=== PATIENT | male | born 1980 | race Caucasian/White ===

== ENCOUNTER 2017-03-18 13:49 | Emergency (ER) | payer MEDICAID ==
[~2017-03-18] VITALS: Ht 182.9 cm; Wt 93.2 kg
[~2017-03-18 13:49] MED LIST: ACET325T21 PO; CHLO10CA6 PO; CYAN500L PO; DIAZ10TA PO; FOLI-17 PO; GABA300C10 PO; HYDR100T25 PO; HYDR10TA4 PO; LEVO750T26 PO; LORA-446 PO; MULT-508 PO; MULT1TAB76 PO; OMEP-110 PO; ONDA4TAB7 PO; ONDA4VIA4 PO; OXYC1TAB7 PO; OXYC5TAB3 PO; PANT40VI PO; SERT100T5 PO; SERT50TA5 PO; SUCR1TAB PO; THIA100T10 PO; THIA50TA PO; TRAM-28 PO; TRAZ100T15 PO; TRAZ150T68 PO
[2017-03-18] MEDS ORDERED: SODIUM CHLORIDE 0.9% 1,000 ML IV ONE (13:57)
[2017-03-18] MEDS ORDERED: SODIUM CHLORIDE 0.9% 1,000ML IVBOLUS ONE (14:00)
[2017-03-18] MEDS ORDERED: THIAMINE 100 MG in SODIUM CHLORIDE 0.9% 50 ML IVPB ONE (14:00)
[2017-03-18] MEDS ORDERED: SODIUM CHLORIDE FLUSH 10ML SYR IVF ONE (14:00)
[2017-03-18 19:13] VITALS: BP 136/72
== END 2017-03-18 19:15 | disposition home or self-care (01) ==
LOC: ED 17:17
DX: F10.129 Alcohol abuse with intoxication, unspecified (principal)
CPT/HCPCS: 96361; 96365; 99285; J3411; J7030

== ENCOUNTER 2017-07-13 20:48 | Emergency (ER) | payer MEDICAID ==
[~2017-07-13] VITALS: Ht 182.9 cm; Wt 100.0 kg
[~2017-07-13 20:48] MED LIST changes: -CYAN500L PO; +CYAN500L2 PO; -TRAM-28 PO; +TRAM-47 PO; +TRAZ150T62 PO; -TRAZ150T68 PO
[2017-07-13] MEDS ORDERED: SODIUM CHLORIDE FLUSH 10ML SYR IVF ONE (21:00)
[2017-07-13] MEDS ORDERED: SODIUM CHLORIDE 0.9% 1,000ML IVBOLUS ONE ×2 (21:00→22:30)
[2017-07-13] MEDS ORDERED: ONDANSETRON 2MG/ML, 2ML IVPush ONE (21:00)
[2017-07-13 21:18] LABS: HEMATOCRIT 45.8 % (39.2-51.8); HEMOGLOBIN 15.9 g/dL (13.7-18.0); WHITE BLOOD COUNT 6.9 x10^3/uL (3.4-10)
[2017-07-13] MEDS ORDERED: ONDANSETRON 2MG/ML, 2ML ONE (21:19)
[2017-07-13 21:26] LABS: ASPARTATE AMINO TRANSFERASE 35 U/L (15-37); BLOOD UREA NITROGEN 8 mg/dL (7-18)
[2017-07-13] MEDS ORDERED: LORazepam 2 MG/ML, 1ML IVPush ONE (21:30)
[2017-07-13] MEDS ORDERED: LORazepam 2 MG/ML, 1ML ONE (22:06)
[2017-07-13 23:39] VITALS: BP 126/77
== END 2017-07-13 23:43 | disposition home or self-care (01) ==
LOC: ED 22:34
DX: R53.1 Weakness (principal); R11.2 Nausea with vomiting, unspecified
CPT/HCPCS: 36415; 80053; 80307; 81001; 83690; 85025; 85610; 85730; 93005; 96361; 96374; 96375; 99285; J2060; J2405; J7030; G0479

== ENCOUNTER 2018-01-19 21:00 | Emergency (ER) | payer MEDICAID ==
[~2018-01-19] VITALS: Ht 185.4 cm; Wt 100.0 kg
[2018-01-19] MEDS ORDERED: ONDANSETRON 2MG/ML, 2ML ONE (22:18)
[2018-01-19] MEDS ORDERED: ONDANSETRON 2MG/ML, 2ML IVPush ONE (22:30)
[2018-01-19] MEDS ORDERED: SODIUM CHLORIDE 0.9% 1,000ML IVBOLUS ONE (22:30)
[2018-01-19 22:52] LABS: MICROSCOPIC AUTO
[2018-01-19 22:52] LABS: BASOPHILS # (AUTO) 0.03 x10^3/uL (0-0.1); BASOPHILS % (AUTO) 0 % (0-1); EOSINOPHILS # (AUTO) 0.01 x10^3/uL (0-0.4); EOSINOPHILS % (AUTO) 0 % (1-7); LYMPHOCYTES # (AUTO) 1.43 x10^3/uL (1-3.4); LYMPHOCYTES % (AUTO) 21 % (22-44); MD NO; MEAN CORPUSCULAR HEMOGLOBIN 31.9 pg (27.5-34.5); MEAN CORPUSCULAR HGB CONC 34.2 g/dL (33.2-36.2); MEAN CORPUSCULAR VOLUME 93.2 fL (81-97); MEAN PLATELET VOLUME 7.8 fL (7.4-10.4); MONOCYTES # (AUTO) 0.71 x10^3/uL (0.2-0.8); MONOCYTES % (AUTO) 10 % (2-9); NEUTROPHILS # (AUTO) 4.63 x10^3/uL (1.8-6.8); NEUTROPHILS % (AUTO) 68 % (42-75); PLATELET COUNT 156 x10^3/uL (130-400); RED BLOOD COUNT 4.47 x10^6/uL (4.38-5.82); RED CELL DISTRIBUTION WIDTH 16.3 % (9.4-14.8)
[2018-01-19 22:54] LABS: CULTURE INDICATED? NO
[2018-01-19 22:56] LABS: AMPHETAMINE SCREEN, URINE Negative (Negative); BARBITURATE SCREEN, URINE Negative (Negative); BENZODIAZEPINE SCREEN, URINE Negative (Negative); CANNABINOID SCREEN, URINE Negative (Negative); COCAINE SCREEN, URINE Negative (Negative); METHADONE SCREEN, URINE Negative (Negative); OPIATE SCREEN, URINE Negative (Negative)
[2018-01-19 23:03] LABS: ALBUMIN 3.4 g/dL (3.4-5.0); ANION GAP 12 mmol/L (5-15); CALCIUM 7.9 mg/dL (8.5-10.1); CHLORIDE 97 mmol/L (98-107); CREATININE 0.81 mg/dL (0.7-1.3)
[2018-01-19 23:04] LABS: ALANINE AMINOTRANSFERASE 41 U/L (12-78)
[2018-01-19 23:06] LABS: ALKALINE PHOSPHATASE 43 U/L (45-117); BILIRUBIN,TOTAL 1.3 mg/dL (0.2-1.0); TOTAL PROTEIN 6.8 g/dL (6.4-8.2)
[2018-01-20 00:04] VITALS: BP 149/91
== END 2018-01-20 00:23 | disposition home or self-care (01) ==
LOC: ED 23:01
DX: K29.20 Alcoholic gastritis without bleeding (principal); Z79.899 Other long term (current) drug therapy
CPT/HCPCS: 36415; 80053; 80307; 81001; 83690; 85025; 96374; 99284; J2405; J7030

== ENCOUNTER 2018-02-06 13:31 | Emergency (ER) | payer MEDICAID ==
[~2018-02-06] VITALS: Ht 188 cm; Wt 108.0 kg
[2018-02-06 13:59] LABS: BASOPHILS # (AUTO) 0.07 x10^3/uL (0-0.1); BASOPHILS % (AUTO) 1 % (0-1); EOSINOPHILS % (AUTO) 0 % (1-7); LYMPHOCYTES # (AUTO) 1.26 x10^3/uL (1-3.4); LYMPHOCYTES % (AUTO) 13 % (22-44); MD NO; MEAN CORPUSCULAR HEMOGLOBIN 30.9 pg (27.5-34.5); MEAN CORPUSCULAR HGB CONC 33.8 g/dL (33.2-36.2); MEAN CORPUSCULAR VOLUME 91.3 fL (81-97); MEAN PLATELET VOLUME 7.1 fL (7.4-10.4); MONOCYTES # (AUTO) 0.47 x10^3/uL (0.2-0.8); MONOCYTES % (AUTO) 5 % (2-9); NEUTROPHILS # (AUTO) 7.68 x10^3/uL (1.8-6.8); NEUTROPHILS % (AUTO) 81 % (42-75); PLATELET COUNT 256 x10^3/uL (130-400); RED BLOOD COUNT 5.13 x10^6/uL (4.38-5.82); RED CELL DISTRIBUTION WIDTH 16.8 % (9.4-14.8)
[2018-02-06] MEDS ORDERED: SODIUM CHLORIDE FLUSH 10ML SYR IVF ONE (14:00)
[2018-02-06] MEDS ORDERED: LORazepam 2 MG/ML, 1ML IVPush PRN (14:00)
[2018-02-06] MEDS ORDERED: THIAMINE 100 MG in SODIUM CHLORIDE 0.9% 50 ML IVPB ONE (14:00)
[2018-02-06 14:12] LABS: ALANINE AMINOTRANSFERASE 41 U/L (12-78); ALBUMIN 3.8 g/dL (3.4-5.0); ANION GAP 16 mmol/L (5-15); CALCIUM 9.2 mg/dL (8.5-10.1); CHLORIDE 99 mmol/L (98-107); CREATININE 1.01 mg/dL (0.7-1.3)
[2018-02-06] MEDS ORDERED: SERT50TA5 PO (14:15)
[2018-02-06] MEDS ORDERED: HYDROXYZINE (14:15)
[2018-02-06] MEDS ORDERED: NALT50TA PO (14:15)
[2018-02-06 14:22] LABS: ALKALINE PHOSPHATASE 53 U/L (45-117); BILIRUBIN,TOTAL 0.7 mg/dL (0.2-1.0); TOTAL PROTEIN 7.4 g/dL (6.4-8.2)
[2018-02-06 14:32] LABS: INTERNATIONAL NORMALIZED RATIO 1.07 (0.93-1.1); PROTHROMBIN TIME 11.1 Seconds (9.6-11.5)
[2018-02-06] MEDS ORDERED: ONDANSETRON ODT 4 MG ONE (14:41)
[2018-02-06] MEDS ORDERED: ONDANSETRON ODT 4 MG PO ONE (15:00)
[2018-02-06 15:18] VITALS: BP 144/96
== END 2018-02-06 15:28 | disposition home or self-care (01) ==
LOC: ED 15:22
DX: F10.239 Alcohol dependence with withdrawal, unspecified (principal); R11.2 Nausea with vomiting, unspecified; F32.9 Major depressive disorder, single episode, unspecified; F41.9 Anxiety disorder, unspecified
CPT/HCPCS: 36415; 80053; 83690; 85025; 85610; 85730; 93005; 96365; 99285; J3411; Q0162

== ENCOUNTER 2018-03-04 22:53 | Emergency (ER) | payer MEDICAID ==
[~2018-03-04] VITALS: Ht 182.9 cm; Wt 109.0 kg
[~2018-03-04 22:53] MED LIST changes: +CHLO25CA9 PO; +HYDROXYZINE; +NALT50TA PO; +THIA100T6 PO
[2018-03-04] MEDS ORDERED: SODIUM CHLORIDE 0.9% 1,000ML IVBOLUS ONE (23:30)
[2018-03-04] MEDS ORDERED: KETOROLAC 30 MG/1 ML IVPush ONE (23:30)
[2018-03-04] MEDS ORDERED: KETOROLAC 30 MG/1 ML ONE (23:51)
[2018-03-04 23:55] LABS: BASOPHILS # (AUTO) 0.01 x10^3/uL (0-0.1); BASOPHILS % (AUTO) 0 % (0-1); EOSINOPHILS % (AUTO) 0 % (1-7); LYMPHOCYTES # (AUTO) 0.96 x10^3/uL (1-3.4); LYMPHOCYTES % (AUTO) 24 % (22-44); MD NO; MEAN CORPUSCULAR HGB CONC 34.1 g/dL (33.2-36.2); MEAN CORPUSCULAR VOLUME 93.9 fL (81-97); MEAN PLATELET VOLUME 7.4 fL (7.4-10.4); MONOCYTES # (AUTO) 0.46 x10^3/uL (0.2-0.8); MONOCYTES % (AUTO) 11 % (2-9); NEUTROPHILS # (AUTO) 2.59 x10^3/uL (1.8-6.8); NEUTROPHILS % (AUTO) 64 % (42-75); PLATELET COUNT 157 x10^3/uL (130-400); RED BLOOD COUNT 4.74 x10^6/uL (4.38-5.82); RED CELL DISTRIBUTION WIDTH 18.3 % (9.4-14.8)
[2018-03-05 00:05] LABS: ANION GAP 14 mmol/L (5-15); CALCIUM 9.8 mg/dL (8.5-10.1); CHLORIDE 97 mmol/L (98-107); CREATININE 1.08 mg/dL (0.7-1.3)
[2018-03-05 00:44] VITALS: BP 156/95
== END 2018-03-05 00:55 | disposition home or self-care (01) ==
LOC: ED 23:22
DX: F41.1 Generalized anxiety disorder (principal); M79.1 Myalgia; R42 Dizziness and giddiness; R11.2 Nausea with vomiting, unspecified; F32.9 Major depressive disorder, single episode, unspecified; Z91.018 Allergy to other foods
CPT/HCPCS: 36415; 80048; 80307; 85025; 93005; 96361; 96374; 99285; J1885; J7030

== ENCOUNTER 2018-03-13 20:29 | Emergency (ER) | payer MEDICAID ==
[~2018-03-13] VITALS: Ht 182.9 cm; Wt 110.0 kg
[2018-03-13 21:24] LABS: MEAN CORPUSCULAR HEMOGLOBIN 32.3 pg (27.5-34.5); MEAN CORPUSCULAR HGB CONC 34.3 g/dL (33.2-36.2); MEAN CORPUSCULAR VOLUME 94.3 fL (81-97); PLATELET COUNT 161 x10^3/uL (130-400); RED BLOOD COUNT 4.49 x10^6/uL (4.38-5.82); RED CELL DISTRIBUTION WIDTH 17.9 % (9.4-14.8)
[2018-03-13] MEDS ORDERED: SODIUM CHLORIDE FLUSH 10ML SYR IVF ONE (21:30)
[2018-03-13] MEDS ORDERED: SODIUM CHLORIDE 0.9% 1,000ML IVBOLUS ONE (21:30)
[2018-03-13 21:34] LABS: D-DIMER 0.36 ug/mlFEU (0.00-0.52); INTERNATIONAL NORMALIZED RATIO 1.07 (0.93-1.1); PROTHROMBIN TIME 11.1 Seconds (9.6-11.5)
[2018-03-13 21:35] LABS: ALANINE AMINOTRANSFERASE 68 U/L (12-78); ALBUMIN 4.1 g/dL (3.4-5.0); ANION GAP 15 mmol/L (5-15); CHLORIDE 99 mmol/L (98-107); CREATININE 1.23 mg/dL (0.7-1.3)
[2018-03-13 21:39] LABS: ALKALINE PHOSPHATASE 49 U/L (45-117); BILIRUBIN,TOTAL 1.2 mg/dL (0.2-1.0); TOTAL PROTEIN 7.6 g/dL (6.4-8.2); TROPONIN I < 0.015 ng/mL (0.000-0.045)
[2018-03-13 21:46] LABS: MD MORPH REVIEW ONLY
[2018-03-13 21:47] LABS: BASOPHILS # (AUTO) 0.02 x10^3/uL (0-0.1); BASOPHILS % (AUTO) 0 % (0-1); EOSINOPHILS % (AUTO) 0 % (1-7); LYMPHOCYTES # (AUTO) 0.89 x10^3/uL (1-3.4); LYMPHOCYTES % (AUTO) 22 % (22-44); MONOCYTES # (AUTO) 0.35 x10^3/uL (0.2-0.8); MONOCYTES % (AUTO) 9 % (2-9); NEUTROPHILS # (AUTO) 2.79 x10^3/uL (1.8-6.8); NEUTROPHILS % (AUTO) 69 % (42-75)
[2018-03-13 21:48] LABS: ANISOCYTOSIS 1+
[2018-03-13 21:49] LABS: <PLATELET ESTIMATE> ADEQUATE; <PLT MORPHOLOGY> NORMAL PLT MORPH
[2018-03-13 22:37] VITALS: BP 131/90
== END 2018-03-13 22:39 | disposition home or self-care (01) ==
LOC: ED 21:57
DX: R07.2 Precordial pain (principal); F10.20 Alcohol dependence, uncomplicated; Z91.018 Allergy to other foods
CPT/HCPCS: 36415; 71045; 80053; 80307; 83690; 84484; 85025; 85379; 85610; 85730; 93005; 99285; J7030

== ENCOUNTER 2018-03-27 13:08 | Inpatient (IN) | payer MEDICAID ==
[~2018-03-27] VITALS: Ht 182.9 cm; Wt 106.1 kg
[2018-03-27] MEDS ORDERED: MAGNESIUM SULFATE 1 GM, THIAMINE 100 MG, FOLIC ACID 1 MG, MVI ADULT 10 ML in SODIUM CHL... IV ONE (13:30)
[2018-03-27] MEDS ORDERED: SODIUM CHLORIDE FLUSH 10ML SYR IVF ONE (13:30)
[2018-03-27] MEDS ORDERED: SODIUM CHLORIDE 0.9% 1,000ML IVBOLUS ONE (13:30)
[2018-03-27] MEDS ORDERED: CHLORDIAZEPOXIDE 25 MG CAPSULE PO ONE (13:30)
[2018-03-27] MEDS ORDERED: LORazepam 2 MG/ML, 1ML ONE ×2 (13:59→14:55)
[2018-03-27] MEDS ORDERED: CHLORDIAZEPOXIDE 25 MG CAPSULE ONE (13:59)
[2018-03-27] MEDS: LORazepam 2 MG/ML, 1ML IVPush PRN ×4 (14:03→17:28)
[2018-03-27 14:22] LABS: BASOPHILS # (AUTO) 0.01 x10^3/uL (0-0.1); BASOPHILS % (AUTO) 0 % (0-1); EOSINOPHILS % (AUTO) 0 % (1-7); LYMPHOCYTES # (AUTO) 0.57 x10^3/uL (1-3.4); LYMPHOCYTES % (AUTO) 12 % (22-44); MD NO; MEAN CORPUSCULAR HEMOGLOBIN 32.5 pg (27.5-34.5); MEAN CORPUSCULAR HGB CONC 33.9 g/dL (33.2-36.2); MEAN CORPUSCULAR VOLUME 95.8 fL (81-97); MEAN PLATELET VOLUME 7.1 fL (7.4-10.4); MONOCYTES # (AUTO) 0.19 x10^3/uL (0.2-0.8); MONOCYTES % (AUTO) 4 % (2-9); NEUTROPHILS # (AUTO) 4.05 x10^3/uL (1.8-6.8); NEUTROPHILS % (AUTO) 84 % (42-75); PLATELET COUNT 147 x10^3/uL (130-400); RED BLOOD COUNT 4.25 x10^6/uL (4.38-5.82); RED CELL DISTRIBUTION WIDTH 18.9 % (9.4-14.8)
[2018-03-27 14:31] LABS: ALBUMIN 4.1 g/dL (3.4-5.0); ANION GAP 19 mmol/L (5-15); CALCIUM 8.2 mg/dL (8.5-10.1); CHLORIDE 95 mmol/L (98-107)
[2018-03-27 14:34] LABS: ALANINE AMINOTRANSFERASE 96 U/L (12-78); ALKALINE PHOSPHATASE 55 U/L (45-117); BILIRUBIN,TOTAL 1.5 mg/dL (0.2-1.0); CREATININE 1.13 mg/dL (0.7-1.3); TOTAL PROTEIN 7.5 g/dL (6.4-8.2)
[2018-03-27 15:09] LABS: ACETONE, SERUM Small (20mg/dL) mg/dL (Negative)
[2018-03-27] MEDS ORDERED: POTASSIUM CHLORIDE IV SCH (15:26)
[2018-03-27] MEDS ORDERED: [UNRECOGNIZED DRUG - OTHER] IV SCH (15:26)
[2018-03-27] MEDS ORDERED: MVI ADULT IV SCH (15:26)
[2018-03-27] MEDS ORDERED: FOLIC ACID IV SCH (15:26)
[2018-03-27] MEDS ORDERED: MAGNESIUM SULFATE IV SCH (15:26)
[2018-03-27] MEDS ORDERED: CHLORDIAZEPOXIDE 25 MG CAPSULE PO PRN ×2 (15:30)
[2018-03-27] MEDS ORDERED: ONDANSETRON 2MG/ML, 2ML IV PRN (15:30)
[2018-03-27] MEDS ORDERED: MAGNESIUM SULFATE PMX 4GM/100M 100 ML IV ONE (15:30)
[2018-03-27] MEDS ORDERED: ACETAMINOPHEN 325 MG TABLET PO PRN (15:30)
[2018-03-27] MEDS ORDERED: hydrOXyzine 10MG TABLET PO PRN (16:00)
[2018-03-27] MEDS ORDERED: ENOXAPARIN 40 MG/0.4 ML ONE (16:04)
[2018-03-27] MEDS: ENOXAPARIN 40 MG/0.4 ML SQ SCH (16:15)
[2018-03-27] MEDS ORDERED: PROMETHAZINE 25MG TABLET PO PRN (16:30)
[2018-03-27 17:44] VITALS: BP 147/81
[2018-03-27 17:57] VITALS: BP 147/81
[2018-03-27] MEDS ORDERED: [UNRECOGNIZED DRUG - OTHER] MC SCH (18:00)
[2018-03-27] MEDS ORDERED: KCL MC SCH (18:00)
[2018-03-27] MEDS: CHLORDIAZEPOXIDE 25 MG CAPSULE PO PRN (18:34)
[2018-03-27 18:58] VITALS: BP 125/81
[2018-03-27] MEDS: TRAZODONE 100MG TABLET PO SCH (23:21)
[2018-03-28] MEDS: D5%-0.45NACL+KCL 20MEQ 1,000 ML IV SCH ×3 (00:22→20:55)
[2018-03-28 00:50] VITALS: BP 144/85
[2018-03-28] MEDS: CHLORDIAZEPOXIDE 25 MG CAPSULE PO PRN ×2 (05:25→10:04)
[2018-03-28 06:08] LABS: CHLORIDE 101 mmol/L (98-107)
[2018-03-28 06:12] LABS: ANION GAP 10 mmol/L (5-15); CREATININE 0.79 mg/dL (0.7-1.3)
[2018-03-28] MEDS ORDERED: POTASSIUM CHLORIDE 20 MEQ TAB.ER.PRT PO ONE (06:30)
[2018-03-28 06:53] VITALS: BP 128/80
[2018-03-28] MEDS: THIAMINE 100MG TABLET PO SCH (09:50)
[2018-03-28] MEDS: FOLIC ACID 1 MG TABLET PO SCH (09:50)
[2018-03-28 12:12] VITALS: BP 136/88
[2018-03-28] MEDS: DOCUSATE 100 MG CAPSULE PO SCH ×2 (13:02→20:55)
[2018-03-28] MEDS: ENOXAPARIN 40 MG/0.4 ML SQ SCH (16:48)
[2018-03-28 18:42] VITALS: BP_SYST 130; BP_SYST 141; BP_DIAS 84; BP_DIAS 99
[2018-03-28] MEDS: TRAZODONE 100MG TABLET PO SCH (20:54)
[2018-03-28] MEDS: CHLORDIAZEPOXIDE 10 MG CAPSULE PO PRN (21:08)
[2018-03-29 00:41] VITALS: BP 114/72
[2018-03-29] MEDS: CHLORDIAZEPOXIDE 10 MG CAPSULE PO PRN (03:30)
[2018-03-29] MEDS: D5%-0.45NACL+KCL 20MEQ 1,000 ML IV SCH (04:44)
[2018-03-29 06:30] LABS: ANION GAP 9 mmol/L (5-15); CALCIUM 7.5 mg/dL (8.5-10.1); CHLORIDE 105 mmol/L (98-107)
[2018-03-29 06:50] VITALS: BP 145/90
[2018-03-29] MEDS: DOCUSATE 100 MG CAPSULE PO SCH ×2 (08:31→19:59)
[2018-03-29] MEDS: THIAMINE 100MG TABLET PO SCH (08:31)
[2018-03-29] MEDS: FOLIC ACID 1 MG TABLET PO SCH (08:32)
[2018-03-29 13:50] VITALS: BP 145/72
[2018-03-29] MEDS: ENOXAPARIN 40 MG/0.4 ML SQ SCH (15:30)
[2018-03-29] MEDS: POTASSIUM CHLORIDE 20 MEQ TAB.ER.PRT PO SCH (16:19)
[2018-03-29] MEDS ORDERED: D5%-0.45NACL+KCL 20MEQ 1,000 ML IV SCH (18:30)
[2018-03-29 19:04] VITALS: BP 156/96
[2018-03-29] MEDS: TRAZODONE 100MG TABLET PO SCH (23:17)
[2018-03-30 03:55] VITALS: BP 103/70
[2018-03-30 06:41] VITALS: BP 138/102
[2018-03-30] MEDS: POTASSIUM CHLORIDE 20 MEQ TAB.ER.PRT PO SCH (08:00)
[2018-03-30] MEDS: DOCUSATE 100 MG CAPSULE PO SCH (08:00)
[2018-03-30] MEDS: FOLIC ACID 1 MG TABLET PO SCH (08:00)
[2018-03-30] MEDS: THIAMINE 100MG TABLET PO SCH (08:00)
[2018-03-30 13:47] VITALS: BP 162/104
[2018-03-30] MEDS: ENOXAPARIN 40 MG/0.4 ML SQ SCH (15:30)
[2018-03-30 16:18] VITALS: BP 151/106
== END 2018-03-30 16:49 | disposition home or self-care (01) | DRG 897 ==
LOC: ED 15:16 → EDIP 15:17 → ED 15:31 → 4WST 17:36
PROVIDERS: ADMIT Family Medicine; ATTEND Internal Medicine
DX: F10.239 Alcohol dependence with withdrawal, unspecified (principal); E87.2 Acidosis; E86.0 Dehydration; E87.6 Hypokalemia; E83.42 Hypomagnesemia; F41.1 Generalized anxiety disorder; F32.9 Major depressive disorder, single episode, unspecified; G47.00 Insomnia, unspecified; F19.10 Other psychoactive substance abuse, uncomplicated; Z82.49 Family history of ischemic heart disease and other diseases of the circulatory system; Z81.8 Family history of other mental and behavioral disorders; Z83.3 Family history of diabetes mellitus; Z82.5 Family history of asthma and other chronic lower respiratory diseases; Z91.018 Allergy to other foods
CPT/HCPCS: 36415; 80048; 80053; 80307; 82010; 83735; 85025; 96372; 96374; 99285; J1650; J3411; J3475; J2060; J3480; J7030

== ENCOUNTER 2018-04-24 00:07 | Emergency (ER) | payer MEDICAID ==
[~2018-04-24] VITALS: Ht 182.9 cm; Wt 107.3 kg
[2018-04-24] MEDS ORDERED: SODIUM CHLORIDE FLUSH 10ML SYR IVF ONE ×2 (00:30→01:30)
[2018-04-24] MEDS ORDERED: SODIUM CHLORIDE 0.9% 1,000ML IVBOLUS ONE ×2 (00:30→01:30)
[2018-04-24] MEDS ORDERED: THIAMINE 100MG TABLET PO ONE (00:30)
[2018-04-24] MEDS ORDERED: THIAMINE 100MG TABLET ONE (00:40)
[2018-04-24 01:45] LABS: BASOPHILS # (AUTO) 0.03 x10^3/uL (0-0.1); BASOPHILS % (AUTO) 1 % (0-1); EOSINOPHILS % (AUTO) 0 % (1-7); LYMPHOCYTES # (AUTO) 2.82 x10^3/uL (1-3.4); LYMPHOCYTES % (AUTO) 51 % (22-44); MD NO; MEAN CORPUSCULAR HEMOGLOBIN 30.9 pg (27.5-34.5); MEAN CORPUSCULAR HGB CONC 33.4 g/dL (33.2-36.2); MEAN CORPUSCULAR VOLUME 92.5 fL (81-97); MONOCYTES % (AUTO) 7 % (2-9); NEUTROPHILS # (AUTO) 2.24 x10^3/uL (1.8-6.8); NEUTROPHILS % (AUTO) 41 % (42-75); PLATELET COUNT 225 x10^3/uL (130-400); RED BLOOD COUNT 4.54 x10^6/uL (4.38-5.82); RED CELL DISTRIBUTION WIDTH 18.7 % (9.4-14.8)
[2018-04-24 01:57] LABS: ALBUMIN 3.9 g/dL (3.4-5.0); ANION GAP 15 mmol/L (5-15); CALCIUM 8.4 mg/dL (8.5-10.1); CHLORIDE 103 mmol/L (98-107); CREATININE 0.96 mg/dL (0.7-1.3)
[2018-04-24 03:30] VITALS: BP 101/69
== END 2018-04-24 03:33 | disposition home or self-care (01) ==
LOC: ED 00:18
DX: F10.220 Alcohol dependence with intoxication, uncomplicated (principal); E86.0 Dehydration
CPT/HCPCS: 36415; 80048; 82040; 85025; 96360; 96361; 99285; J7030

== ENCOUNTER 2018-04-24 09:11 | Inpatient (IN) | payer MEDICAID ==
[~2018-04-24] VITALS: Ht 182.9 cm; Wt 109.1 kg
[2018-04-24] MEDS ORDERED: SODIUM CHLORIDE 0.9% 1,000 ML IV ONE ×2 (09:38→11:34)
[2018-04-24] MEDS ORDERED: SODIUM CHLORIDE 0.9% 1,000ML IVBOLUS ONE (10:00)
[2018-04-24] MEDS ORDERED: SODIUM CHLORIDE FLUSH 10ML SYR IVF ONE (10:00)
[2018-04-24] MEDS ORDERED: LORazepam 2 MG/ML, 1ML ONE ×2 (10:02→11:30)
[2018-04-24] MEDS: LORazepam 2 MG/ML, 1ML IVPush PRN ×4 (10:09→11:52)
[2018-04-24 10:13] LABS: BASOPHILS # (AUTO) 0.02 x10^3/uL (0-0.1); BASOPHILS % (AUTO) 0 % (0-1); EOSINOPHILS % (AUTO) 0 % (1-7); LYMPHOCYTES # (AUTO) 2.18 x10^3/uL (1-3.4); LYMPHOCYTES % (AUTO) 41 % (22-44); MD NO; MEAN CORPUSCULAR HEMOGLOBIN 31.5 pg (27.5-34.5); MEAN CORPUSCULAR HGB CONC 33.7 g/dL (33.2-36.2); MEAN CORPUSCULAR VOLUME 93.6 fL (81-97); MEAN PLATELET VOLUME 7.4 fL (7.4-10.4); MONOCYTES # (AUTO) 0.47 x10^3/uL (0.2-0.8); MONOCYTES % (AUTO) 9 % (2-9); NEUTROPHILS # (AUTO) 2.72 x10^3/uL (1.8-6.8); NEUTROPHILS % (AUTO) 50 % (42-75); PLATELET COUNT 219 x10^3/uL (130-400); RED BLOOD COUNT 4.61 x10^6/uL (4.38-5.82); RED CELL DISTRIBUTION WIDTH 19.1 % (9.4-14.8)
[2018-04-24 10:17] LABS: INTERNATIONAL NORMALIZED RATIO 1.03 (0.93-1.1); PROTHROMBIN TIME 10.7 Seconds (9.6-11.5)
[2018-04-24 10:38] LABS: ALANINE AMINOTRANSFERASE 183 U/L (12-78); ALBUMIN 4.2 g/dL (3.4-5.0); ANION GAP 20 mmol/L (5-15); CALCIUM 9.4 mg/dL (8.5-10.1); CHLORIDE 98 mmol/L (98-107); CREATININE 0.94 mg/dL (0.7-1.3)
[2018-04-24 10:40] LABS: ALKALINE PHOSPHATASE 57 U/L (45-117); BILIRUBIN,TOTAL 0.8 mg/dL (0.2-1.0); TOTAL PROTEIN 7.5 g/dL (6.4-8.2)
[2018-04-24] MEDS ORDERED: POTASSIUM CHLORIDE 20 MEQ, MAGNESIUM SULFATE 2 GM, THIAMINE 100 MG, MVI ADULT 10 ML, FO... IV SCH ×2 (11:46→16:00)
[2018-04-24] MEDS ORDERED: ACETAMINOPHEN 325 MG TABLET PO PRN (12:00)
[2018-04-24] MEDS ORDERED: LORazepam 0.5MG TABLET PO PRN (12:00)
[2018-04-24] MEDS ORDERED: ONDANSETRON ODT 4 MG PO PRN (12:00)
[2018-04-24] MEDS ORDERED: MULTIVITAMINS/MINERALS TABLET PO SCH (12:00)
[2018-04-24] MEDS ORDERED: LORazepam 2 MG/ML, 1ML IV PRN ×5 (12:00)
[2018-04-24] MEDS ORDERED: SODIUM CHLORIDE FLUSH 10ML SYR IVF PRN (12:00)
[2018-04-24] MEDS ORDERED: ENALAPRILAT 1.25 MG/ML, 2ML IVPush PRN (12:00)
[2018-04-24] MEDS ORDERED: ONDANSETRON 2MG/ML, 2ML IVPush PRN (12:00)
[2018-04-24] MEDS ORDERED: PROMETHAZINE 25 MG/ML, 1ML IM PRN (12:00)
[2018-04-24] MEDS ORDERED: POLYETHYLENE GLYCOL 17 GM PACKET PO PRN (12:00)
[2018-04-24] MEDS ORDERED: hydrALAzine 20 MG/ML, 1ML IVPush PRN (12:00)
[2018-04-24] MEDS ORDERED: LORazepam 1MG TABLET PO PRN ×4 (12:00)
[2018-04-24] MEDS ORDERED: FOLIC ACID 5 MG/ML IM ONE (12:00)
[2018-04-24 12:38] LABS: BASOPHILS # (AUTO) 0.02 x10^3/uL (0-0.1); BASOPHILS % (AUTO) 0 % (0-1); EOSINOPHILS % (AUTO) 0 % (1-7); HEMOGRAM NOTE RECHECKED; LYMPHOCYTES # (AUTO) 1.46 x10^3/uL (1-3.4); LYMPHOCYTES % (AUTO) 33 % (22-44); MD NO; MEAN CORPUSCULAR HEMOGLOBIN 31.5 pg (27.5-34.5); MEAN CORPUSCULAR HGB CONC 33.5 g/dL (33.2-36.2); MEAN CORPUSCULAR VOLUME 93.9 fL (81-97); MEAN PLATELET VOLUME 7.4 fL (7.4-10.4); MONOCYTES # (AUTO) 0.43 x10^3/uL (0.2-0.8); MONOCYTES % (AUTO) 10 % (2-9); NEUTROPHILS % (AUTO) 58 % (42-75); PLATELET COUNT 175 x10^3/uL (130-400); RED BLOOD COUNT 4.13 x10^6/uL (4.38-5.82); RED CELL DISTRIBUTION WIDTH 19.2 % (9.4-14.8)
[2018-04-24] MEDS ORDERED: hydrOXyzine 50MG TABLET PO PRN (13:00)
[2018-04-24] MEDS ORDERED: CHLORDIAZEPOXIDE 25 MG CAPSULE PO PRN ×3 (13:30)
[2018-04-24] MEDS ORDERED: CHLORDIAZEPOXIDE 10 MG CAPSULE PO PRN (13:30)
[2018-04-24 14:00] VITALS: BP 139/79
[2018-04-24] MEDS ORDERED: POTASSIUM CHLORIDE 20 MEQ TAB.ER.PRT PO ONE (14:00)
[2018-04-24 14:02] LABS: MICROSCOPIC NOT IND
[2018-04-24 14:07] LABS: CULTURE INDICATED? NO
[2018-04-24 14:30] VITALS: BP 139/79
[2018-04-24] MEDS ORDERED: MAGNESIUM CHLORIDE 64 MG TABLET.DR PO ONE (14:30)
[2018-04-24] MEDS ORDERED: POTASSIUM PHOS 4.4 MEQ/ML IV ONE (14:30)
[2018-04-24] MEDS: ENOXAPARIN 40 MG/0.4 ML SQ SCH (14:44)
[2018-04-24] MEDS ORDERED: NEUTRA PHOS K 250 MG TABLET PO ONE (15:30)
[2018-04-24] MEDS ORDERED: MAGNESIUM SULFATE PMX 2GM/50ML 50 ML IV ONE (19:00)
[2018-04-24 19:18] VITALS: BP 144/90
[2018-04-24] MEDS: TRAZODONE 100MG TABLET PO SCH (21:57)
[2018-04-25 01:26] VITALS: BP 119/79
[2018-04-25] MEDS ORDERED: POTASSIUM CHLORIDE 20 MEQ in LACTATED RINGERS 1,000 ML IV SCH (06:00)
[2018-04-25 06:06] LABS: CHLORIDE 104 mmol/L (98-107)
[2018-04-25 06:18] LABS: ALANINE AMINOTRANSFERASE 144 U/L (12-78); ALBUMIN 3.2 g/dL (3.4-5.0); ALKALINE PHOSPHATASE 50 U/L (45-117); ANION GAP 11 mmol/L (5-15); CALCIUM 8.2 mg/dL (8.5-10.1); CREATININE 0.83 mg/dL (0.7-1.3); TOTAL PROTEIN 6.2 g/dL (6.4-8.2)
[2018-04-25 07:19] VITALS: BP 134/92
[2018-04-25 07:56] LABS: BASOPHILS # (AUTO) 0.01 x10^3/uL (0-0.1); BASOPHILS % (AUTO) 0 % (0-1); EOSINOPHILS # (AUTO) 0.01 x10^3/uL (0-0.4); EOSINOPHILS % (AUTO) 0 % (1-7); LYMPHOCYTES % (AUTO) 45 % (22-44); MD SCAN; MEAN CORPUSCULAR HEMOGLOBIN 31.5 pg (27.5-34.5); MEAN CORPUSCULAR HGB CONC 33.9 g/dL (33.2-36.2); MEAN CORPUSCULAR VOLUME 93.1 fL (81-97); MEAN PLATELET VOLUME 7.4 fL (7.4-10.4); MONOCYTES # (AUTO) 0.23 x10^3/uL (0.2-0.8); MONOCYTES % (AUTO) 6 % (2-9); NEUTROPHILS # (AUTO) 1.87 x10^3/uL (1.8-6.8); NEUTROPHILS % (AUTO) 49 % (42-75); PLATELET COUNT 153 x10^3/uL (130-400); RED BLOOD COUNT 4.32 x10^6/uL (4.38-5.82); RED CELL DISTRIBUTION WIDTH 18.5 % (9.4-14.8)
[2018-04-25] MEDS: MULTIVITAMINS/MINERALS TABLET PO SCH (08:59)
[2018-04-25] MEDS: THIAMINE 100MG TABLET PO SCH (08:59)
[2018-04-25] MEDS: FOLIC ACID 1 MG TABLET PO SCH (09:00)
[2018-04-25] MEDS: SENNA/DOCUSATE TABLET PO SCH (09:00)
[2018-04-25] MEDS: ENOXAPARIN 40 MG/0.4 ML SQ SCH (12:27)
[2018-04-25 13:52] VITALS: BP 128/78
[2018-04-25 14:21] LABS: CLOSTRIDIUM DIFFICILE ANTIGEN POSITIVE; CLOSTRIDIUM DIFFICILE TOXIN NEGATIVE (Negative)
[2018-04-25] MEDS: POTASSIUM CHLORIDE 20 MEQ in LACTATED RINGERS 1,000 ML IV SCH (18:27)
[2018-04-25 19:20] VITALS: BP 115/68
[2018-04-25] MEDS ORDERED: LORazepam 0.5MG TABLET ONE (21:51)
[2018-04-25] MEDS: TRAZODONE 100MG TABLET PO SCH (22:26)
[2018-04-26 01:17] VITALS: BP 147/97
[2018-04-26] MEDS ORDERED: THIAMINE 100 MG in DEXTROSE 5% 50 ML IVPB SCH (09:00)
[2018-04-26] MEDS: POTASSIUM CHLORIDE 20 MEQ in LACTATED RINGERS 1,000 ML IV SCH (09:05)
[2018-04-26] MEDS: SENNA/DOCUSATE TABLET PO SCH (09:05)
[2018-04-26] MEDS: FOLIC ACID 1 MG TABLET PO SCH (09:05)
[2018-04-26] MEDS: MULTIVITAMINS/MINERALS TABLET PO SCH (09:05)
[2018-04-26] MEDS: THIAMINE 100MG TABLET PO SCH (09:06)
[2018-04-26 09:19] VITALS: BP 147/92
[2018-04-26] MEDS: ENOXAPARIN 40 MG/0.4 ML SQ SCH (14:31)
[2018-04-26 17:31] VITALS: BP 138/91
== END 2018-04-26 20:37 | disposition home or self-care (01) | DRG 897 ==
LOC: ED 10:14 → EDIP 11:34 → 4WST 13:24
PROVIDERS: ADMIT Student in an Organized Health Care Education/Training Program; ATTEND Student in an Organized Health Care Education/Training Program
DX: F10.239 Alcohol dependence with withdrawal, unspecified (principal); F33.1 Major depressive disorder, recurrent, moderate; E87.2 Acidosis; E86.0 Dehydration; E11.65 Type 2 diabetes mellitus with hyperglycemia; E66.9 Obesity, unspecified; Z68.32 Body mass index [BMI] 32.0-32.9, adult; Z91.018 Allergy to other foods; F17.200 Nicotine dependence, unspecified, uncomplicated; F40.10 Social phobia, unspecified; G47.00 Insomnia, unspecified; I11.0 Hypertensive heart disease with heart failure; I25.10 Atherosclerotic heart disease of native coronary artery without angina pectoris; I50.9 Heart failure, unspecified; J44.9 Chronic obstructive pulmonary disease, unspecified; Z82.0 Family history of epilepsy and other diseases of the nervous system; Z86.72 Personal history of thrombophlebitis
CPT/HCPCS: 36415; 99285; J7042; 71045; 80053; 80307; 81003; 82140; 83690; 83735; 84100; 85025; 85610; 85730; 87324; 87493; 93005; 96361; 96374; 96376; J1650; J2405; J3411; J3475; J3480; J2060; J7030; J7120

== ENCOUNTER 2018-05-06 11:20 | Inpatient (IN) | payer MEDICAID ==
[~2018-05-06] VITALS: Ht 182.9 cm; Wt 104.1 kg
[2018-05-06] MEDS ORDERED: LORazepam 2 MG/ML, 1ML ONE (11:57)
[2018-05-06] MEDS ORDERED: SODIUM CHLORIDE 0.9% 1,000ML IVBOLUS ONE (12:00)
[2018-05-06] MEDS ORDERED: CHLORDIAZEPOXIDE 25 MG CAPSULE PO ONE (12:00)
[2018-05-06] MEDS ORDERED: SODIUM CHLORIDE FLUSH 10ML SYR IVF ONE (12:00)
[2018-05-06] MEDS ORDERED: LORazepam 2 MG/ML, 1ML IVPush ONE (12:00)
[2018-05-06] MEDS ORDERED: CHLORDIAZEPOXIDE 25 MG CAPSULE ONE (12:01)
[2018-05-06 12:10] LABS: ALANINE AMINOTRANSFERASE 153 U/L (12-78); ALBUMIN 4.1 g/dL (3.4-5.0); ANION GAP 20 mmol/L (5-15); CALCIUM 9.4 mg/dL (8.5-10.1); CHLORIDE 99 mmol/L (98-107); CREATININE 0.95 mg/dL (0.7-1.3)
[2018-05-06 12:12] LABS: ALKALINE PHOSPHATASE 53 U/L (45-117); BILIRUBIN,TOTAL 1.1 mg/dL (0.2-1.0); TOTAL PROTEIN 7.4 g/dL (6.4-8.2)
[2018-05-06] MEDS ORDERED: MAGNESIUM SULFATE 4 GM, THIAMINE 100 MG, FOLIC ACID 1 MG, MVI ADULT 10 ML in SODIUM CHL... IV ONE (12:30)
[2018-05-06 12:48] LABS: ACETONE, SERUM Trace (10mg/dL) mg/dL (Negative)
[2018-05-06] MEDS ORDERED: LACTATED RINGERS 1,000 ML IV SCH (13:00)
[2018-05-06] MEDS ORDERED: CHLORDIAZEPOXIDE 10 MG CAPSULE PO PRN (13:30)
[2018-05-06] MEDS ORDERED: CHLORDIAZEPOXIDE 25 MG CAPSULE PO PRN ×3 (13:30)
[2018-05-06] MEDS ORDERED: PROMETHAZINE 25MG TABLET PO PRN (13:30)
[2018-05-06] MEDS ORDERED: PROMETHAZINE 12.5 MG SUPP PR PRN (13:30)
[2018-05-06 13:50] VITALS: BP 122/82
[2018-05-06] MEDS: ENOXAPARIN 40 MG/0.4 ML SQ SCH (14:12)
[2018-05-06] MEDS ORDERED: BISACODYL 10 MG SUPP PR PRN (17:00)
[2018-05-06 20:39] VITALS: BP 145/82
[2018-05-06] MEDS: SENNA/DOCUSATE TABLET PO SCH (21:09)
[2018-05-06] MEDS: D5%-0.9% NACL+KCL 20MEQ 1,000 ML IV SCH (21:10)
[2018-05-07 03:00] VITALS: BP 128/81
[2018-05-07 05:12] LABS: BASOPHILS # (AUTO) 0.01 x10^3/uL (0-0.1); BASOPHILS % (AUTO) 0 % (0-1); EOSINOPHILS # (AUTO) 0.01 x10^3/uL (0-0.4); EOSINOPHILS % (AUTO) 0 % (1-7); LYMPHOCYTES # (AUTO) 1.57 x10^3/uL (1-3.4); LYMPHOCYTES % (AUTO) 41 % (22-44); MD NO; MEAN CORPUSCULAR HEMOGLOBIN 32.3 pg (27.5-34.5); MEAN CORPUSCULAR HGB CONC 34.3 g/dL (33.2-36.2); MEAN CORPUSCULAR VOLUME 94.2 fL (81-97); MEAN PLATELET VOLUME 7.3 fL (7.4-10.4); MONOCYTES # (AUTO) 0.33 x10^3/uL (0.2-0.8); MONOCYTES % (AUTO) 9 % (2-9); NEUTROPHILS # (AUTO) 1.91 x10^3/uL (1.8-6.8); NEUTROPHILS % (AUTO) 50 % (42-75); PLATELET COUNT 187 x10^3/uL (130-400); RED BLOOD COUNT 4.16 x10^6/uL (4.38-5.82); RED CELL DISTRIBUTION WIDTH 19.2 % (9.4-14.8)
[2018-05-07 05:25] LABS: ALBUMIN 3.6 g/dL (3.4-5.0); ANION GAP 7 mmol/L (5-15); CALCIUM 8.4 mg/dL (8.5-10.1); CHLORIDE 104 mmol/L (98-107)
[2018-05-07] MEDS: D5%-0.9% NACL+KCL 20MEQ 1,000 ML IV SCH ×2 (05:25→12:00)
[2018-05-07 05:31] LABS: ALANINE AMINOTRANSFERASE 109 U/L (12-78); ALKALINE PHOSPHATASE 46 U/L (45-117); BILIRUBIN,TOTAL 2.2 mg/dL (0.2-1.0); CREATININE 0.88 mg/dL (0.7-1.3); TOTAL PROTEIN 6.4 g/dL (6.4-8.2)
[2018-05-07 06:49] VITALS: BP 133/86
[2018-05-07] MEDS: DOCUSATE 100 MG CAPSULE PO SCH (10:12)
[2018-05-07 12:29] VITALS: BP 151/83
[2018-05-07] MEDS: ENOXAPARIN 40 MG/0.4 ML SQ SCH (14:04)
[2018-05-07 19:47] VITALS: BP 154/100
[2018-05-07] MEDS: SENNA/DOCUSATE TABLET PO SCH (19:55)
[2018-05-07 20:55] VITALS: BP 156/109
[2018-05-07 21:33] VITALS: BP 138/90
[2018-05-08 01:58] VITALS: BP 124/81
[2018-05-08 06:30] VITALS: BP 123/84
[2018-05-08] MEDS: DOCUSATE 100 MG CAPSULE PO SCH (09:00)
[2018-05-08 13:10] VITALS: BP 141/96
[2018-05-08] MEDS: ENOXAPARIN 40 MG/0.4 ML SQ SCH (14:00)
== END 2018-05-08 14:54 | disposition home or self-care (01) | DRG 897 ==
LOC: ED 12:42 → EDIP 12:43 → ED 13:10 → 4EST 13:48 → 2N 05-07 19:53 → DCLOUNGE 05-08 14:36
PROVIDERS: ADMIT Family Medicine; ATTEND Family Medicine
DX: F10.230 Alcohol dependence with withdrawal, uncomplicated (principal); E83.42 Hypomagnesemia; E11.9 Type 2 diabetes mellitus without complications; E86.0 Dehydration; F40.240 Claustrophobia; F41.1 Generalized anxiety disorder; F43.10 Post-traumatic stress disorder, unspecified; G47.419 Narcolepsy without cataplexy; I11.0 Hypertensive heart disease with heart failure; I25.10 Atherosclerotic heart disease of native coronary artery without angina pectoris; I50.9 Heart failure, unspecified; J44.9 Chronic obstructive pulmonary disease, unspecified; Z91.018 Allergy to other foods
CPT/HCPCS: 36415; 80053; 80307; 82010; 83735; 84100; 85025; 93005; 96360; 99285; J1650; J3411; J3475; Q0169; J2060; J3480; J7030

== ENCOUNTER 2018-05-22 11:51 | Emergency (ER) | payer MEDICAID ==
[~2018-05-22] VITALS: Ht 170.2 cm; Wt 110.0 kg
[~2018-05-22 11:51] MED LIST changes: -THIA100T6 PO; +THIA100T67 PO; +TRAZ-137 PO; -TRAZ100T15 PO
[2018-05-22] MEDS ORDERED: MULT-6 PO (12:29)
[2018-05-22] MEDS ORDERED: HYDR25TA11 PO (12:29)
[2018-05-22 12:54] LABS: BASOPHILS # (AUTO) 0.01 x10^3/uL (0-0.1); BASOPHILS % (AUTO) 0 % (0-1); EOSINOPHILS % (AUTO) 0 % (1-7); LYMPHOCYTES % (AUTO) 34 % (22-44); MD NO; MEAN CORPUSCULAR HEMOGLOBIN 32.5 pg (27.5-34.5); MEAN CORPUSCULAR HGB CONC 33.9 g/dL (33.2-36.2); MEAN CORPUSCULAR VOLUME 95.9 fL (81-97); MEAN PLATELET VOLUME 6.8 fL (7.4-10.4); MONOCYTES # (AUTO) 0.15 x10^3/uL (0.2-0.8); MONOCYTES % (AUTO) 4 % (2-9); NEUTROPHILS # (AUTO) 2.14 x10^3/uL (1.8-6.8); NEUTROPHILS % (AUTO) 61 % (42-75); PLATELET COUNT 171 x10^3/uL (130-400); RED BLOOD COUNT 4.82 x10^6/uL (4.38-5.82); RED CELL DISTRIBUTION WIDTH 19.1 % (9.4-14.8)
[2018-05-22 13:07] LABS: ALANINE AMINOTRANSFERASE 328 U/L (12-78); ALBUMIN 4.3 g/dL (3.4-5.0); ANION GAP 14 mmol/L (5-15); CALCIUM 8.3 mg/dL (8.5-10.1); CHLORIDE 104 mmol/L (98-107); CREATININE 0.84 mg/dL (0.7-1.3)
[2018-05-22 13:08] LABS: ALKALINE PHOSPHATASE 61 U/L (45-117); BILIRUBIN,TOTAL 0.5 mg/dL (0.2-1.0); TOTAL PROTEIN 7.9 g/dL (6.4-8.2)
[2018-05-22 13:09] LABS: ACETAMINOPHEN < 2 mcg/mL (10-30); SALICYLATE LEVEL < 1.7 mg/dL (2.8-20.0)
[2018-05-22] MEDS ORDERED: CHLORDIAZEPOXIDE 25 MG CAPSULE PO PRN (17:00)
[2018-05-22] MEDS ORDERED: CHLORDIAZEPOXIDE 25 MG CAPSULE ONE (17:04)
[2018-05-22 17:14] LABS: AMPHETAMINE SCREEN, URINE Negative (Negative); BARBITURATE SCREEN, URINE Negative (Negative); BENZODIAZEPINE SCREEN, URINE Positive (Negative); CANNABINOID SCREEN, URINE Negative (Negative); COCAINE SCREEN, URINE Negative (Negative); METHADONE SCREEN, URINE Negative (Negative); OPIATE SCREEN, URINE Negative (Negative)
[2018-05-23 01:47] VITALS: BP 144/81
[2018-05-23] MEDS ORDERED: CHLORDIAZEPOXIDE 25 MG CAPSULE ONE ×2 (03:56→03:57)
[2018-05-23] MEDS ORDERED: CHLORDIAZEPOXIDE 25 MG CAPSULE PO ONE (04:00)
[2018-05-23] MEDS ORDERED: ONDANSETRON ODT 4 MG ONE (04:02)
== END 2018-05-23 04:52 | disposition home or self-care (01) ==
LOC: ED 21:47
DX: F10.129 Alcohol abuse with intoxication, unspecified (principal); F32.89 Other specified depressive episodes; F32.9 Major depressive disorder, single episode, unspecified
CPT/HCPCS: 36415; 80053; 80307; 80329; 85025; 93005; 99285; G0480

== ENCOUNTER 2018-06-02 17:29 | Inpatient (IN) | payer MEDICAID ==
[~2018-06-02] VITALS: Ht 182.9 cm; Wt 103.1 kg
[~2018-06-02 17:29] MED LIST changes: +HYDR25TA11 PO; +MULT-6 PO
[2018-06-02] MEDS ORDERED: ONDANSETRON 2MG/ML, 2ML IVPush ONE (18:30)
[2018-06-02] MEDS ORDERED: SODIUM CHLORIDE 0.9% 1,000ML IVBOLUS ONE (18:30)
[2018-06-02] MEDS ORDERED: LORazepam 2 MG/ML, 1ML IVPush ONE ×3 (18:30→21:00)
[2018-06-02] MEDS ORDERED: ONDANSETRON 2MG/ML, 2ML ONE (18:38)
[2018-06-02] MEDS ORDERED: LORazepam 2 MG/ML, 1ML ONE ×3 (18:39→20:53)
[2018-06-02 18:48] LABS: BASOPHILS # (AUTO) 0.01 x10^3/uL (0-0.1); BASOPHILS % (AUTO) 0 % (0-1); EOSINOPHILS % (AUTO) 0 % (1-7); LYMPHOCYTES # (AUTO) 0.97 x10^3/uL (1-3.4); LYMPHOCYTES % (AUTO) 28 % (22-44); MD NO; MEAN CORPUSCULAR HEMOGLOBIN 33.2 pg (27.5-34.5); MEAN CORPUSCULAR HGB CONC 34.4 g/dL (33.2-36.2); MEAN CORPUSCULAR VOLUME 96.6 fL (81-97); MONOCYTES # (AUTO) 0.34 x10^3/uL (0.2-0.8); MONOCYTES % (AUTO) 10 % (2-9); NEUTROPHILS # (AUTO) 2.12 x10^3/uL (1.8-6.8); NEUTROPHILS % (AUTO) 61 % (42-75); PLATELET COUNT 204 x10^3/uL (130-400); RED BLOOD COUNT 4.76 x10^6/uL (4.38-5.82); RED CELL DISTRIBUTION WIDTH 18.7 % (9.4-14.8)
[2018-06-02 18:55] LABS: ALANINE AMINOTRANSFERASE 249 U/L (12-78); ALBUMIN 4.4 g/dL (3.4-5.0); ANION GAP 20 mmol/L (5-15); CALCIUM 9.8 mg/dL (8.5-10.1); CHLORIDE 97 mmol/L (98-107)
[2018-06-02 18:57] LABS: ALKALINE PHOSPHATASE 66 U/L (45-117); BILIRUBIN,TOTAL 1.1 mg/dL (0.2-1.0); TOTAL PROTEIN 8.2 g/dL (6.4-8.2)
[2018-06-02 21:19] LABS: AMPHETAMINE SCREEN, URINE Negative (Negative); BARBITURATE SCREEN, URINE Negative (Negative); BENZODIAZEPINE SCREEN, URINE Positive (Negative); CANNABINOID SCREEN, URINE Negative (Negative); COCAINE SCREEN, URINE Negative (Negative); METHADONE SCREEN, URINE Negative (Negative); OPIATE SCREEN, URINE Negative (Negative)
[2018-06-02] MEDS ORDERED: LORazepam 2 MG/ML, 1ML IV PRN ×4 (21:30)
[2018-06-02] MEDS ORDERED: LABETALOL 5MG/ML, 20ML IVPush PRN (21:30)
[2018-06-02] MEDS: SODIUM CHLORIDE 0.9% 1,000 ML IV SCH (21:30)
[2018-06-02] MEDS ORDERED: ACETAMINOPHEN 325 MG TABLET PO PRN (21:30)
[2018-06-02] MEDS ORDERED: ENOXAPARIN 40 MG/0.4 ML SQ SCH (21:30)
[2018-06-02] MEDS ORDERED: ONDANSETRON 2MG/ML, 2ML IV PRN (21:30)
[2018-06-02] MEDS ORDERED: ENALAPRILAT 1.25 MG/ML, 2ML IVPush PRN (21:30)
[2018-06-02] MEDS ORDERED: POTASSIUM CHLORIDE 20 MEQ, MAGNESIUM SULFATE 1 GM, MVI ADULT 10 ML, THIAMINE 200 MG, FO... IV SCH (21:30)
[2018-06-02 22:33] VITALS: BP 146/95
[2018-06-02] MEDS: LORazepam 2 MG/ML, 1ML IV PRN (23:48)
[2018-06-03 01:14] VITALS: BP 145/94
[2018-06-03 05:02] LABS: BASOPHILS # (AUTO) 0.02 x10^3/uL (0-0.1); BASOPHILS % (AUTO) 1 % (0-1); EOSINOPHILS % (AUTO) 0 % (1-7); LYMPHOCYTES # (AUTO) 1.15 x10^3/uL (1-3.4); LYMPHOCYTES % (AUTO) 27 % (22-44); MD NO; MEAN CORPUSCULAR HEMOGLOBIN 32.9 pg (27.5-34.5); MEAN CORPUSCULAR HGB CONC 34.6 g/dL (33.2-36.2); MEAN CORPUSCULAR VOLUME 95.3 fL (81-97); MEAN PLATELET VOLUME 7.1 fL (7.4-10.4); MONOCYTES # (AUTO) 0.49 x10^3/uL (0.2-0.8); MONOCYTES % (AUTO) 12 % (2-9); NEUTROPHILS # (AUTO) 2.59 x10^3/uL (1.8-6.8); NEUTROPHILS % (AUTO) 61 % (42-75); PLATELET COUNT 158 x10^3/uL (130-400); RED BLOOD COUNT 4.43 x10^6/uL (4.38-5.82); RED CELL DISTRIBUTION WIDTH 18.8 % (9.4-14.8)
[2018-06-03 05:04] LABS: ALANINE AMINOTRANSFERASE 206 U/L (12-78); ANION GAP 10 mmol/L (5-15); CALCIUM 8.9 mg/dL (8.5-10.1); CHLORIDE 99 mmol/L (98-107)
[2018-06-03 05:07] LABS: ALKALINE PHOSPHATASE 61 U/L (45-117); BILIRUBIN,TOTAL 1.5 mg/dL (0.2-1.0); CREATININE 0.93 mg/dL (0.7-1.3); TOTAL PROTEIN 7.3 g/dL (6.4-8.2)
[2018-06-03 05:54] LABS: HEMOGLOBIN A1C 5.8 % (4.2-6.3)
[2018-06-03] MEDS: SODIUM CHLORIDE 0.9% 1,000 ML IV SCH ×3 (07:00→21:08)
[2018-06-03 07:36] VITALS: BP 147/96
[2018-06-03] MEDS: LORazepam 2 MG/ML, 1ML IV PRN (09:37)
[2018-06-03 12:45] VITALS: BP 144/90
[2018-06-03] MEDS ORDERED: OXCA300T3 PO (17:26)
[2018-06-03 20:32] VITALS: BP 136/91
[2018-06-03] MEDS ORDERED: TRAZODONE 100MG TABLET PO SCH (21:00)
[2018-06-04 01:20] VITALS: BP 158/107
[2018-06-04 02:13] VITALS: BP 145/92
[2018-06-04] MEDS: SODIUM CHLORIDE 0.9% 1,000 ML IV SCH (04:14)
[2018-06-04 06:22] LABS: CHLORIDE 103 mmol/L (98-107)
[2018-06-04 06:29] LABS: ALANINE AMINOTRANSFERASE 155 U/L (12-78); ALBUMIN 3.6 g/dL (3.4-5.0); ALKALINE PHOSPHATASE 54 U/L (45-117); ANION GAP 6 mmol/L (5-15); BILIRUBIN,TOTAL 1.9 mg/dL (0.2-1.0); CALCIUM 8.3 mg/dL (8.5-10.1); CREATININE 0.73 mg/dL (0.7-1.3); TOTAL PROTEIN 6.6 g/dL (6.4-8.2)
[2018-06-04 06:57] VITALS: BP 135/85
[2018-06-04] MEDS ORDERED: MELATONIN 5 MG TABLET PO PRN (07:00)
[2018-06-04 12:17] VITALS: BP 142/95
== END 2018-06-04 15:19 | disposition home or self-care (01) | DRG 392 ==
LOC: ED 18:03 → EDIP 21:41 → 4EST 23:09 → DCLOUNGE 06-04 14:58
PROVIDERS: ADMIT Family Medicine; ATTEND Family Medicine
DX: R11.2 Nausea with vomiting, unspecified (principal); F10.239 Alcohol dependence with withdrawal, unspecified; R17 Unspecified jaundice; G47.00 Insomnia, unspecified; J44.9 Chronic obstructive pulmonary disease, unspecified; R74.0 Nonspecific elevation of levels of transaminase and lactic acid dehydrogenase [LDH]; F32.9 Major depressive disorder, single episode, unspecified; R73.9 Hyperglycemia, unspecified; Y90.9 Presence of alcohol in blood, level not specified; I50.9 Heart failure, unspecified; I25.10 Atherosclerotic heart disease of native coronary artery without angina pectoris; Z82.0 Family history of epilepsy and other diseases of the nervous system; Z87.891 Personal history of nicotine dependence; Z91.018 Allergy to other foods; Z82.49 Family history of ischemic heart disease and other diseases of the circulatory system; Z83.3 Family history of diabetes mellitus
CPT/HCPCS: 36415; 80053; 80307; 83036; 83690; 83735; 84100; 85025; 96361; 96374; 96375; 96376; J2405; J3411; J3475; J3480; 92523-GN; J2060; J7030

== ENCOUNTER 2018-07-16 19:14 | Emergency (ER) | payer MEDICAID ==
[~2018-07-16] VITALS: Ht 182.9 cm; Wt 102.0 kg
[~2018-07-16 19:14] MED LIST changes: -ONDA4VIA4 PO; +ONDA4VIA8 PO; +OXCA300T3 PO
[2018-07-16] MEDS ORDERED: CHLORDIAZEPOXIDE 25 MG CAPSULE PO PRN (19:30)
[2018-07-16] MEDS ORDERED: ONDANSETRON ODT 4 MG PO ONE (19:30)
[2018-07-16] MEDS ORDERED: CHLORDIAZEPOXIDE 25 MG CAPSULE ONE (19:33)
[2018-07-16] MEDS ORDERED: ONDANSETRON ODT 4 MG ONE (19:34)
[2018-07-16 20:03] LABS: BASOPHILS # (AUTO) 0.02 x10^3/uL (0-0.1); BASOPHILS % (AUTO) 0 % (0-1); EOSINOPHILS % (AUTO) 0 % (1-7); LYMPHOCYTES # (AUTO) 1.49 x10^3/uL (1-3.4); LYMPHOCYTES % (AUTO) 18 % (22-44); MD NO; MEAN CORPUSCULAR HEMOGLOBIN 31.8 pg (27.5-34.5); MEAN CORPUSCULAR HGB CONC 34.2 g/dL (33.2-36.2); MEAN CORPUSCULAR VOLUME 93.1 fL (81-97); MEAN PLATELET VOLUME 8.1 fL (7.4-10.4); MONOCYTES # (AUTO) 0.62 x10^3/uL (0.2-0.8); MONOCYTES % (AUTO) 8 % (2-9); NEUTROPHILS % (AUTO) 74 % (42-75); PLATELET COUNT 184 x10^3/uL (130-400); RED BLOOD COUNT 4.74 x10^6/uL (4.38-5.82); RED CELL DISTRIBUTION WIDTH 15.4 % (9.4-14.8)
[2018-07-16 20:15] LABS: ALANINE AMINOTRANSFERASE 63 U/L (12-78); ANION GAP 11 mmol/L (5-15); CALCIUM 9.2 mg/dL (8.5-10.1); CHLORIDE 102 mmol/L (98-107); CREATININE 1.01 mg/dL (0.7-1.3)
[2018-07-16 20:17] LABS: ALKALINE PHOSPHATASE 51 U/L (45-117); BILIRUBIN,TOTAL 0.7 mg/dL (0.2-1.0); TOTAL PROTEIN 7.5 g/dL (6.4-8.2)
[2018-07-16 20:21] VITALS: BP 126/90
== END 2018-07-16 20:54 | disposition home or self-care (01) ==
LOC: ED 20:52
DX: R11.2 Nausea with vomiting, unspecified (principal); R10.84 Generalized abdominal pain; F10.20 Alcohol dependence, uncomplicated; F41.1 Generalized anxiety disorder; F32.9 Major depressive disorder, single episode, unspecified
CPT/HCPCS: 36415; 80053; 83690; 85025; 99284; Q0162

== ENCOUNTER 2018-07-24 19:09 | Emergency (ER) | payer MEDICAID ==
[~2018-07-24] VITALS: Ht 182.9 cm; Wt 100.0 kg
[2018-07-24] MEDS ORDERED: SODIUM CHLORIDE 0.9% 1,000 ML IV ONE (19:19)
[2018-07-24] MEDS ORDERED: SODIUM CHLORIDE 0.9% 1,000ML IVBOLUS ONE (19:30)
[2018-07-24] MEDS ORDERED: SODIUM CHLORIDE FLUSH 10ML SYR IVF ONE (19:30)
[2018-07-24 19:42] LABS: BASOPHILS # (AUTO) 0.03 x10^3/uL (0-0.1); BASOPHILS % (AUTO) 0 % (0-1); EOSINOPHILS % (AUTO) 0 % (1-7); LYMPHOCYTES # (AUTO) 1.52 x10^3/uL (1-3.4); LYMPHOCYTES % (AUTO) 23 % (22-44); MD NO; MEAN CORPUSCULAR HEMOGLOBIN 32.2 pg (27.5-34.5); MEAN CORPUSCULAR HGB CONC 34.5 g/dL (33.2-36.2); MEAN CORPUSCULAR VOLUME 93.3 fL (81-97); MEAN PLATELET VOLUME 7.7 fL (7.4-10.4); MONOCYTES # (AUTO) 0.62 x10^3/uL (0.2-0.8); MONOCYTES % (AUTO) 10 % (2-9); NEUTROPHILS # (AUTO) 4.37 x10^3/uL (1.8-6.8); NEUTROPHILS % (AUTO) 67 % (42-75); PLATELET COUNT 163 x10^3/uL (130-400); RED BLOOD COUNT 4.85 x10^6/uL (4.38-5.82); RED CELL DISTRIBUTION WIDTH 15.4 % (9.4-14.8)
[2018-07-24 19:47] LABS: ALANINE AMINOTRANSFERASE 45 U/L (12-78); ALBUMIN 4.1 g/dL (3.4-5.0); ANION GAP 13 mmol/L (5-15); CALCIUM 9.7 mg/dL (8.5-10.1); CHLORIDE 104 mmol/L (98-107); CREATININE 1.09 mg/dL (0.7-1.3)
[2018-07-24 19:49] LABS: ALKALINE PHOSPHATASE 49 U/L (45-117); BILIRUBIN,TOTAL 0.8 mg/dL (0.2-1.0); TOTAL PROTEIN 7.7 g/dL (6.4-8.2)
[2018-07-24 20:31] LABS: MICROSCOPIC INDICATED
[2018-07-24 20:59] LABS: CULTURE INDICATED? NO
[2018-07-24 21:01] VITALS: BP 136/70
[2018-07-24] MEDS ORDERED: LORazepam 2 MG/ML, 1ML ONE (21:45)
[2018-07-24] MEDS ORDERED: LORazepam 2 MG/ML, 1ML IVPush ONE (22:00)
== END 2018-07-24 22:39 | disposition home or self-care (01) ==
LOC: ED 21:22
DX: K29.20 Alcoholic gastritis without bleeding (principal); F10.239 Alcohol dependence with withdrawal, unspecified; R45.4 Irritability and anger; F41.1 Generalized anxiety disorder
CPT/HCPCS: 36415; 80053; 81001; 82140; 83690; 85025; 93005; 96374; 99285; J2060; J7030

== ENCOUNTER 2018-08-08 16:09 | Emergency (ER) | payer MEDICAID ==
[~2018-08-08] VITALS: Ht 182.9 cm; Wt 100.0 kg
[2018-08-08] MEDS ORDERED: ASPIRIN 81 MG TABLET CHEW PO ONE (16:30)
[2018-08-08 17:16] LABS: BASOPHILS # (AUTO) 0.01 x10^3/uL (0-0.1); BASOPHILS % (AUTO) 0 % (0-1); EOSINOPHILS % (AUTO) 0 % (1-7); LYMPHOCYTES % (AUTO) 25 % (22-44); MD NO; MEAN CORPUSCULAR HEMOGLOBIN 32.3 pg (27.5-34.5); MEAN CORPUSCULAR HGB CONC 34.6 g/dL (33.2-36.2); MEAN CORPUSCULAR VOLUME 93.4 fL (81-97); MEAN PLATELET VOLUME 7.1 fL (7.4-10.4); MONOCYTES # (AUTO) 0.22 x10^3/uL (0.2-0.8); MONOCYTES % (AUTO) 4 % (2-9); NEUTROPHILS # (AUTO) 4.06 x10^3/uL (1.8-6.8); NEUTROPHILS % (AUTO) 71 % (42-75); PLATELET COUNT 230 x10^3/uL (130-400); RED BLOOD COUNT 5.01 x10^6/uL (4.38-5.82); RED CELL DISTRIBUTION WIDTH 14.3 % (9.4-14.8)
[2018-08-08 17:23] LABS: ALBUMIN 3.9 g/dL (3.4-5.0); ANION GAP 18 mmol/L (5-15); CHLORIDE 99 mmol/L (98-107); CREATININE 0.75 mg/dL (0.7-1.3)
[2018-08-08 17:39] VITALS: BP 114/82
== END 2018-08-08 18:00 | disposition home or self-care (01) ==
LOC: ED 17:20
DX: R07.89 Other chest pain (principal); F17.200 Nicotine dependence, unspecified, uncomplicated; F32.9 Major depressive disorder, single episode, unspecified
CPT/HCPCS: 36415; 71045; 80048; 82040; 85025; 93005; 99285

== ENCOUNTER 2018-09-06 09:01 | Emergency (ER) | payer MEDICAID ==
[~2018-09-06] VITALS: Ht 182.9 cm; Wt 102.0 kg
[2018-09-06] MEDS ORDERED: FAMOTIDINE 20 MG/2 ML IVP ONE (09:30)
[2018-09-06] MEDS ORDERED: ONDANSETRON 2MG/ML, 2ML IVPush ONE (09:30)
[2018-09-06 09:31] LABS: BASOPHILS # (AUTO) 0.02 x10^3/uL (0-0.1); BASOPHILS % (AUTO) 0 % (0-1); EOSINOPHILS # (AUTO) 0.01 x10^3/uL (0-0.4); EOSINOPHILS % (AUTO) 0 % (1-7); LYMPHOCYTES # (AUTO) 1.44 x10^3/uL (1-3.4); LYMPHOCYTES % (AUTO) 28 % (22-44); MD NO; MEAN CORPUSCULAR HEMOGLOBIN 31.6 pg (27.5-34.5); MEAN CORPUSCULAR HGB CONC 34.1 g/dL (33.2-36.2); MEAN CORPUSCULAR VOLUME 92.6 fL (81-97); MEAN PLATELET VOLUME 7.6 fL (7.4-10.4); MONOCYTES # (AUTO) 0.34 x10^3/uL (0.2-0.8); MONOCYTES % (AUTO) 7 % (2-9); NEUTROPHILS # (AUTO) 3.31 x10^3/uL (1.8-6.8); NEUTROPHILS % (AUTO) 65 % (42-75); PLATELET COUNT 188 x10^3/uL (130-400); RED BLOOD COUNT 4.74 x10^6/uL (4.38-5.82); RED CELL DISTRIBUTION WIDTH 14.9 % (9.4-14.8)
[2018-09-06] MEDS ORDERED: ONDANSETRON 2MG/ML, 2ML ONE (09:41)
[2018-09-06] MEDS ORDERED: FAMOTIDINE 20 MG/2 ML ONE (09:41)
[2018-09-06 09:43] LABS: ALANINE AMINOTRANSFERASE 49 U/L (12-78); ANION GAP 8 mmol/L (5-15); CALCIUM 9.9 mg/dL (8.5-10.1); CHLORIDE 102 mmol/L (98-107); CREATININE 0.88 mg/dL (0.7-1.3)
[2018-09-06 09:45] LABS: ALKALINE PHOSPHATASE 52 U/L (45-117); BILIRUBIN,TOTAL 1.3 mg/dL (0.2-1.0); TOTAL PROTEIN 7.2 g/dL (6.4-8.2)
[2018-09-06 12:18] VITALS: BP 142/97
== END 2018-09-06 12:28 | disposition home or self-care (01) ==
LOC: ED 09:09
DX: R11.2 Nausea with vomiting, unspecified (principal); R10.84 Generalized abdominal pain; R19.7 Diarrhea, unspecified; R42 Dizziness and giddiness
CPT/HCPCS: 36415; 80053; 83690; 85025; 93005; 96374; 96375; 99284; J2405; J3490

== ENCOUNTER 2019-01-12 16:40 | Emergency (ER) | payer MEDICAID ==
[~2019-01-12] VITALS: Ht 182.9 cm; Wt 100.0 kg
[~2019-01-12 16:40] MED LIST changes: +SERT100T32 PO; -SERT100T5 PO; +SERT50TA28 PO; -SERT50TA5 PO; -THIA50TA PO; +THIA50TA4 PO
[2019-01-12] MEDS ORDERED: DIAZEPAM 5 MG/ML, 2ML IV ONE (17:00)
[2019-01-12] MEDS ORDERED: SODIUM CHLORIDE FLUSH 10ML SYR IVF ONE (17:00)
[2019-01-12] MEDS ORDERED: LORazepam 2 MG/ML, 1ML IVPush ONE (17:00)
--- NOTE | 2019-01-12 17:15 | NUR ---
pt presents to ED via ambulance with c/o dizziness, nausea and left upper/lower abd pain starting this am. 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 pt states he had an etoh binge "a couple of days ago" and has hx pancreatitis. pt placed on all monitors. EKG completed by edt. pt is a&ox 4, calm and cooperative. call light in reach.
[2019-01-12 17:24] LABS: ALANINE AMINOTRANSFERASE 50 U/L (12-78); ALBUMIN 4.4 g/dL (3.4-5.0); ANION GAP 8 mmol/L (5-15); CALCIUM 8.9 mg/dL (8.5-10.1); CHLORIDE 101 mmol/L (98-107); CREATININE 1.17 mg/dL (0.7-1.3)
[2019-01-12] MEDS ORDERED: LORazepam 2 MG/ML, 1ML ONE (17:24)
[2019-01-12 17:27] LABS: ALKALINE PHOSPHATASE 72 U/L (45-117); BILIRUBIN,TOTAL 1.7 mg/dL (0.2-1.0); TOTAL PROTEIN 7.4 g/dL (6.4-8.2)
--- NOTE | 2019-01-12 17:31 | NUR ---
pt medicated per emar, tolerated well. pt instructed to provide clean catch ua, urinal provided at bedside. pt demonstrates understanding.
[2019-01-12 17:52] LABS: MICROSCOPIC AUTO
--- NOTE | 2019-01-12 17:54 | NUR ---
urine collected and sent, results pending. lab to redraw d/t hemolyzed sample. pt a&o, resps even and unlabored, nadn at this time.
[2019-01-12 18:00] LABS: CULTURE INDICATED? NO
[2019-01-12 18:10] LABS: BASOPHILS # (AUTO) 0.03 x10^3/uL (0-0.1); BASOPHILS % (AUTO) 0 % (0-1); EOSINOPHILS % (AUTO) 0 % (1-7); LYMPHOCYTES % (AUTO) 9 % (22-44); MD NO; MEAN CORPUSCULAR HEMOGLOBIN 30.8 pg (27.5-34.5); MEAN CORPUSCULAR HGB CONC 34.1 g/dL (33.2-36.2); MEAN CORPUSCULAR VOLUME 90.3 fL (81-97); MONOCYTES # (AUTO) 0.89 x10^3/uL (0.2-0.8); MONOCYTES % (AUTO) 8 % (2-9); NEUTROPHILS # (AUTO) 8.94 x10^3/uL (1.8-6.8); NEUTROPHILS % (AUTO) 82 % (42-75); PLATELET COUNT 160 x10^3/uL (130-400); RED BLOOD COUNT 4.74 x10^6/uL (4.38-5.82); RED CELL DISTRIBUTION WIDTH 14.9 % (9.4-14.8)
[2019-01-12 18:40] VITALS: BP 121/74
--- NOTE | 2019-01-12 18:51 | NUR ---
pt given dc instructions, educated regarding pcp f/u for blood glucose monitoring. pt instructed not to drive, pt states he is calling cab home.pt is a&ox4, resps even and unlabored, no n/v at dc. pt amb to dc desk with steady gait, nadn at dc. all questions answered.
== END 2019-01-12 18:52 | disposition home or self-care (01) ==
LOC: ED 18:01
DX: F10.239 Alcohol dependence with withdrawal, unspecified (principal); R10.84 Generalized abdominal pain; R73.9 Hyperglycemia, unspecified; F32.9 Major depressive disorder, single episode, unspecified; F41.1 Generalized anxiety disorder; Y90.9 Presence of alcohol in blood, level not specified
CPT/HCPCS: 36415; 80053; 81001; 83690; 85025; 93005; 96374; 99284; J2060

== ENCOUNTER 2019-03-08 21:24 | Emergency (ER) | payer MEDICAID ==
[~2019-03-08] VITALS: Ht 182.9 cm; Wt 100.0 kg
[~2019-03-08 21:24] MED LIST changes: +ONDA4VIA60 PO; -ONDA4VIA8 PO
--- NOTE | 2019-03-08 21:35 | NUR ---
Dr. Pozo at bedside to evaluate pt.
--- NOTE | 2019-03-08 21:48 | NUR ---
Lab at bedside.
[2019-03-08] MEDS ORDERED: MAALOX/HYOSCYAMINE/LIDOCAINE 45 ML BTL ONE (21:55)
[2019-03-08] MEDS ORDERED: ONDANSETRON ODT 4 MG ONE (21:55)
[2019-03-08 21:57] LABS: BASOPHILS # (AUTO) 0.01 x10^3/uL (0-0.1); BASOPHILS % (AUTO) 0 % (0-1); EOSINOPHILS % (AUTO) 0 % (1-7); LYMPHOCYTES # (AUTO) 0.72 x10^3/uL (1-3.4); LYMPHOCYTES % (AUTO) 8 % (22-44); MD NO; MEAN CORPUSCULAR HEMOGLOBIN 32.2 pg (27.5-34.5); MEAN CORPUSCULAR VOLUME 94.6 fL (81-97); MONOCYTES # (AUTO) 0.54 x10^3/uL (0.2-0.8); MONOCYTES % (AUTO) 6 % (2-9); NEUTROPHILS # (AUTO) 7.84 x10^3/uL (1.8-6.8); NEUTROPHILS % (AUTO) 86 % (42-75); PLATELET COUNT 169 x10^3/uL (130-400); RED BLOOD COUNT 5.15 x10^6/uL (4.38-5.82)
--- NOTE | 2019-03-08 21:58 | NUR ---
Pt medicated per MAR. SBAR report given to Dustin maradiaga RN.
[2019-03-08] MEDS ORDERED: ONDANSETRON 2MG/ML, 2ML ONE (21:59)
[2019-03-08] MEDS ORDERED: MAALOX/HYOSCYAMINE/LIDOCAINE 45 ML BTL PO ONE (22:00)
[2019-03-08] MEDS ORDERED: ONDANSETRON 2MG/ML, 2ML IVPush ONE (22:00)
[2019-03-08 22:10] LABS: ALANINE AMINOTRANSFERASE 39 U/L (12-78); ALBUMIN 4.6 g/dL (3.4-5.0); ANION GAP 18 mmol/L (5-15); CALCIUM 9.9 mg/dL (8.5-10.1); CHLORIDE 91 mmol/L (98-107); CREATININE 1.43 mg/dL (0.7-1.3)
[2019-03-08 22:13] LABS: ALKALINE PHOSPHATASE 55 U/L (45-117); BILIRUBIN,TOTAL 1.9 mg/dL (0.2-1.0)
[2019-03-08 22:32] VITALS: BP 124/84
[2019-03-08] MEDS ORDERED: LORazepam 2 MG/ML, 1ML ONE (22:38)
--- NOTE | 2019-03-08 22:42 | NUR ---
Pt medicated per MAR.
[2019-03-08] MEDS ORDERED: LORazepam 2 MG/ML, 1ML IVPush ONE (23:00)
--- NOTE | 2019-03-08 23:33 | NUR ---
Patient/Caregiver given discharge instructions and they have confirmed that they understand the instructions. Patient ambulatory with steady gait.
== END 2019-03-08 23:34 | disposition home or self-care (01) ==
LOC: ED 21:38
DX: K29.20 Alcoholic gastritis without bleeding (principal); F10.129 Alcohol abuse with intoxication, unspecified; R42 Dizziness and giddiness
CPT/HCPCS: 36415; 80053; 80307; 83690; 85025; 93005; 96374; 96375; 99284; J2060; J2405

== ENCOUNTER 2019-04-17 20:00 | Emergency (ER) | payer MEDICAID ==
[~2019-04-17] VITALS: Ht 182.9 cm; Wt 99.7 kg
--- NOTE | 2019-04-17 20:12 | NUR ---
PT HAS BEEN ADMITTED HERE IN PAST FOR ETOH WITHDRAWL, HISTORY DEPRESSION, AND NOTED IN PREVIOUS DISCHARGE SUMMARY "COMPLICATED ETOH WITHDRAWL". PT STATES HE HAS A HX OF PTSD.
[2019-04-17] MEDS ORDERED: TRAZ-137 PO (20:14)
[2019-04-17] MEDS ORDERED: ONDANSETRON 2MG/ML, 2ML IVPush ONE (21:00)
[2019-04-17] MEDS ORDERED: PANTOPRAZOLE 40 MG IV IVPush ONE (21:00)
[2019-04-17 21:12] LABS: BASOPHILS # (AUTO) 0.02 x10^3/uL (0-0.1); BASOPHILS % (AUTO) 0 % (0-1); EOSINOPHILS % (AUTO) 0 % (1-7); LYMPHOCYTES # (AUTO) 1.15 x10^3/uL (1-3.4); LYMPHOCYTES % (AUTO) 23 % (22-44); MD NO; MEAN CORPUSCULAR HEMOGLOBIN 32.2 pg (27.5-34.5); MEAN CORPUSCULAR HGB CONC 33.4 g/dL (33.2-36.2); MEAN CORPUSCULAR VOLUME 96.3 fL (81-97); MEAN PLATELET VOLUME 6.6 fL (7.4-10.4); MONOCYTES # (AUTO) 0.21 x10^3/uL (0.2-0.8); MONOCYTES % (AUTO) 4 % (2-9); NEUTROPHILS # (AUTO) 3.61 x10^3/uL (1.8-6.8); NEUTROPHILS % (AUTO) 72 % (42-75); PLATELET COUNT 258 x10^3/uL (130-400); RED BLOOD COUNT 4.99 x10^6/uL (4.38-5.82); RED CELL DISTRIBUTION WIDTH 14.5 % (9.4-14.8)
[2019-04-17 21:25] LABS: ALANINE AMINOTRANSFERASE 36 U/L (12-78); ALBUMIN 3.8 g/dL (3.4-5.0); ANION GAP 13 mmol/L (5-15); CALCIUM 8.3 mg/dL (8.5-10.1); CHLORIDE 100 mmol/L (98-107); CREATININE 0.98 mg/dL (0.7-1.3)
[2019-04-17] MEDS ORDERED: ONDANSETRON 2MG/ML, 2ML ONE (21:26)
[2019-04-17] MEDS ORDERED: PANTOPRAZOLE 40 MG IV ONE (21:26)
[2019-04-17 21:30] LABS: ALKALINE PHOSPHATASE 69 U/L (45-117); BILIRUBIN,TOTAL 0.5 mg/dL (0.2-1.0); TOTAL PROTEIN 7.9 g/dL (6.4-8.2); TROPONIN I < 0.015 ng/mL (0.000-0.045)
[2019-04-17] MEDS ORDERED: ONDANSETRON ODT 4 MG ONE (21:34)
--- NOTE | 2019-04-17 21:38 | NUR ---
NO N/V SINCE ARRIVAL TO ED. PT STATES HE STOPPED DRINKING EARLIER IN WEEK. PT UPDATED ON LAB WORK, INCLUDING ETOH LEVEL. PT'S IV TAKEN OUT IN LOBBY. ZOFRAN GIVEN ODT AT THIS TIME. VSS/UPDATED IN COMPUTER.
[2019-04-17] MEDS ORDERED: ONDANSETRON ODT 4 MG PO ONE (22:00)
--- NOTE | 2019-04-17 22:13 | NUR ---
REPORT TO FINN BLOOD, TRANSFER OF CARE AT THIS TIME.
[2019-04-17] MEDS ORDERED: MAALOX/HYOSCYAMINE/LIDOCAINE 45 ML BTL PO ONE (22:30)
[2019-04-17] MEDS ORDERED: PROMETHAZINE 25 MG/ML, 1ML IM ONE (22:30)
[2019-04-17] MEDS ORDERED: PROMETHAZINE 25 MG/ML, 1ML ONE (22:37)
[2019-04-17] MEDS ORDERED: MAALOX/HYOSCYAMINE/LIDOCAINE 45 ML BTL ONE (22:37)
[2019-04-17 22:41] VITALS: BP 147/95
--- NOTE | 2019-04-17 22:50 | NUR ---
PT REPORTS HAVING HAD PHENERGAN AND GI COCKTAIL IN THE PAST WO HX OF ADVERSE REACTION. DC EDUCATION PROVIDED, PT DEMONSTRATES UNDERSTANDING. PT AMBULATED STEADILY TO DC WITH RN. PT TO TAXI HOME
== END 2019-04-17 22:52 | disposition home or self-care (01) ==
LOC: ED 21:44
DX: K29.20 Alcoholic gastritis without bleeding (principal); F10.220 Alcohol dependence with intoxication, uncomplicated; Z72.9 Problem related to lifestyle, unspecified; Z91.14 Patient's other noncompliance with medication regimen; Y90.9 Presence of alcohol in blood, level not specified
CPT/HCPCS: 36415; 80053; 80307; 83690; 84484; 85025; 96372; 99283; J2550; Q0162

== ENCOUNTER 2019-10-02 15:28 | Emergency (ER) | payer MEDICAID ==
[~2019-10-02] VITALS: Ht 182.9 cm; Wt 95.0 kg
[~2019-10-02 15:28] MED LIST changes: +ACAM333T7 PO; +HYDR-826 PO; -HYDR25TA11 PO; +PANT40TA5 PO
--- NOTE | 2019-10-02 15:48 | NUR ---
BIB [facility], PT HAD BINGE DRINKING SINCE FRIDAY 09/28. PT NOW NAUSEATED AND DIZZY. PT REPORTS DRINKING 1L VODKA PER DAY. PT DENIES VOMITTING, CP, SOB. PT TO CARD MONITOR, BP, CONT PULSE OX
[2019-10-02 16:40] VITALS: BP 119/66
--- NOTE | 2019-10-02 16:40 | NUR ---
ERMD IN TO EVAL PT ORDERS RECIEVED.
[2019-10-02 17:04] LABS: BASOPHILS # (AUTO) 0.02 x10^3/uL (0-0.1); BASOPHILS % (AUTO) 0 % (0-1); EOSINOPHILS # (AUTO) 0.07 x10^3/uL (0-0.4); EOSINOPHILS % (AUTO) 1 % (1-7); LYMPHOCYTES # (AUTO) 1.04 x10^3/uL (1-3.4); LYMPHOCYTES % (AUTO) 15 % (22-44); MD NO; MEAN CORPUSCULAR HEMOGLOBIN 32.3 pg (27.5-34.5); MEAN CORPUSCULAR HGB CONC 33.5 g/dL (33.2-36.2); MEAN CORPUSCULAR VOLUME 96.4 fL (81-97); MEAN PLATELET VOLUME 7.7 fL (7.4-10.4); MONOCYTES # (AUTO) 0.33 x10^3/uL (0.2-0.8); MONOCYTES % (AUTO) 5 % (2-9); NEUTROPHILS % (AUTO) 79 % (42-75); PLATELET COUNT 169 x10^3/uL (130-400); RED BLOOD COUNT 4.77 x10^6/uL (4.38-5.82); RED CELL DISTRIBUTION WIDTH 13.7 % (9.4-14.8)
[2019-10-02 17:15] LABS: ALBUMIN 4.1 g/dL (3.4-5.0); ANION GAP 16 mmol/L (5-15); CALCIUM 8.3 mg/dL (8.5-10.1); CHLORIDE 102 mmol/L (98-107)
[2019-10-02 17:21] LABS: ALANINE AMINOTRANSFERASE 104 U/L (12-78); ALKALINE PHOSPHATASE 56 U/L (45-117); BILIRUBIN,TOTAL 1.3 mg/dL (0.2-1.0); CREATININE 0.86 mg/dL (0.7-1.3); TOTAL PROTEIN 7.1 g/dL (6.4-8.2); TROPONIN I < 0.015 ng/mL (0.000-0.045)
[2019-10-03] MEDS ORDERED: MELA5TAB14 PO (00:28)
[2019-10-03] MEDS ORDERED: OXCARBAZEPINE (00:28)
== END 2019-10-02 18:04 | disposition home or self-care (01) ==
LOC: ED 17:45
DX: R42 Dizziness and giddiness (principal); F10.120 Alcohol abuse with intoxication, uncomplicated; Y90.9 Presence of alcohol in blood, level not specified
CPT/HCPCS: 36415; 71045; 80053; 83880; 84484; 85025; 93005; 99284

== ENCOUNTER 2019-10-02 23:19 | Emergency (ER) | payer MEDICAID ==
[~2019-10-02] VITALS: Ht 182.9 cm; Wt 98.5 kg
[2019-10-03] MEDS ORDERED: LORazepam 1MG TABLET PO ONE
[2019-10-03] MEDS ORDERED: OXCARBAZEPINE (00:28)
[2019-10-03] MEDS ORDERED: MELA5TAB14 PO (00:28)
[2019-10-03 00:30] VITALS: BP 114/76
[2019-10-03] MEDS ORDERED: LORazepam 1MG TABLET ONE (00:33)
--- NOTE | 2019-10-03 01:01 | NUR ---
PT MEDICATED FOR ANXIETY PER EMAR. PT ABLE TO AMBULATE STEADILY IN HALLWAY. PT WALKED TO BATHROOM ON OWN. STEADY GAIT. ERP AWARE.
== END 2019-10-03 01:23 | disposition home or self-care (01) ==
LOC: ED 10-03 00:46
DX: F41.9 Anxiety disorder, unspecified (principal); F10.10 Alcohol abuse, uncomplicated; R42 Dizziness and giddiness; Y90.0 Blood alcohol level of less than 20 mg/100 ml
CPT/HCPCS: 99283

== ENCOUNTER 2019-10-18 05:30 | Emergency (ER) | payer MEDICAID ==
[~2019-10-18] VITALS: Ht 182.9 cm; Wt 102.6 kg
[~2019-10-18 05:30] MED LIST changes: +MELA5TAB14 PO; +OXCARBAZEPINE
--- NOTE | 2019-10-18 05:37 | NUR ---
38Y M PT BIB EMS FROM HOME FOR ETOH DETOX, USUALLY DRINKS 1 HANDLE A DAY OF VODKA, LAST DRINK WAS YESTERDAY AM. PT STS HE IS IN AN INTENSE PROGRAM FOR ETOH SOBRIETY, HOWEVER STS DOES NOT THINK IT IS WORKING SINCE HE KEEPS RELAPSING AFTER ATTENDING. SCARS NOTED ON PT WRISTS BILAT. PT STS "BEFORE YOU ASK NO I DON'T WANT TO KILL MYSELF AND I WASN'T TRYING TO HURT MYSELF, ITS JUST JAINISM." PT DENIES ALL SI/HI. PT CONNECTED TO ALL MONITORING VSS, NADN.
--- NOTE | 2019-10-18 05:40 | NUR ---
MD AT BEDSIDE TO ASSESS PT
[2019-10-18] MEDS ORDERED: LORazepam 1MG TABLET ONE (05:56)
--- NOTE | 2019-10-18 05:58 | NUR ---
PT MEDICATED PER MAR
[2019-10-18] MEDS ORDERED: LORazepam 1MG TABLET PO ONE (06:00)
[2019-10-18 06:32] LABS: BASOPHILS # (AUTO) 0.04 x10^3/uL (0-0.1); BASOPHILS % (AUTO) 1 % (0-1); EOSINOPHILS % (AUTO) 0 % (1-7); LYMPHOCYTES # (AUTO) 2.12 x10^3/uL (1-3.4); LYMPHOCYTES % (AUTO) 33 % (22-44); MD NO; MEAN CORPUSCULAR HEMOGLOBIN 31.9 pg (27.5-34.5); MEAN CORPUSCULAR HGB CONC 33.8 g/dL (33.2-36.2); MEAN CORPUSCULAR VOLUME 94.3 fL (81-97); MEAN PLATELET VOLUME 7.4 fL (7.4-10.4); MONOCYTES # (AUTO) 0.44 x10^3/uL (0.2-0.8); MONOCYTES % (AUTO) 7 % (2-9); NEUTROPHILS # (AUTO) 3.79 x10^3/uL (1.8-6.8); NEUTROPHILS % (AUTO) 59 % (42-75); PLATELET COUNT 244 x10^3/uL (130-400); RED BLOOD COUNT 4.74 x10^6/uL (4.38-5.82); RED CELL DISTRIBUTION WIDTH 14.1 % (9.4-14.8)
[2019-10-18 06:36] LABS: ALANINE AMINOTRANSFERASE 91 U/L (12-78); ALBUMIN 4.3 g/dL (3.4-5.0); ANION GAP 16 mmol/L (5-15); CALCIUM 8.9 mg/dL (8.5-10.1); CHLORIDE 100 mmol/L (98-107); CREATININE 0.86 mg/dL (0.7-1.3)
[2019-10-18 06:38] LABS: ALKALINE PHOSPHATASE 52 U/L (45-117); BILIRUBIN,TOTAL 1.2 mg/dL (0.2-1.0); TOTAL PROTEIN 7.3 g/dL (6.4-8.2)
--- NOTE | 2019-10-18 07:05 | NUR ---
RECEIVED REPORT FROM STEPH BLOOD, PLAN OF CARE DISCUSSED. PT AWAKE WATCHING TV. STATES "I FEEL TERRIBLE". MEAL ORDERED. PT VERBALIZED NO NEEDS AT THIS TIME
--- NOTE | 2019-10-18 08:48 | NUR ---
REPORT TO EMEKA BLOOD, PLAN OF CARE DISCUSSED
--- NOTE | 2019-10-18 09:38 | NUR ---
PT ALERT, EATING BREAKFAST. NO NEEDS AT THIS TIME.
--- NOTE | 2019-10-18 10:11 | NUR ---
PT AMBULATED TO BATHROOM W STEADY GATE . PT STATES " IM NOT DOING VERY WELL, IM REALLY SWEATY"
[2019-10-18 10:12] VITALS: BP 128/83
--- NOTE | 2019-10-18 11:14 | NUR ---
Patient/Caregiver given discharge instructions and they have confirmed that they understand the instructions. Patient ambulatory with steady gait.
== END 2019-10-18 11:16 | disposition home or self-care (01) ==
LOC: ED 05:59
DX: F10.10 Alcohol abuse, uncomplicated (principal); Y90.0 Blood alcohol level of less than 20 mg/100 ml
CPT/HCPCS: 36415; 80053; 83690; 85025; 99283

== ENCOUNTER 2019-12-11 15:21 | Emergency (ER) | payer MEDICAID ==
[~2019-12-11] VITALS: Ht 182.9 cm; Wt 100.0 kg
[~2019-12-11 15:21] MED LIST changes: +HYDR-2995 PO; -HYDR10TA4 PO; -TRAZ-137 PO; +TRAZ-175 PO
--- NOTE | 2019-12-11 15:30 | NUR ---
SURAJ. REPORT RECEIVED FROM EMS. +ETOH. AFTER EMS LEFT, PT STATES "I PUT SOMETHING IN RECTUM AND I DON'T REMEMBER WHAT IT IS. I HAVE ABD AND GROIN PAIN NOW" PT'S AOX4. RESPS EVEN AND UNLABORED. BP/SPO2 MONITORS IN PLACE. CALL LIGHT WITHIN REACH.
[2019-12-11 16:18] LABS: BASOPHILS # (AUTO) 0.03 x10^3/uL (0-0.1); BASOPHILS % (AUTO) 1 % (0-1); EOSINOPHILS # (AUTO) 0.03 x10^3/uL (0-0.4); EOSINOPHILS % (AUTO) 1 % (1-7); LYMPHOCYTES # (AUTO) 1.65 x10^3/uL (1-3.4); LYMPHOCYTES % (AUTO) 33 % (22-44); MD NO; MEAN CORPUSCULAR HEMOGLOBIN 31.6 pg (27.5-34.5); MEAN CORPUSCULAR HGB CONC 34.2 g/dL (33.2-36.2); MEAN CORPUSCULAR VOLUME 92.2 fL (81-97); MEAN PLATELET VOLUME 6.8 fL (7.4-10.4); MONOCYTES # (AUTO) 0.23 x10^3/uL (0.2-0.8); MONOCYTES % (AUTO) 5 % (2-9); NEUTROPHILS # (AUTO) 3.03 x10^3/uL (1.8-6.8); NEUTROPHILS % (AUTO) 61 % (42-75); PLATELET COUNT 238 x10^3/uL (130-400); RED BLOOD COUNT 5.11 x10^6/uL (4.38-5.82); RED CELL DISTRIBUTION WIDTH 15.2 % (9.4-14.8)
--- NOTE | 2019-12-11 16:20 | NUR ---
PT BACK TO ROOM FROM XRAY AT THIS TIME.
[2019-12-11 16:31] LABS: ALANINE AMINOTRANSFERASE 82 U/L (12-78); ALBUMIN 4.2 g/dL (3.4-5.0); ANION GAP 16 mmol/L (5-15); CALCIUM 8.3 mg/dL (8.5-10.1); CHLORIDE 103 mmol/L (98-107); CREATININE 0.97 mg/dL (0.7-1.3)
[2019-12-11 16:36] LABS: ALKALINE PHOSPHATASE 57 U/L (45-117); BILIRUBIN,TOTAL 0.5 mg/dL (0.2-1.0); TOTAL PROTEIN 7.2 g/dL (6.4-8.2)
--- NOTE | 2019-12-11 17:12 | NUR ---
pt resting in [facility]. pt's aox4. resps even and unlabored. bp/spo2 monitors in place. call light within reach.
--- NOTE | 2019-12-11 17:40 | NUR ---
pt in t1 at this time. ready for sedation. edmd notified.
--- NOTE | 2019-12-11 17:40 | NUR ---
Tiffanie unger in [facility] - 12/11/19 at 1741 by STEVE pt andronak signed
[2019-12-11] MEDS ORDERED: PROPOFOL 10 MG/ML, 20ML ONE ×2 (17:41→17:51)
--- NOTE | 2019-12-11 17:45 | NUR ---
pt and edmd signed on consent form at this time. pt verbally understanding regarding procedure.
--- NOTE | 2019-12-11 18:11 | NUR ---
pt back to baseline. xray in room at this time.
--- NOTE | 2019-12-11 18:11 | NUR ---
moderate sedation and rectal foreign body removal done at bedside by dr jimenes. see paper chart.
--- NOTE | 2019-12-11 19:03 | NUR ---
REPORT OF PT FROM CHERIE AND ASSUMING CARE OF PT AT THIS TIME.
--- NOTE | 2019-12-11 19:20 | NUR ---
PT SLEEPING IN [facility] AT THIS TIME; DIGNA. PT PROCEDURAL SEDATION PACKET WAS NOT FULLY COMPLETED DURING DAY SHIFT BY PHYSICIAN. AUTOMOTIVE PRODUCT SPECIALIST SHAQUILLE AND HEALTH UNIT COORDINATOR REANNA NOTIFIED. CHART TO BE PLACED IN DR. FITZPATRICK'S MAILBOX FOR FURTHER COMPLETION PER INSTRUCTIONS FROM [employer]. PT HAS CALL LIGHT WITHIN REACH AT THIS TIME.
--- NOTE | 2019-12-11 21:49 | NUR ---
PT AMBULATES TO RESTROOM AT THIS TIME WITH STEADY GAIT. PT IS ALERT AND ORIENTED X 4 AND EXPRESSES DESIRE TO GO HOME AT THIS TIME. ERP NOTIFIED.
--- NOTE | 2019-12-11 22:14 | NUR ---
PT D/C WITH D/C SUMMARY. PT IS AMBULATORY AND ALERT AND ORIENTED PRIOR TO D/C AND WALKS TO REGISTRATION DESK WITH A STEADY GAIT. PT PROPERLY DRESSED FOR OUTSIDE AND PROVIDED WITH TAXI VOUCHER TO HOME FOR SAFE D/C HOME. TAXI PHONED FROM [facility] ED. PT DENIES ANY OTHER NEEDS PERTAINING TO THIS VISIT.
[2019-12-11 22:15] VITALS: BP 129/79
== END 2019-12-11 22:17 | disposition home or self-care (01) ==
LOC: ED 21:45
DX: T18.5XXA Foreign body in anus and rectum, initial encounter (principal); F10.229 Alcohol dependence with intoxication, unspecified; Y90.9 Presence of alcohol in blood, level not specified
CPT/HCPCS: 36415; 74021; 80053; 80307; 85025; 99285

== ENCOUNTER 2019-12-29 02:33 | Emergency (ER) | payer MEDICAID ==
[~2019-12-29] VITALS: Ht 175.3 cm; Wt 100.0 kg
[2019-12-29 02:53] LABS: BASOPHILS # (AUTO) 0.04 x10^3/uL (0-0.1); BASOPHILS % (AUTO) 1 % (0-1); EOSINOPHILS % (AUTO) 0 % (1-7); LYMPHOCYTES # (AUTO) 1.74 x10^3/uL (1-3.4); LYMPHOCYTES % (AUTO) 31 % (22-44); MD NO; MEAN CORPUSCULAR HEMOGLOBIN 31.4 pg (27.5-34.5); MEAN CORPUSCULAR HGB CONC 34.1 g/dL (33.2-36.2); MEAN CORPUSCULAR VOLUME 92.1 fL (81-97); MEAN PLATELET VOLUME 7.2 fL (7.4-10.4); MONOCYTES # (AUTO) 0.25 x10^3/uL (0.2-0.8); MONOCYTES % (AUTO) 4 % (2-9); NEUTROPHILS # (AUTO) 3.61 x10^3/uL (1.8-6.8); NEUTROPHILS % (AUTO) 64 % (42-75); PLATELET COUNT 233 x10^3/uL (130-400); RED BLOOD COUNT 5.37 x10^6/uL (4.38-5.82); RED CELL DISTRIBUTION WIDTH 15.1 % (9.4-14.8)
[2019-12-29 03:06] LABS: ALANINE AMINOTRANSFERASE 51 U/L (12-78); ALBUMIN 4.2 g/dL (3.4-5.0); ANION GAP 15 mmol/L (5-15); CALCIUM 8.3 mg/dL (8.5-10.1); CHLORIDE 102 mmol/L (98-107); CREATININE 0.99 mg/dL (0.7-1.3)
[2019-12-29 03:08] LABS: ALKALINE PHOSPHATASE 57 U/L (45-117); BILIRUBIN,TOTAL 0.5 mg/dL (0.2-1.0); TOTAL PROTEIN 7.5 g/dL (6.4-8.2)
--- NOTE | 2019-12-29 04:15 | NUR ---
PT BIB [facility] FOR ACUTE ETOH INTOXICATION. PT REPORTS HISTORY OF ETOH ABUSE AND PTSD. UPON ARRIVAL TO [facility] ED, PT VSS. PT HAS CALL LIGHT WITHIN REACH. PT CHANGED INTO GOWN AND IS IN GURNEY. AWAITING ERP AT THIS TIME.
--- NOTE | 2019-12-29 05:31 | NUR ---
PT ASLEEP IN [facility] AT THIS TIME; NADN. PT CONTINUES TO RIP VS MACHINES AND CARDIAC MONITORS OFF. WILL CONTINUE TO MONITOR PT.
--- NOTE | 2019-12-29 06:09 | NUR ---
PT ASLEEP IN [facility] AT THIS TIME; WALTER. CALL LIGHT IS WIHIN REACH OF PT
--- NOTE | 2019-12-29 06:56 | NUR ---
Received report from JEREMI Lebron.
--- NOTE | 2019-12-29 07:49 | NUR ---
PT RESTING QUIETLY ON GURNEY, TALKING TO RN ABOUT HX. PT CALM AND COOPERATIVE, DISCUSSING W/ RN NECESSARY LIFESTYLE CHANGES. PT PROVIDED W/ WATER AND WARM BLANKET. PT THANKED RN.
--- NOTE | 2019-12-29 09:04 | NUR ---
PT SLEEPING AT THIS TIME. RESPIRATIONS EVEN AND UNLABORED.
--- NOTE | 2019-12-29 09:53 | NUR ---
PT RESTING QUIETLY AT THIS TIME. DRINKING WATER. REPOSITIONS SELF ON GURNEY
[2019-12-29 10:27] VITALS: BP 143/86
--- NOTE | 2019-12-29 10:28 | NUR ---
ATTEMPTED TO SEE IF PT CAN AMBULATE. PT REPORTED FEELING ANXIOUS AND "MAYBE I HAVE CP." PT PLACED ON TIRE BUILDER HEAVY SERVICE. [address] NOTED. PT SPEAKING IN CLEAR FULL SENTENCES.
--- NOTE | 2019-12-29 11:04 | NUR ---
PT AMBULATED SLOWLY THROUGH HALLWAY, DENIED C/O CP. PT PROVIDED W/ WATER AND CRACKERS.
--- NOTE | 2019-12-29 11:21 | NUR ---
REVIEWED DISCHARGE INSTRUCTIONS W/ PT, VERBALIZED UNDERSTANDING TO INFORMATION PROVIDED INCLUDING FOLLOW UP CARE AND HAND HYGIENE, DENIED QUESTIONS/CONCERNS. PT AMBULATED TO REGISTRATION DESK, THANKED RN FOR CARE AND WILL TAKE TO HEART KEEPING NIECE FOCUS OF REMAINING SOBER.
== END 2019-12-29 11:24 | disposition home or self-care (01) ==
LOC: ED 03:13
DX: F10.129 Alcohol abuse with intoxication, unspecified (principal); R10.84 Generalized abdominal pain; R94.31 Abnormal electrocardiogram [ECG] [EKG]
CPT/HCPCS: 36415; 80053; 80307; 83690; 85025; 93005; 99284

== ENCOUNTER 2020-01-22 13:51 | Emergency (ER) | payer MEDICAID ==
[~2020-01-22] VITALS: Ht 182.9 cm; Wt 100.0 kg
--- NOTE | 2020-01-22 14:11 | NUR ---
BREAK RN: PT RESTING IN ROOM. DOG CATCHER ON. SINUS TACH NOTED. PT GIVEN THE CALL LIGHT. WILL CONTINUE TO MONITOR WHILE PRIMARY RN IS ON BREAK.
--- NOTE | 2020-01-22 14:18 | NUR ---
BREAK RN: DR MCKEON IN ROOM
[2020-01-22] MEDS ORDERED: SODIUM CHLORIDE 0.9% 1,000ML IVBOLUS ONE (14:30)
[2020-01-22] MEDS ORDERED: ONDANSETRON 2MG/ML, 2ML IVPush ONE (14:30)
[2020-01-22] MEDS ORDERED: ONDANSETRON 2MG/ML, 2ML ONE (14:32)
--- NOTE | 2020-01-22 14:45 | NUR ---
REPORT GIVEN TO JEREMI MOTA
--- NOTE | 2020-01-22 14:48 | NUR ---
Back from break, patient resting comfortably, remains on monitor, vital signs and heart rate appear stable. Awaiting lab results.
[2020-01-22 14:55] LABS: ANION GAP 11 mmol/L (5-15); CALCIUM 8.2 mg/dL (8.5-10.1); CHLORIDE 104 mmol/L (98-107); CREATININE 0.78 mg/dL (0.7-1.3)
[2020-01-22 15:03] LABS: BASOPHILS # (AUTO) 0.02 x10^3/uL (0-0.1); BASOPHILS % (AUTO) 0 % (0-1); EOSINOPHILS # (AUTO) 0.02 x10^3/uL (0-0.4); EOSINOPHILS % (AUTO) 0 % (1-7); LYMPHOCYTES % (AUTO) 37 % (22-44); MD NO; MEAN CORPUSCULAR HGB CONC 33.5 g/dL (33.2-36.2); MEAN CORPUSCULAR VOLUME 92.5 fL (81-97); MEAN PLATELET VOLUME 7.5 fL (7.4-10.4); MONOCYTES # (AUTO) 0.26 x10^3/uL (0.2-0.8); MONOCYTES % (AUTO) 5 % (2-9); NEUTROPHILS # (AUTO) 3.06 x10^3/uL (1.8-6.8); NEUTROPHILS % (AUTO) 57 % (42-75); PLATELET COUNT 250 x10^3/uL (130-400); RED BLOOD COUNT 5.04 x10^6/uL (4.38-5.82); RED CELL DISTRIBUTION WIDTH 14.2 % (9.4-14.8)
[2020-01-22 15:12] VITALS: BP 116/82
--- NOTE | 2020-01-22 15:13 | NUR ---
RN to bedside, intravenous fluids complete. Vital signs are stable, awaiting reevaluation from provider.
[2020-01-22] MEDS ORDERED: POTASSIUM CHLORIDE 20 MEQ TAB.ER.PRT ONE (15:18)
[2020-01-22] MEDS ORDERED: POTASSIUM CHLORIDE 20 MEQ TAB.ER.PRT PO ONE (15:30)
== END 2020-01-22 15:27 | disposition home or self-care (01) ==
LOC: ED 14:16
DX: F10.229 Alcohol dependence with intoxication, unspecified (principal); E87.6 Hypokalemia; R11.2 Nausea with vomiting, unspecified; R42 Dizziness and giddiness; R19.7 Diarrhea, unspecified; Z72.9 Problem related to lifestyle, unspecified; Y90.0 Blood alcohol level of less than 20 mg/100 ml
CPT/HCPCS: 36415; 80048; 80307; 83735; 85025; 96361; 96374; 99283; J2405; J7030

== ENCOUNTER 2020-01-23 05:12 | Emergency (ER) | payer MEDICAID ==
[~2020-01-23] VITALS: Ht 193 cm; Wt 100.0 kg
--- NOTE | 2020-01-23 05:25 | NUR ---
THIS IS A 39Y M BIB EMS FROM HOME FOR DIFFUSE ABD PAIN. PT WAS SEEN FOR THIS RECENTLY AND DX WITH PANCREATITIS. PT NOW STS CP AND L HAND NUMBNESS ONSET WHEN EMS ARRIVED. PER PT PAIN 05/24. PT WAS SEEN AND DC FROM ER FOR THIS SAME ABD PAIN. PT STS HE HAS NOT BEEN DRINKING SINCE WE LAST TOLD HIM NOT TO. PT CONNECTED TO ALL MONITORING, VSS, NADN.
[2020-01-23] MEDS ORDERED: LORazepam 2 MG/ML, 1ML IVPush ONE (05:30)
[2020-01-23] MEDS ORDERED: PANTOPRAZOLE 40 MG IV IV ONE (05:30)
[2020-01-23] MEDS ORDERED: MAALOX/HYOSCYAMINE/LIDOCAINE 45 ML BTL PO ONE (05:30)
[2020-01-23] MEDS ORDERED: MAALOX/HYOSCYAMINE/LIDOCAINE 45 ML BTL ONE (05:35)
[2020-01-23] MEDS ORDERED: PANTOPRAZOLE 40 MG IV ONE (05:35)
[2020-01-23] MEDS ORDERED: LORazepam 2 MG/ML, 1ML ONE (05:35)
--- NOTE | 2020-01-23 05:55 | NUR ---
PIV STARTED, PT MEDICATED PER MAR.
[2020-01-23 06:30] LABS: BASOPHILS # (AUTO) 0.01 x10^3/uL (0-0.1); BASOPHILS % (AUTO) 0 % (0-1); EOSINOPHILS % (AUTO) 0 % (1-7); LYMPHOCYTES # (AUTO) 1.03 x10^3/uL (1-3.4); LYMPHOCYTES % (AUTO) 25 % (22-44); MD NO; MEAN CORPUSCULAR HEMOGLOBIN 30.9 pg (27.5-34.5); MEAN CORPUSCULAR HGB CONC 33.5 g/dL (33.2-36.2); MEAN CORPUSCULAR VOLUME 92.3 fL (81-97); MEAN PLATELET VOLUME 7.6 fL (7.4-10.4); MONOCYTES # (AUTO) 0.36 x10^3/uL (0.2-0.8); MONOCYTES % (AUTO) 9 % (2-9); NEUTROPHILS # (AUTO) 2.68 x10^3/uL (1.8-6.8); NEUTROPHILS % (AUTO) 66 % (42-75); PLATELET COUNT 177 x10^3/uL (130-400); RED BLOOD COUNT 4.61 x10^6/uL (4.38-5.82); RED CELL DISTRIBUTION WIDTH 13.9 % (9.4-14.8)
[2020-01-23 06:34] LABS: ALANINE AMINOTRANSFERASE 44 U/L (12-78); ALBUMIN 3.7 g/dL (3.4-5.0); ANION GAP 12 mmol/L (5-15); CALCIUM 8.8 mg/dL (8.5-10.1); CHLORIDE 101 mmol/L (98-107); CREATININE 0.91 mg/dL (0.7-1.3)
[2020-01-23 06:39] LABS: ALKALINE PHOSPHATASE 50 U/L (45-117); BILIRUBIN,TOTAL 1.2 mg/dL (0.2-1.0); TOTAL PROTEIN 6.8 g/dL (6.4-8.2); TROPONIN I < 0.015 ng/mL (0.000-0.045)
--- NOTE | 2020-01-23 06:42 | NUR ---
PT RESTING ON [facility]AT[facility].
--- NOTE | 2020-01-23 07:16 | NUR ---
bedside report from therese BLOOD, pt resting in [facility], no needs at this time.
[2020-01-23] MEDS ORDERED: PROMETHAZINE 25 MG/ML, 1ML IM ONE (07:30)
[2020-01-23] MEDS ORDERED: POTASSIUM CHLORIDE 20 MEQ, MAGNESIUM SULFATE 1 GM, FOLIC ACID 1 MG, THIAMINE 200 MG, MV... IV SCH (07:33)
[2020-01-23] MEDS ORDERED: PROMETHAZINE 25 MG/ML, 1ML ONE (08:00)
[2020-01-23 08:06] VITALS: BP 132/72
--- NOTE | 2020-01-23 08:25 | NUR ---
Alexey elam started, pt medicated per DEC. pt resting in [facility], no needs at this time. call light within reach.
[2020-01-23 10:33] LABS: TROPONIN I < 0.015 ng/mL (0.000-0.045)
--- NOTE | 2020-01-23 10:35 | NUR ---
pt tolerated PO well with no n/v, notified. Repeat troponin pending. pt resting in [facility].
== END 2020-01-23 11:48 | disposition home or self-care (01) ==
LOC: ED 05:35
DX: K29.20 Alcoholic gastritis without bleeding (principal); F10.239 Alcohol dependence with withdrawal, unspecified; R10.31 Right lower quadrant pain; R11.2 Nausea with vomiting, unspecified; R07.89 Other chest pain; Z87.891 Personal history of nicotine dependence; Y90.0 Blood alcohol level of less than 20 mg/100 ml
CPT/HCPCS: 36415; 71045; 80053; 80307; 83690; 83735; 83880; 84484; 85025; 93005; 96361; 96372; 96374; 96375; 99285; C9113; J2060; J2550; J3411; J3475; J3480; J7042

== ENCOUNTER 2020-02-04 05:55 | Emergency (ER) | payer MEDICAID ==
[~2020-02-04] VITALS: Ht 182.9 cm; Wt 100.0 kg
[2020-02-04] MEDS ORDERED: SODIUM CHLORIDE 0.9% 1,000ML IVBOLUS ONE (06:30)
[2020-02-04] MEDS ORDERED: SODIUM CHLORIDE FLUSH 10ML SYR IVF ONE (06:30)
[2020-02-04 06:53] LABS: BASOPHILS # (AUTO) 0.04 x10^3/uL (0-0.1); BASOPHILS % (AUTO) 1 % (0-1); EOSINOPHILS % (AUTO) 0 % (1-7); LYMPHOCYTES # (AUTO) 2.72 x10^3/uL (1-3.4); LYMPHOCYTES % (AUTO) 40 % (22-44); MD NO; MEAN CORPUSCULAR HEMOGLOBIN 31.5 pg (27.5-34.5); MEAN CORPUSCULAR HGB CONC 34.1 g/dL (33.2-36.2); MEAN CORPUSCULAR VOLUME 92.3 fL (81-97); MEAN PLATELET VOLUME 6.8 fL (7.4-10.4); MONOCYTES # (AUTO) 0.63 x10^3/uL (0.2-0.8); MONOCYTES % (AUTO) 9 % (2-9); NEUTROPHILS # (AUTO) 3.39 x10^3/uL (1.8-6.8); NEUTROPHILS % (AUTO) 50 % (42-75); PLATELET COUNT 246 x10^3/uL (130-400); RED BLOOD COUNT 5.05 x10^6/uL (4.38-5.82); RED CELL DISTRIBUTION WIDTH 14.2 % (9.4-14.8)
[2020-02-04 06:57] LABS: ALANINE AMINOTRANSFERASE 35 U/L (12-78); ALBUMIN 4.1 g/dL (3.4-5.0); ANION GAP 14 mmol/L (5-15); CALCIUM 8.6 mg/dL (8.5-10.1); CHLORIDE 104 mmol/L (98-107)
[2020-02-04 07:00] LABS: ALKALINE PHOSPHATASE 58 U/L (45-117); BILIRUBIN,TOTAL 0.6 mg/dL (0.2-1.0); CREATININE 0.86 mg/dL (0.7-1.3); TOTAL PROTEIN 7.9 g/dL (6.4-8.2)
[2020-02-04] MEDS ORDERED: POTASSIUM CHLORIDE 20 MEQ TAB.ER.PRT ONE (07:29)
[2020-02-04] MEDS ORDERED: POTASSIUM CHLORIDE 20 MEQ TAB.ER.PRT PO ONE (07:30)
--- NOTE | 2020-02-04 08:19 | NUR ---
PT ETOH. IVF. GIVEN MEAL TRAY. VSS
--- NOTE | 2020-02-04 09:38 | NUR ---
pt sleeping off and on, intoxicated. vss.
--- NOTE | 2020-02-04 10:30 | NUR ---
PT STEADY ON FEET. READY FOR DC.
--- NOTE | 2020-02-04 10:58 | NUR ---
Patient/Caregiver given discharge instructions and they have confirmed that they understand the instructions. Patient ambulatory with steady gait.
[2020-02-04 11:06] VITALS: BP 154/83
== END 2020-02-04 11:10 | disposition home or self-care (01) ==
LOC: ED 06:23
DX: F10.120 Alcohol abuse with intoxication, uncomplicated (principal); E87.6 Hypokalemia; R00.0 Tachycardia, unspecified; Y90.9 Presence of alcohol in blood, level not specified
CPT/HCPCS: 36415; 80053; 80307; 83690; 83735; 85025; 93005; 96360; 96361; 99284; J7030

== ENCOUNTER 2020-02-04 18:37 | Emergency (ER) | payer MEDICAID ==
[~2020-02-04] VITALS: Ht 182.9 cm; Wt 99.2 kg
[2020-02-04 20:50] VITALS: BP 161/99
[2020-02-04] MEDS ORDERED: LORazepam 1MG TABLET ONE (22:09)
[2020-02-04] MEDS ORDERED: PROMETHAZINE 25 MG/ML, 1ML ONE (22:09)
--- NOTE | 2020-02-04 22:12 | NUR ---
PT RESTING ON [facility], MONITORS IN PLACE, MEDICATED PER DEC, CALL LIGHT WITHIN REACH
[2020-02-04] MEDS ORDERED: PROMETHAZINE 25 MG/ML, 1ML IM ONE (22:30)
[2020-02-04] MEDS ORDERED: LORazepam 1MG TABLET PO ONE (22:30)
[2020-02-04 22:43] LABS: ALANINE AMINOTRANSFERASE 33 U/L (12-78); ALBUMIN 4.3 g/dL (3.4-5.0); ANION GAP 11 mmol/L (5-15); CALCIUM 9.3 mg/dL (8.5-10.1); CHLORIDE 102 mmol/L (98-107); CREATININE 1.06 mg/dL (0.7-1.3)
[2020-02-04 22:45] LABS: ALKALINE PHOSPHATASE 56 U/L (45-117); BASOPHILS % (AUTO) 0 % (0-1); BILIRUBIN,TOTAL 0.9 mg/dL (0.2-1.0); EOSINOPHILS # (AUTO) 0.06 x10^3/uL (0-0.4); EOSINOPHILS % (AUTO) 0 % (1-7); LYMPHOCYTES # (AUTO) 0.76 x10^3/uL (1-3.4); LYMPHOCYTES % (AUTO) 6 % (22-44); MD NO; MEAN CORPUSCULAR HEMOGLOBIN 30.9 pg (27.5-34.5); MEAN CORPUSCULAR HGB CONC 33.5 g/dL (33.2-36.2); MEAN CORPUSCULAR VOLUME 92.1 fL (81-97); MEAN PLATELET VOLUME 7.4 fL (7.4-10.4); MONOCYTES # (AUTO) 0.79 x10^3/uL (0.2-0.8); MONOCYTES % (AUTO) 6 % (2-9); NEUTROPHILS # (AUTO) 11.44 x10^3/uL (1.8-6.8); NEUTROPHILS % (AUTO) 88 % (42-75); PLATELET COUNT 216 x10^3/uL (130-400); RED BLOOD COUNT 4.81 x10^6/uL (4.38-5.82); RED CELL DISTRIBUTION WIDTH 14.5 % (9.4-14.8); TOTAL PROTEIN 7.7 g/dL (6.4-8.2)
== END 2020-02-04 23:21 | disposition home or self-care (01) ==
LOC: ED 22:29
DX: F10.239 Alcohol dependence with withdrawal, unspecified (principal); R42 Dizziness and giddiness; R55 Syncope and collapse; R73.9 Hyperglycemia, unspecified; R11.0 Nausea; R10.9 Unspecified abdominal pain; R00.0 Tachycardia, unspecified; Y90.0 Blood alcohol level of less than 20 mg/100 ml
CPT/HCPCS: 36415; 80053; 80307; 85025; 93005; 96372; 99284; J2550

== ENCOUNTER 2020-02-17 23:40 | Emergency (ER) | payer MEDICAID ==
[~2020-02-17] VITALS: Ht 182.9 cm; Wt 85.0 kg
--- NOTE | 2020-02-17 23:41 | NUR ---
PATIENT ARRIVES TO ER WITH A HISTORY OF PANCREATITIS, AND IS NOTICABLY INTOXICATED. HE IS SLURRING SPEECH, MOVES IN SWAYING CLUMSY MOTIONS, AND SMELLS OF ETOH. HE IS RESPONDING BUT WITH SHORT SLURRED ANSWERS. ON MONITOR, RAILS UP
[2020-02-18 00:11] LABS: BASOPHILS # (AUTO) 0.02 x10^3/uL (0-0.1); BASOPHILS % (AUTO) 0 % (0-1); EOSINOPHILS # (AUTO) 0.01 x10^3/uL (0-0.4); EOSINOPHILS % (AUTO) 0 % (1-7); LYMPHOCYTES # (AUTO) 1.42 x10^3/uL (1-3.4); LYMPHOCYTES % (AUTO) 23 % (22-44); MD NO; MEAN CORPUSCULAR HEMOGLOBIN 30.8 pg (27.5-34.5); MEAN CORPUSCULAR HGB CONC 33.7 g/dL (33.2-36.2); MEAN CORPUSCULAR VOLUME 91.5 fL (81-97); MEAN PLATELET VOLUME 7.2 fL (7.4-10.4); MONOCYTES % (AUTO) 6 % (2-9); NEUTROPHILS # (AUTO) 4.42 x10^3/uL (1.8-6.8); NEUTROPHILS % (AUTO) 71 % (42-75); PLATELET COUNT 233 x10^3/uL (130-400); RED CELL DISTRIBUTION WIDTH 14.9 % (9.4-14.8)
[2020-02-18 00:18] LABS: ALBUMIN 4.1 g/dL (3.4-5.0); ANION GAP 10 mmol/L (5-15); CALCIUM 8.2 mg/dL (8.5-10.1); CHLORIDE 102 mmol/L (98-107); CREATININE 0.95 mg/dL (0.7-1.3)
--- NOTE | 2020-02-18 00:45 | NUR ---
attempted to wake patient to see if he can walk. patient took light tactile stimulation to wake up, and when he woke up he is moving very slowly and slurring speech wondering where he is. asked him if he thinks he could sit up as patient is on side sleeping, and patient moves very slowly and clumsily. he attempted to sit up and is slow, and fine motor skill lacking. let him get back to sleep.
--- NOTE | 2020-02-18 01:21 | NUR ---
RECEIVED REPORT FROM JEREMI FINN TO ASSUME CARE OF PT. PT. RESTING ON GURNEY WITH EYES CLOSED. NO DISTRESS NOTED. RESPIATIONS VISIBLE AND NON-LABORED.
--- NOTE | 2020-02-18 03:06 | NUR ---
Patient sleeping in room. Respirations easy/unlabored. In no sign of distress. On rn cardiac rehab. VSS.Will continue to monitor.
--- NOTE | 2020-02-18 04:05 | NUR ---
Patient is ambulatory around ED with steady gait. VSS.
[2020-02-18 04:16] VITALS: BP 125/88
== END 2020-02-18 04:19 | disposition home or self-care (01) ==
LOC: ED 02-18 00:13
DX: F10.220 Alcohol dependence with intoxication, uncomplicated (principal); R42 Dizziness and giddiness; Y90.9 Presence of alcohol in blood, level not specified
CPT/HCPCS: 36415; 80048; 82040; 85025; 93005; 99284

== ENCOUNTER 2020-02-18 17:39 | Emergency (ER) | payer MEDICAID ==
[~2020-02-18] VITALS: Ht 182.9 cm; Wt 100.0 kg
[2020-02-18 18:14] LABS: BASOPHILS # (AUTO) 0.02 x10^3/uL (0-0.1); BASOPHILS % (AUTO) 0 % (0-1); EOSINOPHILS # (AUTO) 0.03 x10^3/uL (0-0.4); EOSINOPHILS % (AUTO) 1 % (1-7); LYMPHOCYTES % (AUTO) 26 % (22-44); MD NO; MEAN CORPUSCULAR HEMOGLOBIN 30.9 pg (27.5-34.5); MEAN CORPUSCULAR HGB CONC 33.6 g/dL (33.2-36.2); MEAN CORPUSCULAR VOLUME 91.9 fL (81-97); MEAN PLATELET VOLUME 7.2 fL (7.4-10.4); MONOCYTES # (AUTO) 0.23 x10^3/uL (0.2-0.8); MONOCYTES % (AUTO) 4 % (2-9); NEUTROPHILS # (AUTO) 3.99 x10^3/uL (1.8-6.8); NEUTROPHILS % (AUTO) 69 % (42-75); PLATELET COUNT 244 x10^3/uL (130-400); RED CELL DISTRIBUTION WIDTH 15.2 % (9.4-14.8)
[2020-02-18 18:20] LABS: ALANINE AMINOTRANSFERASE 37 U/L (12-78); ALBUMIN 4.1 g/dL (3.4-5.0); ANION GAP 13 mmol/L (5-15); CALCIUM 8.2 mg/dL (8.5-10.1); CHLORIDE 102 mmol/L (98-107); CREATININE 0.95 mg/dL (0.7-1.3)
[2020-02-18 18:22] LABS: SALICYLATE LEVEL < 1.7 mg/dL (2.8-20.0)
[2020-02-18 18:36] LABS: ALKALINE PHOSPHATASE 63 U/L (45-117); BILIRUBIN,TOTAL 0.4 mg/dL (0.2-1.0); TOTAL PROTEIN 7.7 g/dL (6.4-8.2)
--- NOTE | 2020-02-18 18:41 | NUR ---
RELIEF RN: pt changed into gown, resting on gurney on monitor. Pt NAD, RESP WNL, DODGE, P/W/D, call light on lap. Lights dimmed for comfort, pt given urinal and informed that a urine sample is needed, pt states that "i cant pee right now". WCTM.
[2020-02-18 19:33] LABS: AMPHETAMINE SCREEN, URINE Negative (Negative); BARBITURATE SCREEN, URINE Negative (Negative); BENZODIAZEPINE SCREEN, URINE Positive (Negative); CANNABINOID SCREEN, URINE Negative (Negative); COCAINE SCREEN, URINE Negative (Negative); METHADONE SCREEN, URINE Negative (Negative); OPIATE SCREEN, URINE Negative (Negative)
--- NOTE | 2020-02-18 23:00 | NUR ---
PT AOX4. PT AMBULATORY AND SOBER. PT STATES HE IS READY TO GO HOME. GAVE PT DC INSTRUCTIONS. PT VERBALIZED UNDERSTANDING.
[2020-02-18 23:01] VITALS: BP 118/74
== END 2020-02-18 23:03 | disposition home or self-care (01) ==
LOC: ED 19:03
DX: F10.120 Alcohol abuse with intoxication, uncomplicated (principal); R41.82 Altered mental status, unspecified; Y90.0 Blood alcohol level of less than 20 mg/100 ml
CPT/HCPCS: 36415; 80053; 80307; 85025; 99285

== ENCOUNTER 2020-03-04 06:18 | Emergency (ER) | payer MEDICAID ==
[~2020-03-04] VITALS: Ht 182.9 cm; Wt 100.0 kg
[~2020-03-04 06:18] MED LIST changes: +ACET-2274 PO; -ACET325T21 PO; -PANT40TA5 PO; +PANT40TA6 PO
[2020-03-04] MEDS ORDERED: SODIUM CHLORIDE 0.9% 1,000ML IVBOLUS ONE ×2 (06:30→07:00)
[2020-03-04] MEDS ORDERED: ONDANSETRON 2MG/ML, 2ML IVPush ONE (06:30)
[2020-03-04] MEDS ORDERED: LORazepam 2 MG/ML, 1ML IVPush ONE (06:30)
--- NOTE | 2020-03-04 06:36 | NUR ---
PT BIB [facility] FOR DETOX. PT CHANGED INTO GOWN, RESTING ON AMRITA, NAD, RESP WNL, P/W/D, DARIO ALONSO AT FOR EVLA AND DISCUSSING POC. GIVEN WARM BLANKET FOR COMFORT, CALL LIGHT ON LAP. WCTM
[2020-03-04] MEDS ORDERED: LORazepam 2 MG/ML, 1ML ONE (06:47)
[2020-03-04] MEDS ORDERED: ONDANSETRON 2MG/ML, 2ML ONE (06:47)
--- NOTE | 2020-03-04 06:59 | NUR ---
bedside report to Tuan BLOOD. pt care transferred at this point.
[2020-03-04] MEDS ORDERED: MAALOX/HYOSCYAMINE/LIDOCAINE 45 ML BTL PO ONE (07:00)
--- NOTE | 2020-03-04 07:02 | NUR ---
I AM ASSUMING CARE OF THIS PT FROM RUSTY (JEREMI) AT THIS TIME. SBAR REPORT WAS EXCHANGED AT THE BEDSIDE.
[2020-03-04] MEDS ORDERED: MAALOX/HYOSCYAMINE/LIDOCAINE 45 ML BTL ONE (07:22)
[2020-03-04 07:27] LABS: BASOPHILS # (AUTO) 0.02 x10^3/uL (0-0.1); BASOPHILS % (AUTO) 0 % (0-1); EOSINOPHILS % (AUTO) 0 % (1-7); LYMPHOCYTES # (AUTO) 1.69 x10^3/uL (1-3.4); LYMPHOCYTES % (AUTO) 26 % (22-44); MD NO; MEAN CORPUSCULAR HEMOGLOBIN 31.3 pg (27.5-34.5); MEAN CORPUSCULAR HGB CONC 33.6 g/dL (33.2-36.2); MEAN PLATELET VOLUME 6.8 fL (7.4-10.4); MONOCYTES # (AUTO) 0.52 x10^3/uL (0.2-0.8); MONOCYTES % (AUTO) 8 % (2-9); NEUTROPHILS # (AUTO) 4.32 x10^3/uL (1.8-6.8); NEUTROPHILS % (AUTO) 66 % (42-75); PLATELET COUNT 251 x10^3/uL (130-400); RED BLOOD COUNT 4.86 x10^6/uL (4.38-5.82); RED CELL DISTRIBUTION WIDTH 15.4 % (9.4-14.8)
[2020-03-04 07:38] LABS: ALBUMIN 3.7 g/dL (3.4-5.0); ANION GAP 14 mmol/L (5-15); CALCIUM 8.9 mg/dL (8.5-10.1); CHLORIDE 103 mmol/L (98-107)
[2020-03-04 07:41] LABS: ALANINE AMINOTRANSFERASE 38 U/L (12-78); ALKALINE PHOSPHATASE 56 U/L (45-117); BILIRUBIN,TOTAL 0.6 mg/dL (0.2-1.0); CREATININE 0.96 mg/dL (0.7-1.3); TOTAL PROTEIN 7.2 g/dL (6.4-8.2)
[2020-03-04 09:17] VITALS: BP 146/90
--- NOTE | 2020-03-04 09:17 | NUR ---
Patient/Caregiver given discharge instructions and they have confirmed that they understand the instructions. Patient ambulatory with steady gait.
== END 2020-03-04 09:19 | disposition home or self-care (01) ==
LOC: ED 07:37
DX: F10.10 Alcohol abuse, uncomplicated (principal); F41.9 Anxiety disorder, unspecified; R11.2 Nausea with vomiting, unspecified; R42 Dizziness and giddiness; R10.9 Unspecified abdominal pain; R45.1 Restlessness and agitation; F32.9 Major depressive disorder, single episode, unspecified; I48.91 Unspecified atrial fibrillation; R73.9 Hyperglycemia, unspecified; Y90.0 Blood alcohol level of less than 20 mg/100 ml
CPT/HCPCS: 36415; 80053; 80307; 82140; 83690; 85025; 93005; 96361; 96374; 96375; 99284; J2060; J2405; J7030

== ENCOUNTER 2020-04-30 17:19 | Emergency (ER) | payer MEDICAID ==
[~2020-04-30] VITALS: Ht 182.9 cm; Wt 99.2 kg
[2020-04-30 17:35] VITALS: BP 117/87
[2020-04-30] MEDS ORDERED: ONDANSETRON ODT 4 MG PO ONE (18:30)
[2020-04-30] MEDS ORDERED: ONDANSETRON ODT 4 MG ONE (18:31)
[2020-04-30 18:33] LABS: BASOPHILS # (AUTO) 0.03 x10^3/uL (0-0.1); BASOPHILS % (AUTO) 1 % (0-1); EOSINOPHILS % (AUTO) 0 % (1-7); LYMPHOCYTES # (AUTO) 1.36 x10^3/uL (1-3.4); LYMPHOCYTES % (AUTO) 24 % (22-44); MD NO; MEAN CORPUSCULAR HEMOGLOBIN 30.3 pg (27.5-34.5); MEAN CORPUSCULAR HGB CONC 33.7 g/dL (33.2-36.2); MEAN PLATELET VOLUME 7.6 fL (7.4-10.4); MONOCYTES # (AUTO) 0.46 x10^3/uL (0.2-0.8); MONOCYTES % (AUTO) 8 % (2-9); NEUTROPHILS # (AUTO) 3.79 x10^3/uL (1.8-6.8); NEUTROPHILS % (AUTO) 67 % (42-75); PLATELET COUNT 196 x10^3/uL (130-400); RED BLOOD COUNT 5.08 x10^6/uL (4.38-5.82); RED CELL DISTRIBUTION WIDTH 14.5 % (9.4-14.8)
[2020-04-30 18:39] LABS: ALANINE AMINOTRANSFERASE 37 U/L (12-78); ALBUMIN 4.2 g/dL (3.4-5.0); ANION GAP 10 mmol/L (5-15); CALCIUM 9.4 mg/dL (8.5-10.1); CHLORIDE 100 mmol/L (98-107); CREATININE 0.98 mg/dL (0.7-1.3)
[2020-04-30 18:43] LABS: ALKALINE PHOSPHATASE 61 U/L (45-117); BILIRUBIN,TOTAL 0.8 mg/dL (0.2-1.0); TOTAL PROTEIN 7.6 g/dL (6.4-8.2); TROPONIN I < 0.015 ng/mL (0.000-0.045)
--- NOTE | 2020-04-30 19:29 | NUR ---
PT AMB TO RESTROOM W/STEADY GAIT NO ASSIST REQ AT THIS TIME
--- NOTE | 2020-04-30 19:43 | NUR ---
PT PROVIDED WATER FOR PO CHALLENGE PER .
== END 2020-04-30 20:14 | disposition home or self-care (01) ==
LOC: ED 20:09
DX: R42 Dizziness and giddiness (principal); R10.84 Generalized abdominal pain; R11.2 Nausea with vomiting, unspecified; R07.9 Chest pain, unspecified; R00.0 Tachycardia, unspecified
CPT/HCPCS: 36415; 71045; 80053; 83690; 84484; 85025; 93005; 99285; Q0162

== ENCOUNTER 2020-06-04 12:42 | Emergency (ER) | payer MEDICAID ==
[~2020-06-04] VITALS: Ht 182.9 cm; Wt 100.0 kg
[~2020-06-04 12:42] MED LIST changes: +PANT40TA5 PO; -PANT40TA6 PO
[2020-06-04 14:41] LABS: BASOPHILS # (AUTO) 0.04 x10^3/uL (0-0.1); BASOPHILS % (AUTO) 1 % (0-1); EOSINOPHILS % (AUTO) 0 % (1-7); LYMPHOCYTES # (AUTO) 1.54 x10^3/uL (1-3.4); LYMPHOCYTES % (AUTO) 21 % (22-44); MD NO; MEAN CORPUSCULAR HEMOGLOBIN 29.6 pg (27.5-34.5); MEAN CORPUSCULAR HGB CONC 33.1 g/dL (33.2-36.2); MEAN CORPUSCULAR VOLUME 89.3 fL (81-97); MEAN PLATELET VOLUME 7.5 fL (7.4-10.4); MONOCYTES # (AUTO) 0.55 x10^3/uL (0.2-0.8); MONOCYTES % (AUTO) 8 % (2-9); NEUTROPHILS # (AUTO) 5.13 x10^3/uL (1.8-6.8); NEUTROPHILS % (AUTO) 71 % (42-75); PLATELET COUNT 238 x10^3/uL (130-400); RED BLOOD COUNT 5.25 x10^6/uL (4.38-5.82); RED CELL DISTRIBUTION WIDTH 14.3 % (9.4-14.8)
--- NOTE | 2020-06-04 14:43 | NUR ---
PT IN HOSPITAL GOWN. LAB HAS DRAWN BLOOD. PT GIVEN WATER FOR PO CHALLANGE
[2020-06-04 14:54] LABS: ALBUMIN 4.5 g/dL (3.4-5.0); ANION GAP 10 mmol/L (5-15); CALCIUM 9.7 mg/dL (8.5-10.1); CHLORIDE 104 mmol/L (98-107)
[2020-06-04 15:00] LABS: ALANINE AMINOTRANSFERASE 73 U/L (12-78); ALKALINE PHOSPHATASE 72 U/L (45-117); BILIRUBIN,TOTAL 0.5 mg/dL (0.2-1.0); CREATININE 1.03 mg/dL (0.7-1.3); TOTAL PROTEIN 7.9 g/dL (6.4-8.2)
--- NOTE | 2020-06-04 15:15 | NUR ---
PT AMBULATED STEADILY TO BATHROOM. HAS DRANK SOME WATER, NO C/O NAUSEA AT THIS TIME.
[2020-06-04 16:09] VITALS: BP 114/90
[2020-06-04] MEDS ORDERED: LORazepam 1MG TABLET ONE (16:26)
[2020-06-04] MEDS ORDERED: LORazepam 1MG TABLET PO ONE (16:30)
== END 2020-06-04 16:55 | disposition home or self-care (01) ==
LOC: ED 14:02
DX: R42 Dizziness and giddiness (principal); F10.220 Alcohol dependence with intoxication, uncomplicated; R00.0 Tachycardia, unspecified; R94.31 Abnormal electrocardiogram [ECG] [EKG]; Y90.9 Presence of alcohol in blood, level not specified
CPT/HCPCS: 36415; 80053; 80307; 85025; 93005; 99283; 99284

== ENCOUNTER 2020-08-14 14:22 | Inpatient (IN) | payer MEDICAID ==
[~2020-08-14] VITALS: Ht 182.9 cm; Wt 104.0 kg
[~2020-08-14 14:22] MED LIST changes: -PANT40TA5 PO; +PANT40TA6 PO
[2020-08-14] MEDS ORDERED: ONDANSETRON 2MG/ML, 2ML ONE (15:50)
[2020-08-14] MEDS ORDERED: LORazepam 2 MG/ML, 1ML ONE (15:51)
[2020-08-14] MEDS ORDERED: SODIUM CHLORIDE 0.9% 1,000ML IVBOLUS ONE (16:00)
[2020-08-14] MEDS ORDERED: ONDANSETRON 2MG/ML, 2ML IVPush ONE (16:00)
[2020-08-14] MEDS ORDERED: THIAMINE 100 MG in SODIUM CHLORIDE 0.9% 50 ML IVPB ONE (16:00)
[2020-08-14] MEDS ORDERED: LORazepam 2 MG/ML, 1ML IVPush PRN ×2 (16:00→18:30)
[2020-08-14] MEDS ORDERED: SODIUM CHLORIDE FLUSH 10ML SYR IVF ONE (16:00)
[2020-08-14 16:07] LABS: BASOPHILS % (AUTO) 0 % (0-1); EOSINOPHILS % (AUTO) 0 % (1-7); LYMPHOCYTES % (AUTO) 19 % (22-44); MEAN CORPUSCULAR HEMOGLOBIN 29.1 pg (27.5-34.5); MEAN PLATELET VOLUME 7.7 fL (7.4-10.4); MONOCYTES % (AUTO) 10 % (2-9); NEUTROPHILS % (AUTO) 71 % (42-75); PLATELET COUNT 205 x10^3/uL (130-400); RED BLOOD COUNT 5.01 x10^6/uL (4.38-5.82); RED CELL DISTRIBUTION WIDTH 15.2 % (9.4-14.8)
[2020-08-14 16:09] LABS: MD NO
[2020-08-14 16:10] LABS: ALANINE AMINOTRANSFERASE 48 U/L (12-78); ALBUMIN 4.1 g/dL (3.4-5.0); ANION GAP 16 mmol/L (5-15); CALCIUM 9.5 mg/dL (8.5-10.1); CHLORIDE 98 mmol/L (98-107)
[2020-08-14 16:13] LABS: ALKALINE PHOSPHATASE 66 U/L (45-117); BILIRUBIN,TOTAL 1.4 mg/dL (0.2-1.0); TOTAL PROTEIN 7.7 g/dL (6.4-8.2)
[2020-08-14 17:00] LABS: INTERNATIONAL NORMALIZED RATIO 1.05 (0.93-1.1); PROTHROMBIN TIME 11.1 Seconds (9.6-11.5)
[2020-08-14] MEDS: POTASSIUM CHLORIDE 20 MEQ, MAGNESIUM SULFATE 1 GM, THIAMINE 200 MG, FOLIC ACID 1 MG, MV... IV SCH (18:30)
[2020-08-14] MEDS ORDERED: LORazepam 2 MG/ML, 1ML IV PRN ×5 (18:30)
[2020-08-14] MEDS ORDERED: POLYETHYLENE GLYCOL 17 GM PACKET PO PRN (18:30)
[2020-08-14] MEDS ORDERED: LABETALOL 5MG/ML, 20ML IV PRN (18:30)
[2020-08-14] MEDS ORDERED: ENALAPRILAT 1.25 MG/ML, 2ML IVPush PRN (18:30)
[2020-08-14] MEDS ORDERED: LABETALOL 5MG/ML, 20ML IVPush PRN ×2 (18:30→19:00)
[2020-08-14] MEDS ORDERED: BISACODYL 10 MG SUPP PR PRN (18:30)
[2020-08-14] MEDS ORDERED: OXYcodone IR 5MG TABLET PO PRN (18:30)
[2020-08-14] MEDS ORDERED: ONDANSETRON 2MG/ML, 2ML IVPush PRN (18:30)
[2020-08-14] MEDS ORDERED: ENOXAPARIN 40 MG/0.4 ML SQ SCH (18:30)
[2020-08-14] MEDS ORDERED: HEPARIN 5,000 UNITS/ML, 1ML SQ SCH (18:30)
[2020-08-14] MEDS ORDERED: CHLORDIAZEPOXIDE 25 MG CAPSULE ONE (18:52)
[2020-08-14] MEDS: CHLORDIAZEPOXIDE 25 MG CAPSULE PO SCH (18:56)
[2020-08-14] MEDS ORDERED: SEROQUEL PO (18:59)
[2020-08-14] MEDS: ENOXAPARIN 40 MG/0.4 ML SQ SCH (19:00)
[2020-08-14] MEDS ORDERED: ENOXAPARIN 40 MG/0.4 ML ONE (20:23)
[2020-08-14 20:51] VITALS: BP 124/84
[2020-08-14] MEDS ORDERED: TRAZODONE 100MG TABLET PO SCH (21:00)
[2020-08-14] MEDS ORDERED: MELATONIN 5 MG TABLET PO SCH (21:00)
[2020-08-14] MEDS: TRAZODONE 100MG TABLET PO SCH (21:04)
[2020-08-15 01:05] VITALS: BP 125/83
[2020-08-15] MEDS: CHLORDIAZEPOXIDE 25 MG CAPSULE PO SCH ×3 (02:01→17:20)
[2020-08-15 05:51] LABS: BASOPHILS % (AUTO) 0 % (0-1); EOSINOPHILS % (AUTO) 0 % (1-7); LYMPHOCYTES % (AUTO) 40 % (22-44); MEAN CORPUSCULAR HEMOGLOBIN 29.2 pg (27.5-34.5); MEAN CORPUSCULAR HGB CONC 33.6 g/dL (33.2-36.2); MEAN PLATELET VOLUME 7.5 fL (7.4-10.4); MONOCYTES % (AUTO) 9 % (2-9); NEUTROPHILS % (AUTO) 50 % (42-75); PLATELET COUNT 160 x10^3/uL (130-400); RED BLOOD COUNT 4.44 x10^6/uL (4.38-5.82); RED CELL DISTRIBUTION WIDTH 15.4 % (9.4-14.8)
[2020-08-15 05:57] LABS: ALANINE AMINOTRANSFERASE 34 U/L (12-78); ALBUMIN 3.4 g/dL (3.4-5.0); ANION GAP 6 mmol/L (5-15); CALCIUM 8.2 mg/dL (8.5-10.1); CHLORIDE 104 mmol/L (98-107); CREATININE 0.92 mg/dL (0.7-1.3)
[2020-08-15 05:58] LABS: ALKALINE PHOSPHATASE 64 U/L (45-117); TOTAL PROTEIN 6.1 g/dL (6.4-8.2)
[2020-08-15 06:02] LABS: MD NO
[2020-08-15] MEDS ORDERED: LORazepam 0.5MG TABLET PO PRN (07:30)
[2020-08-15] MEDS ORDERED: LORazepam 1MG TABLET PO PRN ×4 (07:30)
[2020-08-15 08:12] VITALS: BP 130/83
[2020-08-15] MEDS: PANTOPRAZOLE 40MG TABLET PO SCH (08:15)
[2020-08-15] MEDS: MULTIVITAMINS/MINERALS TABLET PO SCH (08:15)
[2020-08-15] MEDS: SENNA/DOCUSATE TABLET PO SCH (08:15)
[2020-08-15] MEDS: THIAMINE 100MG TABLET PO SCH (08:15)
[2020-08-15] MEDS: FOLIC ACID 1 MG TABLET PO SCH (08:15)
[2020-08-15] MEDS ORDERED: POTASSIUM CHLORIDE 20 MEQ, MAGNESIUM SULFATE 1 GM, THIAMINE 200 MG, FOLIC ACID 1 MG, MV... IV SCH (09:00)
[2020-08-15 15:59] VITALS: BP 122/75
[2020-08-15] MEDS: ENOXAPARIN 40 MG/0.4 ML SQ SCH (17:20)
[2020-08-15] MEDS: POTASSIUM CHLORIDE 20 MEQ, MAGNESIUM SULFATE 1 GM, THIAMINE 200 MG, FOLIC ACID 1 MG, MV... IV SCH (17:54)
[2020-08-15 20:27] VITALS: BP 145/95
[2020-08-15] MEDS: TRAZODONE 100MG TABLET PO SCH (20:49)
[2020-08-16 00:54] VITALS: BP 127/84
[2020-08-16] MEDS: PANTOPRAZOLE 40MG TABLET PO SCH (05:39)
[2020-08-16 06:19] LABS: CHLORIDE 109 mmol/L (98-107)
[2020-08-16 06:22] LABS: BASOPHILS % (AUTO) 1 % (0-1); EOSINOPHILS % (AUTO) 0 % (1-7); LYMPHOCYTES % (AUTO) 42 % (22-44); MEAN CORPUSCULAR HEMOGLOBIN 29.4 pg (27.5-34.5); MEAN CORPUSCULAR HGB CONC 33.5 g/dL (33.2-36.2); MEAN PLATELET VOLUME 8.1 fL (7.4-10.4); MONOCYTES % (AUTO) 6 % (2-9); NEUTROPHILS % (AUTO) 52 % (42-75); PLATELET COUNT 137 x10^3/uL (130-400); RED BLOOD COUNT 4.27 x10^6/uL (4.38-5.82); RED CELL DISTRIBUTION WIDTH 15.3 % (9.4-14.8)
[2020-08-16 06:26] LABS: ALANINE AMINOTRANSFERASE 28 U/L (12-78); ALBUMIN 3.3 g/dL (3.4-5.0); ALKALINE PHOSPHATASE 65 U/L (45-117); ANION GAP 8 mmol/L (5-15); CALCIUM 8.6 mg/dL (8.5-10.1); CREATININE 0.88 mg/dL (0.7-1.3)
[2020-08-16 06:41] LABS: MD NO
[2020-08-16 07:35] VITALS: BP 125/85
[2020-08-16] MEDS ORDERED: OMEP-110 PO (08:33)
[2020-08-16] MEDS ORDERED: THIA100T67 PO (08:33)
[2020-08-16] MEDS: SENNA/DOCUSATE TABLET PO SCH (09:00)
[2020-08-16] MEDS: THIAMINE 100MG TABLET PO SCH (09:26)
[2020-08-16] MEDS: FOLIC ACID 1 MG TABLET PO SCH (09:26)
[2020-08-16] MEDS: MULTIVITAMINS/MINERALS TABLET PO SCH (09:26)
== END 2020-08-16 10:39 | disposition home or self-care (01) | DRG 896 ==
LOC: ED 16:29 → EDIP 18:06 → 5SO 20:33 → DCLOUNGE 08-16 10:24
PROVIDERS: ADMIT Internal Medicine; ATTEND Family Medicine
DX: F10.231 Alcohol dependence with withdrawal delirium (principal); G93.41 Metabolic encephalopathy; E87.1 Hypo-osmolality and hyponatremia; E87.2 Acidosis; F31.9 Bipolar disorder, unspecified; F12.90 Cannabis use, unspecified, uncomplicated; K70.10 Alcoholic hepatitis without ascites; Z80.0 Family history of malignant neoplasm of digestive organs; Z82.0 Family history of epilepsy and other diseases of the nervous system; Z82.49 Family history of ischemic heart disease and other diseases of the circulatory system; Z83.3 Family history of diabetes mellitus; Z87.891 Personal history of nicotine dependence
CPT/HCPCS: 36415; 80053; 80307; 82140; 83690; 83735; 84100; 85025; 85610; 85730; 93005; 96361; 96365; 96366; 96375; 99285; G0378; J1650; J2405; J3411; J3475; J3480; J2060; J7030; Q0177

== ENCOUNTER 2020-08-23 20:44 | Emergency (ER) | payer MEDICAID ==
[~2020-08-23] VITALS: Ht 182.9 cm; Wt 103.0 kg
[~2020-08-23 20:44] MED LIST changes: +SEROQUEL PO
--- NOTE | 2020-08-23 20:58 | NUR ---
PT BIB EMS. PT STATES HAVING NAUSEA AND VOMITING SINCE LAST NIGHT. PT STATED VOMITNG LAST AT 1100 TODAY. PT STATED DRINKING AN UNKNOWN AMOUNT OF VODKA LAST NIGHT. PT GIVEN 4MG ORAL ZOFRAN, IV LINE, AND 300 ML NS PER EMS. ALL MONITORS PLACED, RESP EVEN/UNLABORED. AWAITING ERP EVAL
[2020-08-23] MEDS ORDERED: ONDANSETRON 2MG/ML, 2ML IVPush ONE (21:30)
[2020-08-23] MEDS ORDERED: THIAMINE 100 MG/ML, 2ML IM ONE (21:30)
[2020-08-23] MEDS ORDERED: SODIUM CHLORIDE 0.9% 1,000ML IVBOLUS ONE (21:30)
[2020-08-23] MEDS ORDERED: FAMOTIDINE 20 MG/2 ML IV ONE (21:30)
[2020-08-23] MEDS ORDERED: LORazepam 2 MG/ML, 1ML IVPush ONE (21:30)
[2020-08-23 21:40] LABS: BASOPHILS % (AUTO) 0 % (0-1); EOSINOPHILS % (AUTO) 0 % (1-7); LYMPHOCYTES % (AUTO) 32 % (22-44); MEAN CORPUSCULAR HEMOGLOBIN 29.3 pg (27.5-34.5); MEAN CORPUSCULAR HGB CONC 33.3 g/dL (33.2-36.2); MEAN PLATELET VOLUME 7.5 fL (7.4-10.4); MONOCYTES % (AUTO) 9 % (2-9); NEUTROPHILS % (AUTO) 58 % (42-75); PLATELET COUNT 186 x10^3/uL (130-400); RED BLOOD COUNT 5.39 x10^6/uL (4.38-5.82); RED CELL DISTRIBUTION WIDTH 16.3 % (9.4-14.8)
[2020-08-23 21:44] LABS: MD NO
--- NOTE | 2020-08-23 21:47 | NUR ---
PT MEDICATED PER EMAR, PT STATING WANTING TO GET BETTER BUT HAVING BAD COPING MECHANISMS, PT STATES TRYING EVERYTHING BUT NOTHING SEEMS TO WORK. PT REASSURING PT TO CONTINUE LOOKING AT THE BRIGHT SIDE AND CONTINUING TO TRY TO BETTER SELF. PT AGREEABLE. ULTRASOUND AT BEDSIDE.
[2020-08-23 21:50] LABS: ALANINE AMINOTRANSFERASE 36 U/L (12-78); ALBUMIN 3.9 g/dL (3.4-5.0); ANION GAP 12 mmol/L (5-15); CALCIUM 8.5 mg/dL (8.5-10.1); CHLORIDE 103 mmol/L (98-107)
[2020-08-23 21:53] LABS: ALKALINE PHOSPHATASE 69 U/L (45-117); BILIRUBIN,TOTAL 0.6 mg/dL (0.2-1.0); CREATININE 0.98 mg/dL (0.7-1.3); TOTAL PROTEIN 7.6 g/dL (6.4-8.2)
[2020-08-23 23:08] VITALS: BP 109/74
== END 2020-08-23 23:51 | disposition home or self-care (01) ==
LOC: ED 21:21
DX: K29.20 Alcoholic gastritis without bleeding (principal); F10.120 Alcohol abuse with intoxication, uncomplicated; R00.0 Tachycardia, unspecified; Y90.0 Blood alcohol level of less than 20 mg/100 ml
CPT/HCPCS: 36415; 76700; 80053; 80307; 83690; 85025; 96361; 96372; 96374; 96375; 99285; J2060; J2405; J3411; J7030

== ENCOUNTER 2020-09-12 12:02 | Emergency (ER) | payer MEDICAID ==
[~2020-09-12] VITALS: Ht 182.9 cm; Wt 100.0 kg
--- NOTE | 2020-09-12 12:07 | NUR ---
PT BIBA FOR NAUSEA AND DIZZINESS, PT REPORTS ETOH WITHDRAWALS, LAST DRINK YESTERDAY. PT ON CARDIAC AND VITALS MONITORS, FALL PRECAUTIONS IN PLACE. CALL LIGHT WITHIN REACH.
[2020-09-12] MEDS ORDERED: PROCHLORPERAZINE 5 MG/ML, 2ML ONE (12:17)
[2020-09-12] MEDS ORDERED: PROCHLORPERAZINE 5 MG/ML, 2ML IVPush ONE (12:30)
[2020-09-12] MEDS ORDERED: SODIUM CHLORIDE 0.9% 1,000ML IVBOLUS ONE (12:30)
[2020-09-12] MEDS ORDERED: SODIUM CHLORIDE FLUSH 10ML SYR IVF ONE (12:30)
[2020-09-12 12:53] LABS: BASOPHILS % (AUTO) 1 % (0-1); EOSINOPHILS % (AUTO) 0 % (1-7); LYMPHOCYTES % (AUTO) 26 % (22-44); MEAN CORPUSCULAR HEMOGLOBIN 29.7 pg (27.5-34.5); MEAN PLATELET VOLUME 7.7 fL (7.4-10.4); MONOCYTES % (AUTO) 7 % (2-9); NEUTROPHILS % (AUTO) 67 % (42-75); PLATELET COUNT 209 x10^3/uL (130-400); RED BLOOD COUNT 4.87 x10^6/uL (4.38-5.82); RED CELL DISTRIBUTION WIDTH 16.1 % (9.4-14.8)
[2020-09-12 12:58] LABS: MD NO
[2020-09-12 13:00] LABS: ALANINE AMINOTRANSFERASE 35 U/L (12-78); ALBUMIN 3.7 g/dL (3.4-5.0); ANION GAP 10 mmol/L (5-15); CHLORIDE 103 mmol/L (98-107)
[2020-09-12 13:02] LABS: ALKALINE PHOSPHATASE 65 U/L (45-117); BILIRUBIN,TOTAL 0.6 mg/dL (0.2-1.0)
[2020-09-12 13:22] VITALS: BP 159/99
== END 2020-09-12 13:31 | disposition home or self-care (01) ==
LOC: ED 12:48
DX: R11.2 Nausea with vomiting, unspecified (principal); F10.221 Alcohol dependence with intoxication delirium; R19.7 Diarrhea, unspecified; R00.0 Tachycardia, unspecified; Y90.0 Blood alcohol level of less than 20 mg/100 ml; Z87.891 Personal history of nicotine dependence
CPT/HCPCS: 36415; 80053; 80320; 83735; 85025; 93005; 96361; 96374; 99284; J0780; J7030; G0480

== ENCOUNTER 2020-10-21 21:32 | Emergency (ER) | payer MEDICAID ==
[~2020-10-21] VITALS: Ht 182.9 cm; Wt 102.0 kg
[2020-10-21] MEDS ORDERED: SODIUM CHLORIDE FLUSH 10ML SYR IVF ONE (22:00)
[2020-10-21] MEDS ORDERED: LORazepam 2 MG/ML, 1ML ONE ×2 (22:07→23:22)
[2020-10-21] MEDS: LORazepam 2 MG/ML, 1ML IVPush PRN ×2 (22:11→22:53)
--- NOTE | 2020-10-21 22:11 | NUR ---
pt ambulated to room 38. pt shaky and states he feels weak. placed on cr monitor, and in [facility]. to juan pt.
--- NOTE | 2020-10-21 22:12 | NUR ---
piv started to right forearm, x3 attempts. meds given, per MD order. pt tolerated well, on cr monitor. call light within reach.
[2020-10-21 22:22] LABS: BASOPHILS % (AUTO) 0 % (0-1); EOSINOPHILS % (AUTO) 0 % (1-7); LYMPHOCYTES % (AUTO) 9 % (22-44); MEAN CORPUSCULAR HEMOGLOBIN 29.6 pg (27.5-34.5); MEAN CORPUSCULAR HGB CONC 34.2 g/dL (33.2-36.2); MEAN PLATELET VOLUME 7.7 fL (7.4-10.4); MONOCYTES % (AUTO) 9 % (2-9); NEUTROPHILS % (AUTO) 82 % (42-75); PLATELET COUNT 215 x10^3/uL (130-400); RED BLOOD COUNT 4.92 x10^6/uL (4.38-5.82); RED CELL DISTRIBUTION WIDTH 15.9 % (9.4-14.8)
[2020-10-21 22:24] LABS: MD NO
[2020-10-21 22:26] LABS: ALANINE AMINOTRANSFERASE 74 U/L (12-78); ALBUMIN 4.5 g/dL (3.4-5.0); ANION GAP 15 mmol/L (5-15); CALCIUM 9.7 mg/dL (8.5-10.1); CHLORIDE 102 mmol/L (98-107)
[2020-10-21 22:28] LABS: ALKALINE PHOSPHATASE 77 U/L (45-117); BILIRUBIN,TOTAL 1.1 mg/dL (0.2-1.0); TOTAL PROTEIN 7.9 g/dL (6.4-8.2)
[2020-10-21] MEDS ORDERED: MAGNESIUM SULFATE 1 GM, THIAMINE 100 MG, FOLIC ACID 1 MG, MVI ADULT 10 ML in SODIUM CHL... IV ONE (22:57)
[2020-10-21] MEDS ORDERED: MAGNESIUM SULFATE 1 GM, THIAMINE 100 MG, FOLIC ACID 1 MG in SODIUM CHLORIDE 0.9% 1,000 ML IV ONE (22:58)
[2020-10-21] MEDS ORDERED: SODIUM CHLORIDE 0.9% 1,000ML IVBOLUS ONE (23:00)
--- NOTE | 2020-10-21 23:09 | NUR ---
pt up to commode, no distress. 1liter NS started via piv and flat and soft, no redness. dressing cdi
[2020-10-21 23:13] LABS: PH, VENOUS 7.366 pH (7.320-7.420)
[2020-10-21 23:17] LABS: ACETONE, SERUM Trace (Negative)
--- NOTE | 2020-10-21 23:47 | NUR ---
ivf hung and infusing over 1 hour, per IV pump. pt awake and alert, and also given dose of ativan, per EMAR for ill feeling and nausea. pt alert and awake, on cr monitor, and call light within reach. iv site intact, no swelling, no redness and dressing cdi
[2020-10-22 01:17] VITALS: BP 143/81
--- NOTE | 2020-10-22 01:18 | NUR ---
Break RN: IV infusion complete. Patient states, "I feel much better." Patient discharge instructions given. All questions and concerns addressed. Patient ambulatory with a steady gait. Belongings with patient.
== END 2020-10-22 01:25 | disposition home or self-care (01) ==
LOC: ED 10-22 01:00
DX: F10.139 Alcohol abuse with withdrawal, unspecified (principal); R11.2 Nausea with vomiting, unspecified; E86.0 Dehydration; Z87.891 Personal history of nicotine dependence; Y90.9 Presence of alcohol in blood, level not specified
CPT/HCPCS: 36415; 80053; 80320; 82010; 82803; 85025; 96365; 96375; 99284; J2060; J3411; J3475; J7030; G0480

== ENCOUNTER 2020-11-03 23:35 | Emergency (ER) | payer MEDICAID ==
[~2020-11-03] VITALS: Ht 188 cm; Wt 95.0 kg
--- NOTE | 2020-11-03 23:41 | NUR ---
INITIAL PT CONTACT. SURAJ C/O ABD PAIN AND VOMITING X5 HOURS. RECENTLY SEEN 2 TIMES TODAY AT ANOTHER FACILITY FOR SAME, GIVEN IV FLUIDS AND ZOFRAN. PT REPORTS DRINKING "A WHOLE HANDLE A DAY, I GOING ON BENDERS WHERE I DRINK A LOT THEN I STOP". PT SITTING UPRIGHT ON GUCAREY, NADGabriela, VSS. CALL LIGHT AND PERSONAL BELONGINGS WITHIN REACH. ERP AT BEDSIDE.
[2020-11-03] MEDS ORDERED: PROMETHAZINE 25 MG/ML, 1ML ONE (23:50)
[2020-11-03] MEDS ORDERED: MAALOX/HYOSCYAMINE/LIDOCAINE 45 ML BTL ONE (23:50)
[2020-11-04] MEDS ORDERED: PROMETHAZINE 25 MG/ML, 1ML IM ONE
[2020-11-04] MEDS ORDERED: MAALOX/HYOSCYAMINE/LIDOCAINE 45 ML BTL PO ONE
[2020-11-04 00:29] LABS: ALANINE AMINOTRANSFERASE 52 U/L (12-78); ALBUMIN 4.2 g/dL (3.4-5.0); ANION GAP 16 mmol/L (5-15); CALCIUM 9.3 mg/dL (8.5-10.1); CHLORIDE 97 mmol/L (98-107); CREATININE 1.06 mg/dL (0.7-1.3)
[2020-11-04 00:32] LABS: ALKALINE PHOSPHATASE 67 U/L (45-117); BILIRUBIN,TOTAL 1.6 mg/dL (0.2-1.0); TOTAL PROTEIN 7.5 g/dL (6.4-8.2)
[2020-11-04 00:39] LABS: BASOPHILS % (AUTO) 1 % (0-1); EOSINOPHILS % (AUTO) 0 % (1-7); LYMPHOCYTES % (AUTO) 18 % (22-44); MEAN CORPUSCULAR HEMOGLOBIN 29.9 pg (27.5-34.5); MEAN PLATELET VOLUME 7.5 fL (7.4-10.4); MONOCYTES % (AUTO) 6 % (2-9); NEUTROPHILS % (AUTO) 76 % (42-75); PLATELET COUNT 235 x10^3/uL (130-400); RED BLOOD COUNT 4.91 x10^6/uL (4.38-5.82); RED CELL DISTRIBUTION WIDTH 15.9 % (9.4-14.8)
[2020-11-04 00:40] LABS: MD NO
--- NOTE | 2020-11-04 00:40 | NUR ---
PT AMBULATORY WITH STEADY GAIT TO BATHROOM. NO ADDITIONAL NEEDS AT THIS TIME. CALL LIGHT IN REACH
[2020-11-04] MEDS ORDERED: THIAMINE 100MG TABLET ONE (00:46)
[2020-11-04] MEDS ORDERED: CHLORDIAZEPOXIDE 25 MG CAPSULE ONE (00:46)
[2020-11-04 00:59] VITALS: BP 138/42
[2020-11-04] MEDS ORDERED: THIAMINE 100MG TABLET PO ONE (01:00)
[2020-11-04] MEDS ORDERED: CHLORDIAZEPOXIDE 25 MG CAPSULE PO PRN (01:00)
== END 2020-11-04 01:07 | disposition home or self-care (01) ==
LOC: ED 11-04 01:05
DX: K29.20 Alcoholic gastritis without bleeding (principal); R11.2 Nausea with vomiting, unspecified; F10.20 Alcohol dependence, uncomplicated; Y90.9 Presence of alcohol in blood, level not specified
CPT/HCPCS: 36415; 80053; 85025; 96372; 99284; J2550

== ENCOUNTER 2021-01-06 16:15 | Emergency (ER) | payer MEDICAID ==
[~2021-01-06] VITALS: Ht 177.8 cm; Wt 100.0 kg
[~2021-01-06 16:15] MED LIST changes: -FOLI-17 PO; +FOLI0.4T5 PO; +FOLI1TAB32 PO; +MULT-484 PO; -OXYC5TAB3 PO; +OXYC5TAB98 PO; +POTA20TA14 PO
[2021-01-06 17:41] LABS: BASOPHILS % (AUTO) 1 % (0-1); EOSINOPHILS % (AUTO) 0 % (1-7); LYMPHOCYTES % (AUTO) 17 % (22-44); MEAN CORPUSCULAR HEMOGLOBIN 29.8 pg (27.5-34.5); MEAN CORPUSCULAR HGB CONC 34.2 g/dL (33.2-36.2); MEAN PLATELET VOLUME 7.2 fL (7.4-10.4); MONOCYTES % (AUTO) 5 % (2-9); NEUTROPHILS % (AUTO) 77 % (42-75); PLATELET COUNT 258 x10^3/uL (130-400); RED BLOOD COUNT 4.94 x10^6/uL (4.38-5.82); RED CELL DISTRIBUTION WIDTH 15.4 % (9.4-14.8)
[2021-01-06 17:42] LABS: MD NO
[2021-01-06 17:49] LABS: ALBUMIN 3.7 g/dL (3.4-5.0); ANION GAP 18 mmol/L (5-15); CHLORIDE 100 mmol/L (98-107); CREATININE 1.08 mg/dL (0.7-1.3)
[2021-01-06] MEDS ORDERED: ONDANSETRON 2MG/ML, 2ML ONE ×2 (17:50→18:46)
[2021-01-06] MEDS ORDERED: ONDANSETRON 2MG/ML, 2ML IVPush ONE ×2 (18:00→19:00)
[2021-01-06] MEDS ORDERED: SODIUM CHLORIDE 0.9% 1,000ML IVBOLUS ONE (18:00)
[2021-01-06] MEDS ORDERED: SODIUM CHLORIDE FLUSH 10ML SYR IVF ONE (18:30)
[2021-01-06 19:27] VITALS: BP 129/76
--- NOTE | 2021-01-06 19:27 | NUR ---
Patient given discharge instructions and they have confirmed that they understand the instructions. Patient ambulatory with steady gait.
== END 2021-01-06 19:30 | disposition home or self-care (01) ==
LOC: ED 19:07
DX: F10.120 Alcohol abuse with intoxication, uncomplicated (principal); E86.0 Dehydration; R11.2 Nausea with vomiting, unspecified; R42 Dizziness and giddiness; R51.9 Headache, unspecified; I10 Essential (primary) hypertension; Z87.891 Personal history of nicotine dependence; Y90.0 Blood alcohol level of less than 20 mg/100 ml
CPT/HCPCS: 36415; 80048; 80320; 82040; 85025; 96361; 96374; 96375; 99284; J2405; J7030; G0480

== ENCOUNTER 2021-01-07 03:41 | Emergency (ER) | payer MEDICAID ==
[~2021-01-07] VITALS: Ht 182.9 cm; Wt 102.0 kg
[2021-01-07] MEDS ORDERED: PROMETHAZINE 25 MG/ML, 1ML ONE (03:58)
[2021-01-07] MEDS ORDERED: MAALOX/HYOSCYAMINE/LIDOCAINE 45 ML BTL ONE (03:58)
[2021-01-07] MEDS ORDERED: PROMETHAZINE 25 MG/ML, 1ML IM ONE (04:00)
[2021-01-07] MEDS ORDERED: MAALOX/HYOSCYAMINE/LIDOCAINE 45 ML BTL PO ONE (04:00)
--- NOTE | 2021-01-07 04:15 | NUR ---
patient resting in bed in NAD. CIWA 10. 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 states he took both of these "a few hours ago". Dr. mari notified and instructed to give ordered phenergan. patient having frequent PVC's on monitor. lab at bedside to draw labs. side rails up for safety and bed in lowest position. call will in reach. patient denies having a history of withdrawal seizure. no seizure precautions followed at this time. patient is seen her frequently for same complaint as today. was at [facility] ER last night for same
[2021-01-07 04:27] LABS: BASOPHILS % (AUTO) 1 % (0-1); EOSINOPHILS % (AUTO) 0 % (1-7); LYMPHOCYTES % (AUTO) 9 % (22-44); MEAN CORPUSCULAR HEMOGLOBIN 29.9 pg (27.5-34.5); MEAN CORPUSCULAR HGB CONC 33.7 g/dL (33.2-36.2); MEAN PLATELET VOLUME 7.6 fL (7.4-10.4); MONOCYTES % (AUTO) 10 % (2-9); NEUTROPHILS % (AUTO) 81 % (42-75); PLATELET COUNT 265 x10^3/uL (130-400); RED BLOOD COUNT 5.24 x10^6/uL (4.38-5.82); RED CELL DISTRIBUTION WIDTH 15.1 % (9.4-14.8)
[2021-01-07 04:28] LABS: MD NO
[2021-01-07 04:33] LABS: ALANINE AMINOTRANSFERASE 38 U/L (12-78); ALBUMIN 4.3 g/dL (3.4-5.0); ANION GAP 15 mmol/L (5-15); CALCIUM 9.4 mg/dL (8.5-10.1); CHLORIDE 101 mmol/L (98-107); CREATININE 1.18 mg/dL (0.7-1.3)
[2021-01-07 04:35] LABS: ALKALINE PHOSPHATASE 75 U/L (45-117); BILIRUBIN,TOTAL 1.1 mg/dL (0.2-1.0); TOTAL PROTEIN 8.1 g/dL (6.4-8.2)
--- NOTE | 2021-01-07 05:14 | NUR ---
discharge instructions reviewed with patient. patient has no plans to stop drinking alcohol. patient states "its a long story". VS remain stable on RA. steady gait in room. tolerating PO fluids. continues to report nausea. has nausea medications at home as well as a new presciption which was handed to patient directly. no IV placed during this ER visit. steady gait to [employer]. all personal belongings with patient on dc
[2021-01-07 05:15] VITALS: BP 122/80
== END 2021-01-07 05:17 | disposition home or self-care (01) ==
LOC: ED 04:11
DX: K29.20 Alcoholic gastritis without bleeding (principal); F10.10 Alcohol abuse, uncomplicated; R11.2 Nausea with vomiting, unspecified; I10 Essential (primary) hypertension; Z87.891 Personal history of nicotine dependence; Y90.0 Blood alcohol level of less than 20 mg/100 ml
CPT/HCPCS: 36415; 80053; 80320; 83690; 85025; 96372; 99283; J2550; G0480

== ENCOUNTER 2021-03-21 05:36 | Inpatient (IN) | payer MEDICAID ==
[~2021-03-21] VITALS: Ht 182.9 cm; Wt 102.0 kg
[2021-03-21] MEDS ORDERED: FAMOTIDINE 20 MG/2 ML ONE (05:52)
[2021-03-21] MEDS ORDERED: ONDANSETRON 2MG/ML, 2ML ONE ×2 (05:52→07:12)
[2021-03-21] MEDS ORDERED: FAMOTIDINE 20 MG/2 ML IVPush ONE (06:00)
[2021-03-21] MEDS ORDERED: SODIUM CHLORIDE 0.9% 1,000ML IVBOLUS ONE ×2 (06:00→07:30)
[2021-03-21] MEDS ORDERED: MORPHINE SULFATE 4 MG/ML, 1ML IVPush PRN (06:00)
[2021-03-21] MEDS ORDERED: SODIUM CHLORIDE FLUSH 10ML SYR IVF ONE (06:00)
[2021-03-21] MEDS ORDERED: ONDANSETRON 2MG/ML, 2ML IVPush ONE ×2 (06:00→07:30)
[2021-03-21 06:12] LABS: BASOPHILS % (AUTO) 1 % (0-1); EOSINOPHILS % (AUTO) 0 % (1-7); LYMPHOCYTES % (AUTO) 27 % (22-44); MEAN CORPUSCULAR HEMOGLOBIN 29.5 pg (27.5-34.5); MEAN CORPUSCULAR HGB CONC 34.6 g/dL (33.2-36.2); MEAN PLATELET VOLUME 7.4 fL (7.4-10.4); MONOCYTES % (AUTO) 9 % (2-9); NEUTROPHILS % (AUTO) 64 % (42-75); PLATELET COUNT 242 x10^3/uL (130-400); RED BLOOD COUNT 5.24 x10^6/uL (4.38-5.82); RED CELL DISTRIBUTION WIDTH 14.3 % (9.4-14.8)
--- NOTE | 2021-03-21 06:15 | NUR ---
Pt BIB by EMS from home for c/o N/V/D and ab pain from ETOH withdrawl. Pt states that he drink 1.75 L of ETOH last night and woke up this AM with the described symptoms. Pt changed into gown independently, connected to BP and O2 monitors, IV placed, tachy rythm otherwise VSS, A&O x4, able to transfer from [facility] to bed. NADN. MARIE.
[2021-03-21 06:23] LABS: ALANINE AMINOTRANSFERASE 89 U/L (12-78); ALBUMIN 4.2 g/dL (3.4-5.0); ANION GAP 15 mmol/L (5-15); CALCIUM 8.7 mg/dL (8.5-10.1); CHLORIDE 100 mmol/L (98-107)
[2021-03-21 06:25] LABS: ALKALINE PHOSPHATASE 75 U/L (45-117); BILIRUBIN,TOTAL 0.7 mg/dL (0.2-1.0); TOTAL PROTEIN 7.6 g/dL (6.4-8.2)
--- NOTE | 2021-03-21 06:54 | NUR ---
Report to Leanna BLOOD
--- NOTE | 2021-03-21 07:19 | NUR ---
Pt found with small amount clear liquid emesis with red flecks of bright red blood scantly troughout mucous-like emesis in bag. Zofran given at this time. NS with 700mL infused of first of 2 liters ordered. Morphine not given on nights due to ETOH consumption wihtout BA level posted at time of shift change.
--- NOTE | 2021-03-21 08:30 | NUR ---
Lab at bedside for repeat lab draw. Pt up to restroom and back after foundry laborer coreroom done.
--- NOTE | 2021-03-21 09:40 | NUR ---
TASK RN NOTE: SECOND BAG OF IVF INFUSING PER EMAR. NAD NOTED IN PT AT THIS TIME.
--- NOTE | 2021-03-21 10:20 | NUR ---
Pt up to restroom with second liter NS running slowly. Repeat lactic remains elevated and CT results reviewed with noted gallstones present. Pt up for admission and awaiting bed assignment for transfer.
[2021-03-21] MEDS ORDERED: OMNIPAQUE 350 MG/ML, 100ML BOTTLE ONE (10:30)
--- NOTE | 2021-03-21 10:41 | NUR ---
Admitting MD at bedside for exam.
[2021-03-21] MEDS ORDERED: PROMETHAZINE 25 MG/ML, 1ML IM PRN (11:00)
[2021-03-21] MEDS ORDERED: PROMETHAZINE 25MG TABLET PO PRN (11:00)
[2021-03-21] MEDS ORDERED: LORazepam 1MG TABLET PO PRN ×4 (11:00)
[2021-03-21] MEDS ORDERED: ACETAMINOPHEN 325 MG TABLET PO PRN (11:00)
[2021-03-21] MEDS ORDERED: LORazepam 2 MG/ML, 1ML IV PRN ×5 (11:00)
[2021-03-21] MEDS ORDERED: LORazepam 0.5MG TABLET PO PRN (11:00)
[2021-03-21] MEDS ORDERED: ONDANSETRON 2MG/ML, 2ML IV PRN (11:00)
--- NOTE | 2021-03-21 11:01 | NUR ---
Pt noted to be a med/tele hold at 0945. Pt c/o increased nausea again. MD notified.
[2021-03-21] MEDS ORDERED: METOCLOPRAMIDE 5 MG/ML, 2ML ONE (11:03)
[2021-03-21] MEDS ORDERED: ENOXAPARIN 40 MG/0.4 ML ONE (11:16)
[2021-03-21] MEDS: ENOXAPARIN 40 MG/0.4 ML SQ SCH (11:20)
--- NOTE | 2021-03-21 11:20 | NUR ---
Reglan given for nausea. Noted admit orders and meds requested from pharmacy not carried in ED. Lovenox given as ordered. Pt restless and nauseated. Second liter of NS still running slowly.
[2021-03-21] MEDS ORDERED: THIAMINE 200 MG in DEXTROSE 5% 50 ML IVPB SCH (11:30)
[2021-03-21] MEDS ORDERED: METOCLOPRAMIDE 5 MG/ML, 2ML IVPush ONE (11:30)
[2021-03-21 11:40] LABS: INTERNATIONAL NORMALIZED RATIO 1.07 (0.93-1.1); PROTHROMBIN TIME 11.4 Seconds (9.6-11.5)
--- NOTE | 2021-03-21 11:59 | NUR ---
Pt IV meds arrived from pharmacy and started Thiamine IVPB with NS. Pump set up on bed with LR with KCl 20 mEq readied for infusion when NS bolus completed.
[2021-03-21] MEDS ORDERED: DIAZEPAM 5 MG TABLET ONE (12:06)
[2021-03-21] MEDS: DIAZEPAM 5 MG TABLET PO SCH ×3 (12:07→22:54)
[2021-03-21 12:08] LABS: ACETONE, SERUM Negative (Negative)
[2021-03-21] MEDS: POTASSIUM CHLORIDE 20 MEQ in LACTATED RINGERS 1,000 ML IV SCH ×2 (12:10→21:45)
--- NOTE | 2021-03-21 12:12 | NUR ---
IVF via pump attached to NS lowest port. PO valium admin now. Pt aware of need for bed assignment. CLear liquid diet present and offered to order tray for pt. Pt declined stating he is not ready for anything yet.
[2021-03-21] MEDS ORDERED: MAGNESIUM SULFATE PMX 2GM/50ML 50 ML IV ONE (12:30)
[2021-03-21] MEDS ORDERED: MAGNESIUM SULFATE PMX 2GM/50ML 50 ML ONE (12:34)
[2021-03-21] MEDS ORDERED: POTASSIUM PHOSPHATE 44 MEQ in SODIUM CHLORIDE 0.9% 500 ML IV ONE (12:38)
--- NOTE | 2021-03-21 12:40 | NUR ---
Mag gtt IVPB started. Pharmacy request for Potassium Phosphate in NS sent via tube station and awaiting delivery of that for next IVF to admin. NS second liter still infusing slowly with about 500mL infused so far. LR with KCl via pump running at 100mL/hour as ordered without issue.
--- NOTE | 2021-03-21 12:43 | NUR ---
Noted RA sats decreased with pt rest to 88% and placed on 2L/min NC with good effect noted. Reassessment after intervention shows sat of 94%.
--- NOTE | 2021-03-21 12:48 | NUR ---
Potassium phosphate in NS received from pharmacy. Awaiting NS bolus to be complete before starting via pump as second IVF into current LR gtt.
--- NOTE | 2021-03-21 13:02 | NUR ---
TOOK REPORT FROM KATHERINE BLOOD, ASSUME CARE AT THIS TIME.
--- NOTE | 2021-03-21 13:11 | NUR ---
went over plan of care, all questions answered. warm blanket given. nad
--- NOTE | 2021-03-21 13:59 | NUR ---
Report given to JEREMI Abarca via telephone and pt readied for transfer to floor. Freddy requested this RN give report has I have been with him longer.
[2021-03-21 14:25] VITALS: BP 126/82
[2021-03-21] MEDS: INSULIN LISPRO 100 UNITS/ML, PEN SQ-INSULIN SCH ×2 (15:47→21:00)
[2021-03-21 18:46] VITALS: BP 118/77
[2021-03-21] MEDS ORDERED: QUETIAPINE 25MG TABLET PO SCH (21:00)
[2021-03-21] MEDS ORDERED: TRAZODONE 100MG TABLET PO SCH (21:00)
[2021-03-22 00:54] VITALS: BP 127/85
[2021-03-22] MEDS: DIAZEPAM 5 MG TABLET PO SCH (05:05)
[2021-03-22 06:15] LABS: BASOPHILS % (AUTO) 1 % (0-1); EOSINOPHILS % (AUTO) 0 % (1-7); LYMPHOCYTES % (AUTO) 41 % (22-44); MEAN CORPUSCULAR HEMOGLOBIN 29.4 pg (27.5-34.5); MEAN CORPUSCULAR HGB CONC 34.6 g/dL (33.2-36.2); MEAN PLATELET VOLUME 7.5 fL (7.4-10.4); MONOCYTES % (AUTO) 8 % (2-9); NEUTROPHILS % (AUTO) 49 % (42-75); PLATELET COUNT 155 x10^3/uL (130-400); RED BLOOD COUNT 4.35 x10^6/uL (4.38-5.82)
[2021-03-22 06:27] LABS: ALANINE AMINOTRANSFERASE 55 U/L (12-78); ALBUMIN 3.3 g/dL (3.4-5.0); ANION GAP 7 mmol/L (5-15); CALCIUM 8.3 mg/dL (8.5-10.1); CHLORIDE 108 mmol/L (98-107); CREATININE 0.72 mg/dL (0.7-1.3)
[2021-03-22 06:29] LABS: ALKALINE PHOSPHATASE 67 U/L (45-117); BILIRUBIN,TOTAL 1.6 mg/dL (0.2-1.0); TOTAL PROTEIN 5.9 g/dL (6.4-8.2)
[2021-03-22] MEDS ORDERED: OMEPRAZOLE 20 MG CAPSULE.DR PO SCH (07:00)
[2021-03-22] MEDS: INSULIN LISPRO 100 UNITS/ML, PEN SQ-INSULIN SCH ×2 (07:00→11:00)
[2021-03-22 07:37] VITALS: BP 119/80
[2021-03-22] MEDS ORDERED: MULTIVITAMINS/MINERALS TABLET PO SCH (09:00)
[2021-03-22] MEDS: POTASSIUM CHLORIDE 20 MEQ in LACTATED RINGERS 1,000 ML IV SCH (09:40)
[2021-03-22] MEDS ORDERED: THIAMINE 100MG TABLET PO SCH (11:00)
[2021-03-22] MEDS: ENOXAPARIN 40 MG/0.4 ML SQ SCH (11:17)
[2021-03-22] MEDS ORDERED: THIA100T67 PO (13:57)
[2021-03-22] MEDS ORDERED: FOLI1TAB32 PO (13:57)
[2021-03-22] MEDS ORDERED: MAGN400T50 PO (13:57)
[2021-03-22] MEDS ORDERED: MULT-484 PO (13:57)
[2021-03-22 15:17] VITALS: BP 117/78
[2021-03-22] MEDS ORDERED: DIAZEPAM 10 MG TABLET PO SCH (17:00)
== END 2021-03-22 16:18 | disposition home or self-care (01) | DRG 433 ==
LOC: ED 06:10 → EDIP 09:12 → 4WST 14:41 → DCLOUNGE 03-22 16:07
PROVIDERS: ADMIT Internal Medicine; ATTEND Internal Medicine
DX: K70.10 Alcoholic hepatitis without ascites (principal); E87.2 Acidosis; E86.0 Dehydration; F32.9 Major depressive disorder, single episode, unspecified; I10 Essential (primary) hypertension; Y90.8 Blood alcohol level of 240 mg/100 ml or more; Z60.2 Problems related to living alone; F43.10 Post-traumatic stress disorder, unspecified; K76.0 Fatty (change of) liver, not elsewhere classified; R73.9 Hyperglycemia, unspecified; K80.20 Calculus of gallbladder without cholecystitis without obstruction; E83.42 Hypomagnesemia; E87.6 Hypokalemia; F10.20 Alcohol dependence, uncomplicated; Z80.0 Family history of malignant neoplasm of digestive organs; Z82.49 Family history of ischemic heart disease and other diseases of the circulatory system; Z83.3 Family history of diabetes mellitus; Z79.899 Other long term (current) drug therapy
CPT/HCPCS: 36415; 71045; 74177; 80053; 80320; 82010; 82962; 83036; 83605; 83690; 83735; 84100; 84145; 85025; 85610; G0378; J1650; J2405; J3411; J3480; Q9967; G0480; J1815; J2765; J3475; J7030; J7040; J7120

== ENCOUNTER 2021-04-05 10:49 | Emergency (ER) | payer MEDICAID ==
[~2021-04-05] VITALS: Ht 182.9 cm; Wt 100.0 kg
[~2021-04-05 10:49] MED LIST changes: +MAGN400T50 PO
[2021-04-05] MEDS ORDERED: LORazepam 2 MG/ML, 1ML IVPush PRN (12:00)
[2021-04-05] MEDS ORDERED: SODIUM CHLORIDE FLUSH 10ML SYR IVF ONE (12:00)
[2021-04-05] MEDS ORDERED: SODIUM CHLORIDE 0.9% 1,000ML IVBOLUS ONE (12:00)
[2021-04-05] MEDS ORDERED: THIAMINE 100 MG in SODIUM CHLORIDE 0.9% 50 ML IVPB ONE (12:00)
[2021-04-05] MEDS ORDERED: ONDANSETRON 2MG/ML, 2ML IVPush ONE (12:00)
[2021-04-05 12:23] LABS: BASOPHILS % (AUTO) 0 % (0-1); EOSINOPHILS % (AUTO) 0 % (1-7); LYMPHOCYTES % (AUTO) 8 % (22-44); MEAN CORPUSCULAR HEMOGLOBIN 29.7 pg (27.5-34.5); MEAN CORPUSCULAR HGB CONC 34.2 g/dL (33.2-36.2); MEAN PLATELET VOLUME 7.7 fL (7.4-10.4); MONOCYTES % (AUTO) 5 % (2-9); NEUTROPHILS % (AUTO) 87 % (42-75); PLATELET COUNT 220 x10^3/uL (130-400); RED BLOOD COUNT 5.39 x10^6/uL (4.38-5.82); RED CELL DISTRIBUTION WIDTH 14.6 % (9.4-14.8)
[2021-04-05] MEDS ORDERED: ONDANSETRON 2MG/ML, 2ML ONE (12:25)
[2021-04-05] MEDS ORDERED: LORazepam 2 MG/ML, 1ML ONE (12:25)
[2021-04-05 12:29] VITALS: BP 108/88
[2021-04-05 12:33] LABS: ALBUMIN 4.8 g/dL (3.4-5.0); ANION GAP 25 mmol/L (5-15); CALCIUM 9.7 mg/dL (8.5-10.1); CHLORIDE 97 mmol/L (98-107)
[2021-04-05 12:40] LABS: ALANINE AMINOTRANSFERASE 53 U/L (12-78); ALKALINE PHOSPHATASE 85 U/L (45-117); BILIRUBIN,TOTAL 1.8 mg/dL (0.2-1.0); CREATININE 1.16 mg/dL (0.7-1.3); TOTAL PROTEIN 8.8 g/dL (6.4-8.2); TROPONIN I < 0.015 ng/mL (0.000-0.045)
== END 2021-04-05 13:41 | disposition home or self-care (01) ==
LOC: ED 11:25
DX: K29.20 Alcoholic gastritis without bleeding (principal); R45.4 Irritability and anger; F10.139 Alcohol abuse with withdrawal, unspecified; R00.0 Tachycardia, unspecified; Y90.0 Blood alcohol level of less than 20 mg/100 ml; I10 Essential (primary) hypertension; Z88.9 Allergy status to unspecified drugs, medicaments and biological substances
CPT/HCPCS: 36415; 80053; 83690; 84484; 85025; 93005; 96361; 96374; 96375; 99284; J2060; J2405; J7030

== ENCOUNTER 2021-06-01 18:58 | Inpatient (IN) | payer MEDICAID ==
[~2021-06-01] VITALS: Ht 182.9 cm; Wt 105.0 kg
[2021-06-01] MEDS ORDERED: THIAMINE 100 MG/ML, 2ML IM ONE (19:30)
[2021-06-01] MEDS ORDERED: SODIUM CHLORIDE 0.9% 1,000ML IVBOLUS ONE (19:30)
[2021-06-01] MEDS ORDERED: SODIUM CHLORIDE FLUSH 10ML SYR IVF ONE (19:30)
--- NOTE | 2021-06-01 19:38 | NUR ---
RECEIVED REPORT FROM EMS, THEY REPORT PATIENT HAS BEEN BINGE DRINKING OVER THE LAST TWO DAYS, PATIENT CONFIRMS THIS. PATIENT TRANSFERED SELF FROM EMS [facility] TO ED [facility]. NAD AT THIS TIME.
[2021-06-01 19:48] LABS: BASOPHILS % (AUTO) 1 % (0-1); EOSINOPHILS % (AUTO) 0 % (1-7); LYMPHOCYTES % (AUTO) 29 % (22-44); MEAN CORPUSCULAR HEMOGLOBIN 29.1 pg (27.5-34.5); MEAN CORPUSCULAR HGB CONC 33.9 g/dL (33.2-36.2); MEAN PLATELET VOLUME 7.4 fL (7.4-10.4); MONOCYTES % (AUTO) 4 % (2-9); NEUTROPHILS % (AUTO) 66 % (42-75); PLATELET COUNT 207 x10^3/uL (130-400); RED BLOOD COUNT 5.05 x10^6/uL (4.38-5.82); RED CELL DISTRIBUTION WIDTH 14.8 % (9.4-14.8)
[2021-06-01 19:55] LABS: ALBUMIN 3.8 g/dL (3.4-5.0); ANION GAP 17 mmol/L (5-15); CALCIUM 8.2 mg/dL (8.5-10.1); CHLORIDE 102 mmol/L (98-107); CREATININE 0.72 mg/dL (0.7-1.3)
--- NOTE | 2021-06-01 20:26 | NUR ---
PATIENT WAS FOUND LAYING ON FLOOR, WHEN ASKED WHY HE STATED HE "WANTED TO LAY FLAT" SO HE DECIEDED THE FLOOR WAS "A GOOD PLACE TO BE". WHEN TOLD HE NEEDED TO ASK FOR HELP HE SAID "I DON'T WANT TO BOTHER YOU AND BE AN ASS. YOU'RE JOB IS HARD ENOUGH" PATIENT ASSISTED BACK [facility]O [facility] AND [facility] LAYED FLAT.
[2021-06-01] MEDS ORDERED: THIAMINE 100MG TABLET ONE (20:48)
--- NOTE | 2021-06-01 20:53 | NUR ---
PATIENT MEDICATED PER AT THIS TIME. PATIENT DID REPORT HIS AUNT RECENTLY WHEN THIS STAFF WAS IN THE ROOM
[2021-06-01] MEDS ORDERED: LACTATED RINGERS 1,000 ML IVBOLUS ONE (21:00)
[2021-06-01 21:23] LABS: ACETONE, SERUM Trace (Negative)
--- NOTE | 2021-06-01 21:45 | NUR ---
PATIENT SLEEPING ON NAWAF CROWE AT THIS TIME. VSS. WILL CONTINUE TO MONITOR.
--- NOTE | 2021-06-01 22:11 | NUR ---
PATIENT CHANGED INTO YELLOW GOWN. NAD AT THIS TIME. VSS.
[2021-06-01] MEDS ORDERED: ONDANSETRON 2MG/ML, 2ML IV PRN (22:30)
[2021-06-01] MEDS ORDERED: POTASSIUM CHLORIDE 20 MEQ, MAGNESIUM SULFATE 1 GM, FOLIC ACID 1 MG, THIAMINE 200 MG, MV... IV ONE (22:30)
[2021-06-01] MEDS ORDERED: ACETAMINOPHEN 325 MG TABLET PO PRN (22:30)
[2021-06-01] MEDS ORDERED: BACLOFEN 10 MG TABLET PO PRN (22:30)
[2021-06-01] MEDS ORDERED: LORazepam 1MG TABLET PO PRN ×4 (22:30)
[2021-06-01] MEDS ORDERED: LABETALOL 5MG/ML, 20ML IV PRN (22:30)
[2021-06-01] MEDS ORDERED: DOCUSATE 100 MG CAPSULE PO PRN (22:30)
[2021-06-01] MEDS ORDERED: LORazepam 2 MG/ML, 1ML IV PRN ×3 (22:30)
[2021-06-01] MEDS ORDERED: LORazepam 0.5MG TABLET PO PRN (22:30)
[2021-06-01] MEDS ORDERED: BISACODYL 10 MG SUPP PR PRN (22:30)
[2021-06-01] MEDS ORDERED: ACETAMINOPHEN 650 MG SUPP PR PRN (22:30)
[2021-06-01] MEDS ORDERED: LORazepam 2 MG/ML, 1ML ONE (22:51)
--- NOTE | 2021-06-01 23:02 | NUR ---
MEDICATED PATIENT PER MAR PER CIWA SCORE OF 19.
[2021-06-01] MEDS ORDERED: ENOXAPARIN 40 MG/0.4 ML ONE (23:09)
[2021-06-01] MEDS: ENOXAPARIN 40 MG/0.4 ML SQ SCH (23:09)
--- NOTE | 2021-06-01 23:33 | NUR ---
Pt to be admitted to [facility], room 493-1. Report called to JEREMI CHAN.
[2021-06-02] MEDS: LORazepam 2 MG/ML, 1ML IV PRN ×5 (01:12→22:39)
[2021-06-02 01:19] VITALS: BP 146/91
[2021-06-02] MEDS: POTASSIUM CHLORIDE 10 MEQ in D5%-LACTATED RINGERS 1,000 ML IV SCH ×2 (06:15→17:35)
[2021-06-02 06:28] LABS: BASOPHILS % (AUTO) 1 % (0-1); EOSINOPHILS % (AUTO) 0 % (1-7); LYMPHOCYTES % (AUTO) 36 % (22-44); MEAN CORPUSCULAR HEMOGLOBIN 29.4 pg (27.5-34.5); MEAN CORPUSCULAR HGB CONC 33.7 g/dL (33.2-36.2); MEAN PLATELET VOLUME 7.6 fL (7.4-10.4); MONOCYTES % (AUTO) 7 % (2-9); NEUTROPHILS % (AUTO) 56 % (42-75); PLATELET COUNT 155 x10^3/uL (130-400); RED BLOOD COUNT 4.55 x10^6/uL (4.38-5.82)
[2021-06-02 06:51] LABS: ALANINE AMINOTRANSFERASE 42 U/L (12-78); ALBUMIN 3.4 g/dL (3.4-5.0); ANION GAP 13 mmol/L (5-15); CHLORIDE 102 mmol/L (98-107); CREATININE 0.67 mg/dL (0.7-1.3)
[2021-06-02 06:54] LABS: ALKALINE PHOSPHATASE 57 U/L (45-117); BILIRUBIN,TOTAL 0.7 mg/dL (0.2-1.0); TOTAL PROTEIN 6.3 g/dL (6.4-8.2)
[2021-06-02] MEDS ORDERED: POTASSIUM CHLORIDE 20 MEQ, MAGNESIUM SULFATE 1 GM, FOLIC ACID 1 MG, THIAMINE 200 MG, MV... IV SCH ×2 (07:00→23:00)
[2021-06-02 07:23] VITALS: BP 113/72
[2021-06-02] MEDS: FAMOTIDINE 20 MG TABLET PO SCH ×2 (10:09→20:45)
[2021-06-02] MEDS: MULTIVITAMINS/MINERALS TABLET PO SCH (10:09)
[2021-06-02 14:58] VITALS: BP 120/72
[2021-06-02 20:19] VITALS: BP 137/87
[2021-06-02] MEDS: DIAZEPAM 5 MG TABLET PO SCH (22:39)
[2021-06-02] MEDS: ENOXAPARIN 40 MG/0.4 ML SQ SCH (22:39)
[2021-06-03 00:29] VITALS: BP 121/73
[2021-06-03] MEDS: POTASSIUM CHLORIDE 10 MEQ in D5%-LACTATED RINGERS 1,000 ML IV SCH (03:12)
[2021-06-03] MEDS: DIAZEPAM 5 MG TABLET PO SCH (05:31)
[2021-06-03 06:16] LABS: BASOPHILS % (AUTO) 0 % (0-1); EOSINOPHILS % (AUTO) 0 % (1-7); LYMPHOCYTES % (AUTO) 29 % (22-44); MEAN PLATELET VOLUME 7.9 fL (7.4-10.4); MONOCYTES % (AUTO) 7 % (2-9); NEUTROPHILS % (AUTO) 64 % (42-75); PLATELET COUNT 149 x10^3/uL (130-400); RED BLOOD COUNT 4.54 x10^6/uL (4.38-5.82); RED CELL DISTRIBUTION WIDTH 14.9 % (9.4-14.8)
[2021-06-03 06:19] LABS: ANION GAP 8 mmol/L (5-15); CALCIUM 8.3 mg/dL (8.5-10.1); CHLORIDE 102 mmol/L (98-107)
[2021-06-03 06:20] LABS: CREATININE 0.63 mg/dL (0.7-1.3)
[2021-06-03] MEDS: FOLIC ACID 1 MG TABLET PO SCH (08:25)
[2021-06-03] MEDS: POTASSIUM CHLORIDE 20 MEQ TAB.ER.PRT PO SCH ×2 (08:25→18:18)
[2021-06-03] MEDS: THIAMINE 100MG TABLET PO SCH (08:26)
[2021-06-03] MEDS: MULTIVITAMINS/MINERALS TABLET PO SCH (08:26)
[2021-06-03] MEDS: FAMOTIDINE 20 MG TABLET PO SCH ×3 (08:26→21:50)
[2021-06-03 08:38] VITALS: BP 159/95
[2021-06-03 15:07] VITALS: BP 138/92
[2021-06-03] MEDS: ENOXAPARIN 40 MG/0.4 ML SQ SCH (21:50)
[2021-06-03 21:52] VITALS: BP 153/94
[2021-06-04 02:00] VITALS: BP 136/88
[2021-06-04 06:49] VITALS: BP 134/89
[2021-06-04 07:28] LABS: ANION GAP 6 mmol/L (5-15); CALCIUM 9.2 mg/dL (8.5-10.1); CHLORIDE 103 mmol/L (98-107); CREATININE 0.66 mg/dL (0.7-1.3)
[2021-06-04] MEDS: POTASSIUM CHLORIDE 20 MEQ TAB.ER.PRT PO SCH (08:14)
[2021-06-04] MEDS: FOLIC ACID 1 MG TABLET PO SCH (08:14)
[2021-06-04] MEDS: FAMOTIDINE 20 MG TABLET PO SCH (08:14)
[2021-06-04] MEDS: THIAMINE 100MG TABLET PO SCH (08:15)
[2021-06-04] MEDS: MULTIVITAMINS/MINERALS TABLET PO SCH (08:15)
== END 2021-06-04 11:18 | disposition home or self-care (01) | DRG 392 ==
LOC: ED 21:39 → EDIP 22:44 → 4EST 06-02 00:20
PROVIDERS: ADMIT Internal Medicine; ATTEND Family Medicine
DX: K29.20 Alcoholic gastritis without bleeding (principal); E44.1 Mild protein-calorie malnutrition; E87.2 Acidosis; F10.239 Alcohol dependence with withdrawal, unspecified; E86.0 Dehydration; E87.6 Hypokalemia; F10.229 Alcohol dependence with intoxication, unspecified; F32.9 Major depressive disorder, single episode, unspecified; F41.1 Generalized anxiety disorder; G47.00 Insomnia, unspecified; I10 Essential (primary) hypertension; R09.02 Hypoxemia; E66.01 Morbid (severe) obesity due to excess calories; Z68.31 Body mass index [BMI] 31.0-31.9, adult
CPT/HCPCS: 36415; 96372; 96374; 99285; J7121; 80048; 80053; 80320; 82010; 82040; 83605; 83735; 84100; 85025; G0378; J1650; J3411; J3475; J3480; G0480; J2060; J7030; J7120